=== PATIENT | male | born 1935 | race Caucasian/White ===

== ENCOUNTER 2016-11-26 09:39 | Emergency (ER) | payer MEDICARE, OTHER ==
[~2016-11-26] VITALS: Ht 175.3 cm; Wt 96.4 kg
[~2016-11-26 09:39] MED LIST: ALBU8.5H2 INHALATION; ASPI-973 PO; ATOR80TA77 PO; CALC0.257 PO; CHOL200025 PO; CLOP75TA3 PO; DILT30TA PO; FLUT16SP NASAL; ISOS60TA2 PO; METO75TA PO; NITR0.4T SL; OXYC5TAB72 PO; SENN-133 PO; SODI325T PO; TAMS0.4C29 PO; TORS20TA3 PO
--- NOTE | 2016-11-26 09:40 | ED.REPORT ---
HPI-Syncope Date of Service Nov 26, 2016 ED Provider: Noel Clemons MD 81 year old male with a history of CAD s/p SD with multiple stents, Afib S/p ablation and ESRD on dialysis 3 times weekly who presents to the ER via EMS following a near syncopal episode at the dialysis center ([facility]) today. The patient completed his dialysis and then went to the bathroom while still at the center. While in the bathroom, he felt near syncopal and pulled on the alert string. He was found to be pale and diaphoretic with a BP of 100S. EMS laid the patient on the ground. His color improved and he felt better. Pt denies pain, fever, cough and diarrhea. Pt is not on anticoagulants. He has not taken any of his medications this morning. 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: [facility] Nursing Notes Stated Complaint: SYNCOPE Nursing Notes Reviewed: Yes Allergies: Coded Allergies: Quinolones (Verified Allergy, Severe, destroyed achilles tendons and calf muscle, 04/26/16) ciprofloxacin (Verified Allergy, Intermediate, 04/26/16) Scheduled Aspirin (Aspirin) 81 Mg Tablet 81 MG PO DAILY Atorvastatin Calcium (Atorvastatin Calcium) 80 Mg Tablet 40 MG PO DAILY Calcitriol (Rocaltrol) 0.25 Mcg Capsule 2 CAPSULE PO DAILY Cholecalciferol (Vitamin D3) (Vitamin D3) 2,000 Unit Tablet 1,000 UNIT PO DAILY Clopidogrel Bisulfate (Plavix) 75 Mg Tablet 75 MG PO DAILY Isosorbide MN ER (Isosorbide MN ER) 60 Mg Tab.er.24h 60 MG PO DAILY Metoprolol Tartrate (Metoprolol Tartrate) 75 Mg Tablet 75 MG PO BID Sennosides (Senna) 8.6 Mg Tablet 8.6 MG PO DAILY Sodium Bicarbonate (Sodium Bicarbonate) 325 Mg Tablet 2 TAB PO TID Tamsulosin ER (Tamsulosin ER) 0.4 Mg Cap.er.24h 0.4 MG PO HS Torsemide (Torsemide) 20 Mg Tablet 40 MG PO DAILY Scheduled PRN Albuterol HFA (Proair HFA) 8.5 Gm Hfa.aer.ad 2 PUFFS INHALATION Q4H PRN PRN For Shortness of Breath Diltiazem (Diltiazem) 30 Mg Tablet 30 MG PO QID PRN PRN palpitations Fluticasone Propionate (Fluticasone Propionate Nasal) 16 Gm [place].susp 1 SPRAY NASAL DAILY PRN PRN For Congestion Nitroglycerin SL (Nitrostat) 0.4 Mg Tablet 0.4 MG SL Q5MIN PRN PRN For Chest Pain oxyCODONE (oxyCODONE) 5 Mg Tablet 1 TAB PO Q4H PRN PRN For Pain General Time Seen by Provider: 09:39 Chief Complaint [place] faint Hx Obtained From: Patient, EMS Arrived By: Ambulance Onset Occurred: Just prior to arrival Symptom Duration: Since onset Severity: Current: No pain currently Associated with: Reports: Diaphoresis, Denies: Fever, Shortness of breath Past Medical History Past Medical History Notes: admitted with non STEMI on April 02 2016 with chest pain medically managed and discharged home diagnosis was renal pelvis solid mass without admission went home on and came back on in ER in SVT converted with 2 doses Adenosine and sent home back on with afib with RVR and chest pain On April 06 2016 Metoprol increased to 75 mg twice daily and on Plavix and ASA no other blood thinners. 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 Physical Exam Initial Vital Signs Vital Signs (First) Date Time Temp Pulse Resp B/P Pulse Ox O2 Delivery O2 Flow Rate FiO2 11/26/16 09:49 35.5 130 16 100/59 97 Room Air Initial VS: Reviewed Head / Eyes: Atraumatic, Normocephalic, PERRL ENT: Mucous membranes moist, Conjunctiva normal, No scleral icterus Neck: Supple, Non-tender, Full range of motion Abdomen / GI: Soft, Non-tender, No guarding, No rebound, No distention Upper Extremities: Vascular intact, Neuro intact, No swelling, No tenderness Skin: Warm, Dry, No cyanosis Psychiatric: Mood/affect normal, Behavior normal, Normal thought content General/Constitutional: Awake, Alert Respiratory / Chest: Breath sounds NL, Breath sounds = bilat, No respiratory distress, No rales, No rhonchi, No wheezing Cardiovascular: Heart sounds NL, No murmurs, Cap refill not delayed, Peripheral circulation NL Heart Rate / Rhythm: Positive: Irreg irregular rhythm, Tachycardia Lower Extremity / Pelvis / MS: Full range of motion, Neurologic intact, Vascular intact, No edema Neurologic: Oriented X3, Speech NL, No motor deficits Interpretation & Diagnostics Lab Results Interpretation Result Diagram: 11/26/16 1010 11/26/16 1010 Test 11/26/16 10:10 White Blood Count 5.0th/mm3 (3.8-10.1) Red Blood Count 3.10mil/mm3 (4.40-5.80) Hemoglobin 10.5g/dL (13.8-17.2) Hematocrit 31.2% (41.0-50.0) Mean Corpuscular Volume 100.6fL (81-100) Mean Corpuscular Hemoglobin 33.9pg (27.0-35.0) Mean Corpuscular Hemoglobin Concent 33.7% (32.0-37.0) Red Cell Distribution Width 12.3% (12.3-15.4) Platelet Count 180bil/L (150-400) Neutrophils (%) (Auto) 49.9% (40-74) Lymphocytes (%) (Auto) 22.3% (14-46) Monocytes (%) (Auto) 11.1% (4-12) Eosinophils (%) (Auto) 15.7% (0-5) Basophils (%) (Auto) 0.8% (0-3) Sodium Level 139mEq/L (134-144) Potassium Level 3.1mEq/L (3.5-5.2) Chloride Level 95mEq/L (97-108) Carbon Dioxide Level 26mmol/L (18-29) Blood Urea Nitrogen 13mg/dL (8-27) Creatinine 2.65mg/dL (0.76-1.27) Estimat Glomerular Filtration Rate 25mL/min (>59) Glucose Level 102mg/dL (60-99) Calcium Level 8.6mg/dL (8.5-10.1) Total Bilirubin 0.4mg/dL (0.0-1.2) Aspartate Amino Transf (AST/SGOT) 14U/L (0-50) Alanine Aminotransferase (ALT/SGPT) 10U/L (0-44) Alkaline Phosphatase 70U/L (25-160) Total Creatine Kinase 57U/L (21-232) Creatine Kinase MB 1.9ng/mL (0.0-10.4) Creatine Kinase MB % % (0.0-5.0) Total Protein 6.2g/dL (6.4-8.4) Albumin 3.6g/dL (3.4-5.0) Hold Mendez Top Tube Received (Received) ECG Interpretation ECG Interpretation: PVC present Time: 10:28 Interpreted by: ED physician Normal ECG Interpretation: Normal rate (95) Rhythm / Conduction: Atrial fibrillation Re-Eval/Medical Decision Med Decision/Clinical Course Patient is ambulatory without difficulty and is not symptomatic from his relatively low blood pressure and mild tachycardia. Re-Evaluation/Progress #1: Time of Eval: 12:32 Re-Evaluation/Progress Note: Pt is awake and alert. Heart rate is 111 in Afib. BP 84/50. Re-Evaluation/Progress #2: Time of Eval: 12:57 Re-Evaluation/Progress Note: Pt passed road test. Discussed plan for discharge and follow up. All questions addressed. Counseled Regarding: Diagnosis, Lab results, Need for follow-up, When/why to return to ED Discharge & Departure Impression: Primary Impression: Transient hypotension Additional Impressions: Orthostatic hypotension Atrial fibrillation with rapid ventricular response Disposition: Home Discharge Condition All VS Reviewed: Yes Condition: Stable Patient Instructions: Atrial Fibrillation (ED) Additional Instructions: Your heart rhythm is currently atrial fibrillation. This may require further treatment. I recommend that you follow-up with cardiology to discuss ongoing treatment for this. In the meantime, take your metoprolol one half tablet twice daily. Do not take your blood pressure medication (metoprolol) if your blood pressure is less than 120 and your heart rate is less than 110. Referrals: Valdo Horvath MD (PCP) Janeth Chacon MD, Parampreet S MD [place] Attestation Portions of this note were transcribed by Lindsey Moreland. I, (Dr. Clemons) personally performed the history, physical exam and medical decision-making; I reviewed and confirmed the accuracy of the information in the transcribed note. Signed by: Lindsey Moreland. Ramiroibjory, 11/26/2016, 9554 copies to: Janeth Chacon MD; Alka Khoury MD; Valdo Horvath MD, Kirk H MD Nov 26, 2016 09:40 Lindsey Moreland Nov 26, 2016 09:43
[2016-11-26 09:49] VITALS: BP 100/59; PULSE 130; RESP 16; O2SAT 97
[2016-11-26 10:10] VITALS: BP 94/64; PULSE 115; RESP 18; O2SAT 97
[2016-11-26 10:24] LABS: BASOPHILS % (AUTO) 0.8 % (0-3); EOSINOPHILS % (AUTO) 15.7 % (0-5); MONOCYTES % (AUTO) 11.1 % (4-12); Mean Corpuscular Hemoglobin 33.9 pg (27.0-35.0); Mean Corpuscular Volume 100.6 fL (81-100); NEUTROPHILS % (AUTO) 49.9 % (40-74); Platelet Count 180 bil/L (150-400)
[2016-11-26 10:40] VITALS: BP 100/62; PULSE 115; RESP 18; O2SAT 97
[2016-11-26 11:07] LABS: Creatine Kinase 57 U/L (21-232)
[2016-11-26 11:50] VITALS: BP 98/60; PULSE 108; RESP 18; O2SAT 98
[2016-11-26 12:40] VITALS: BP 84/50; PULSE 102; RESP 18; O2SAT 97
[2016-11-26 12:45] VITALS: BP 106/57; PULSE 110; RESP 18; O2SAT 97
== END 2016-11-26 13:33 | disposition home or self-care (01) ==
LOC: SED 09:39
DX: I95.1 Orthostatic hypotension (principal); I48.91 Unspecified atrial fibrillation; I13.11 Hypertensive heart and chronic kidney disease without heart failure, with stage 5 chronic kidney disease, or end stage renal disease; N18.6 End stage renal disease; I25.10 Atherosclerotic heart disease of native coronary artery without angina pectoris; I25.2 Old myocardial infarction; K21.9 Gastro-esophageal reflux disease without esophagitis; E78.5 Hyperlipidemia, unspecified; Z99.2 Dependence on renal dialysis; Z95.5 Presence of coronary angioplasty implant and graft; Z79.82 Long term (current) use of aspirin; Z87.891 Personal history of nicotine dependence; Z88.1 Allergy status to other antibiotic agents; Z88.8 Allergy status to other drugs, medicaments and biological substances

== ENCOUNTER 2017-01-03 08:40 | Emergency (ER) | payer MEDICARE, OTHER ==
[~2017-01-03] VITALS: Ht 175.3 cm; Wt 97.3 kg
[2017-01-03 08:49] VITALS: BP 145/70; PULSE 87; RESP 18; O2SAT 100
--- NOTE | 2017-01-03 09:00 | ED.REPORT ---
HPI-General Illness Date of Service Jan 03, 2017 ED Provider: Noel Clemons MD An 81 year old male dialysis patient in ESRD with a history of ND, HTN, and nephrolithiasis presents to the ED via EMS c/o urine retention and abdominal pain described as cramps, his last urination occurring 6-8 hours before arrival at ED. At 0200 today, the patient woke up and could not urinate, sitting on the toilet for the rest of the night trying to urinate with no success. He feels like his bladder is full and there is still something left. He denies that symptoms feel like past nephrolithiasis. He normally urinates every 3 hours night and day, but reports never experiencing urinary retention like this in the past, and has never seen blood in his urine before. Associated symptoms include hematuria, spasms, and increased painful BM. Per EMS, two IV access attempts were made en route with no success. He has a fistula on his right arm. He took hydrocodone today at 0830 which made his pain tolerable, and normally takes tamsulosin. He did not go to scheduled 0530 dialysis that was scheduled for this morning. He denies any fever, chills, or nausea. He has not seen a urologist lately. Nursing Notes Stated Complaint: URINARY RETENTION Chief Complaint: General Complaint Nursing Notes Reviewed: Yes Allergies: Coded Allergies: Quinolones (Verified Allergy, Severe, destroyed achilles tendons and calf muscle, 04/26/16) ciprofloxacin (Verified Allergy, Intermediate, 04/26/16) Scheduled Aspirin (Aspirin) 81 Mg Tablet 81 MG PO DAILY Atorvastatin Calcium (Atorvastatin Calcium) 80 Mg Tablet 40 MG PO DAILY Calcitriol (Rocaltrol) 0.25 Mcg Capsule 2 CAPSULE PO DAILY Cholecalciferol (Vitamin D3) (Vitamin D3) 2,000 Unit Tablet 1,000 UNIT PO DAILY Clopidogrel Bisulfate (Plavix) 75 Mg Tablet 75 MG PO DAILY Isosorbide MN ER (Isosorbide MN ER) 60 Mg Tab.er.24h 60 MG PO DAILY Metoprolol Tartrate (Metoprolol Tartrate) 75 Mg Tablet 75 MG PO BID Sennosides (Senna) 8.6 Mg Tablet 8.6 MG PO DAILY Sodium Bicarbonate (Sodium Bicarbonate) 325 Mg Tablet 2 TAB PO TID Tamsulosin ER (Tamsulosin ER) 0.4 Mg Cap.er.24h 0.4 MG PO HS Torsemide (Torsemide) 20 Mg Tablet 40 MG PO DAILY Scheduled PRN Albuterol HFA (Proair HFA) 8.5 Gm Hfa.aer.ad 2 PUFFS INHALATION Q4H PRN PRN For Shortness of Breath Diltiazem (Diltiazem) 30 Mg Tablet 30 MG PO QID PRN PRN palpitations Fluticasone Propionate (Fluticasone Propionate Nasal) 16 Gm [place].susp 1 SPRAY NASAL DAILY PRN PRN For Congestion Nitroglycerin SL (Nitrostat) 0.4 Mg Tablet 0.4 MG SL Q5MIN PRN PRN For Chest Pain oxyCODONE (oxyCODONE) 5 Mg Tablet 1 TAB PO Q4H PRN PRN For Pain General Time Seen by MD: 08:59 Chief Complaint Other (urine retention.) Hx Obtained From: Patient, EMS Arrived By: Ambulance Sudden in Onset?: No Onset Occurred: 5 - 8 hours ago Symptom Duration: Since onset Severity: Current: Moderate Severity: Maximum: Moderate Recent Healthcare: Recent doctor visit Similar Sx Previous: No Past Medical History Past Medical History Notes: admitted with non STEMI on April 02 2016 with chest pain medically managed and discharged home diagnosis was renal pelvis solid mass without admission went home on and came back on in ER in SVT converted with 2 doses Adenosine and sent home back on with afib with RVR and chest pain On April 06 2016 Metoprol increased to 75 mg twice daily and on Plavix and ASA no other blood thinners. 11/26/2016 ED visit for near syncopal episode after dialysis appointment. 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 Hyperlipidemia Secondary hyperparathyroidism Moderate mitral regurgitation Reports: Asthma, Cancer (skin cancer removed at approx age 50), Congestive heart failure, Hypertension Past Surgical History Reports: CABG Smoking History Former Smoker (quit approx 30 years ago) Social History Alcohol Use: 1-3 per day Drug Use: Denies drug use Other Social History: Ambulatory Status Independent Review of Systems Spasms Increased, painful BM Full Review of Systems Constitutional: Denies: Chills, Fever GI: Reports: Abdominal pain, Denies: Nausea Male: Reports Hematuria, Reports Urination decreased (urine retention) Complete sys rev & neg: except as marked. Physical Exam Vital Signs Vital Signs Date Time Temp Pulse Resp B/P Pulse Ox O2 Delivery O2 Flow Rate FiO2 01/03/17 13:06 36.8 88 18 140/72 99 Room Air 01/03/17 08:49 36.8 87 18 145/70 100 Room Air Initial VS: Reviewed General/Constitutional: Awake, Alert Head / Eyes: Atraumatic, Normocephalic, PERRL, EOMI ENT: Atraumatic, Mucous membranes moist Respiratory / Chest: Atraumatic, Breath sounds NL, Breath sounds = bilat, No respiratory distress, No rales, No rhonchi, No wheezing Cardiovascular: Heart rate NL, Regular rhythm, Heart sounds NL, No gallop, No murmurs, No rubs No peripheral edema. Tenderness/Guarding/Rebound: Positive: Tender diffuse (Tender abdomen), Tender suprapubic (mild) Skin: Warm, Dry Neurologic: Oriented X3, Speech NL Interpretation & Diagnostics Lab Results Interpretation Test 01/03/17 09:16 Urine Color Red (YELLOW) Urine Appearance Turbid (CLEAR,HAZY) Urine pH 7.5 (5.0-8.0) Urine Specific [place] 1.025 (1.003-1.035) Urine Protein >300mg/dL (NEG,TRACE) Urine Glucose (UA) 250mg/dL (NEGATIVE) Urine Ketones Negativemg/dL (NEGATIVE) Urine Occult Blood Large (NEGATIVE) Urine Nitrite Negative (NEGATIVE) Urine Bilirubin Negative (NEGATIVE) Urine Urobilinogen Normalmg/dL (NORMAL) Urine Leukocyte Esterase Negative (NEGATIVE) Urine RBC Packed/hpf (0-2) Urine WBC 0-5/hpf (0-5) Urine Epithelial Cells Occasional/hpf (NONE-MOD) Urine Crystals None seen (NONE SEEN) Urine Bacteria None/hpf (NONE-FEW) Urine Hyaline Casts None/lpf (NONE) Urine Granular Casts None seen (NONE SEEN) Urine Waxy Casts None seen (NONE SEEN) Urine Red Blood Cell Casts None seen (NONE SEEN) Urine White Blood Cell Casts None seen (NONE SEEN) Urine Mucus None seen (None Seen) Urine Trichomonas None seen (NONE SEEN) Urine Yeast None (NONE SEEN) Urinalysis Comment None Urine Culture Reflexed Not indicated Hold Urine Received (Received) Re-Eval/Medical Decision Source of Hx: Old records, EMS Time of Eval: 09:16 Re-Evaluation/Progress Note: 400 cc of blood came out of catheter. Patient reports that they do not normally urinate very much. He feels signifigantly better with catheter. He does report occasional spasms. Time of Eval: 09:55 Patient Status: Condition improved Re-Evaluation/Progress Note: Rechecked patient who reports that he is feeling much better since catheter placement. He normally takes hydrocodone and oxycodoe, he would like oxycodone. Time of Eval: 12:11 Re-Evaluation/Progress Note: Rechecked patient and placed catheter. Explained test results, diagnosis, and plan for discharge. Patient understands and agrees with the plan. All questions addressed. Counseled Regarding: Diagnosis, Lab results, Need for follow-up Discharge & Departure Primary Impression: Acute urinary retention Additional Impression: Gross hematuria Disposition: Home Discharge Condition All VS Reviewed: Yes Condition: Stable Patient Instructions: Acute Hematuria (ED), How to Care for Your [place] Catheter (ED) Additional Instructions: No evidence of infection at this time. We were able to relieve the blockage of flow by inserting a urinary catheter. Please leave this in place until you are seen at the urology clinic. Follow up right away for fever or excessive pain or vomiting. Referrals: Valdo Horvath MD (PCP) Sotero Vera MD Other Scribe Attestation Portions of this note were transcribed by Francesco Collazo. I, Dr. Clemons personally performed the history, physical exam and medical decision-making; I reviewed and confirmed the accuracy of the information in the transcribed note. Signed by: Yennifer You, 01/03/2017, 1241. copies to: Sotero Vera MD; Valdo Horvath MD, Kirk H MD Jan 03, 2017 09:00 Francesco Collazo Jan 03, 2017 09:06
[2017-01-03] MEDS ORDERED: oxyCODONE-Acetamin 5-325 mg Tablet PO ONE (10:00)
[2017-01-03 10:40] LABS: APPEARANCE,URINE TURBID (CLEAR,HAZY); COLOR,URINE RED (YELLOW); OCCULT BLOOD,URINE LARGE (NEGATIVE); PH,URINE 7.5 (5.0-8.0); UROBILINOGEN,URINE NORMAL (NORMAL)
[2017-01-03 13:06] VITALS: BP 140/72; PULSE 88; RESP 18; O2SAT 99
== END 2017-01-03 12:25 | disposition home or self-care (01) ==
LOC: EDUNIT# 08:40 → EDBD 08:40 → SED 08:40
DX: R33.8 Other retention of urine (principal); R31.0 Gross hematuria; I13.2 Hypertensive heart and chronic kidney disease with heart failure and with stage 5 chronic kidney disease, or end stage renal disease; I50.9 Heart failure, unspecified; N18.6 End stage renal disease; I25.2 Old myocardial infarction; I25.10 Atherosclerotic heart disease of native coronary artery without angina pectoris; E78.5 Hyperlipidemia, unspecified; K21.9 Gastro-esophageal reflux disease without esophagitis; Z87.891 Personal history of nicotine dependence; Z95.1 Presence of aortocoronary bypass graft; Z87.442 Personal history of urinary calculi; Z99.2 Dependence on renal dialysis; Z79.02 Long term (current) use of antithrombotics/antiplatelets; Z79.82 Long term (current) use of aspirin; Z79.899 Other long term (current) drug therapy; Z88.1 Allergy status to other antibiotic agents; Z88.8 Allergy status to other drugs, medicaments and biological substances

== ENCOUNTER 2017-01-05 17:10 | Inpatient (IN) | payer MEDICARE, OTHER ==
[~2017-01-05] VITALS: Ht 177.8 cm; Wt 93.4 kg
[2017-01-05 17:22] VITALS: BP 92/56; PULSE 98; RESP 18; O2SAT 94
--- NOTE | 2017-01-05 18:45 | ED.REPORT ---
HPI-Abd Pain M 40 and Over Date of Service Jan 05, 2017 ED Provider: Dr. Riley Marte MD A 50 year old male with a history of ESRD, hyperlipidemia, hypertension, CAD s/ p [place], nephrolithiasis, GERD, hepatitis C, and EtOH abuse presents to the ED with urinary retention that began earlier this evening. Associated symptoms include suprapubic abdominal cramping and mild abdominal distension. Patient took Oxycodone prior to arrival with little relief and his discomfort has become increasingly worse than onset. Patient was seen in the ED on 01/03 for similar symptoms including right flank pain, hematuria and urinary retention. His symptoms improved after relieving the blockage with a catheter and was discharged in good condition. Patient is a poor historian. Nursing Notes Stated Complaint: ABDOMINAL PAIN Chief Complaint: Male Abdominal Pain Nursing Notes Reviewed: Yes Allergies: Coded Allergies: Quinolones (Verified Allergy, Severe, destroyed achilles tendons and calf muscle, 01/05/17) ciprofloxacin (Verified Allergy, Intermediate, 01/05/17) Scheduled Aspirin (Aspirin) 81 Mg Tablet 81 MG PO QAM Atorvastatin Calcium (Atorvastatin Calcium) 80 Mg Tablet 80 MG PO HS Calcitriol (Rocaltrol) 0.25 Mcg Capsule 0.5 MCG PO QAM Cholecalciferol (Vitamin D3) (Vitamin D3) 2,000 Unit Tablet 2,000 UNIT PO QAM Clopidogrel Bisulfate (Plavix) 75 Mg Tablet 75 MG PO QAM Finasteride (Finasteride) 5 Mg Tablet 5 MG PO QAM Lysine (Lysine) 1,000 Mg Tablet 1,000 MG PO QAM Metoprolol Tartrate (Metoprolol Tartrate) 25 Mg Tablet 25 MG PO QAM Omeprazole (Omeprazole) 20 Mg Capsule.dr 20 MG PO QAM Sennosides (Senna) 8.6 Mg Tablet 8.6 MG PO QAM Sevelamer Carbonate (Renvela) 800 Mg Tablet 800 MG PO TIDWM Sodium Bicarbonate (Sodium Bicarbonate) 325 Mg Tablet 650 MG PO TID Tamsulosin ER (Tamsulosin ER) 0.4 Mg Cap.er.24h 0.4 MG PO HS Torsemide (Torsemide) 20 Mg Tablet 40 MG PO QAM Scheduled PRN Albuterol HFA (Proair HFA) 8.5 Gm Hfa.aer.ad 2 PUFFS INHALATION Q4H PRN PRN For Shortness of Breath Diltiazem (Diltiazem) 30 Mg Tablet 30 MG PO QID PRN PRN palpitations Fluticasone Propionate (Fluticasone Propionate Nasal) 16 Gm [place].susp 1 SPRAY NASAL DAILY PRN PRN For Congestion Hyoscyamine (Hyoscyamine) 0.125 Mg Tablet 0.125 MG PO Q4H PRN PRN BLADDER SPASMS Nitroglycerin SL (Nitrostat) 0.4 Mg Tablet 0.4 MG SL Q5MIN PRN PRN For Chest Pain Oxycodone HCl/Acetaminophen (Endocet 10-325 mg Tablet) 1 Each Tablet 1-2 EACH PO Q4H PRN PRN For Pain Triamcinolone Acet (Triamcinolone Acetonide Ointment) 1 Applic/0.25 Gm Oint 1 APPLIC TOP BID PRN PRN RASH General Time Seen by MD: 18:45 Chief Complaint Abdominal pain Hx Obtained From: Patient Arrived By: Walk-in Sudden in Onset?: No Onset Occurred: 9 - 12 hours ago Symptom Duration: Since onset Progression since Onset: Gradually worsening Location: : Suprapubic Quality: Painful Severity: Current: Moderate Severity: Maximum: Moderate Associated with: Reports: Hematuria, Urinary retention Pertinent Negative: Pt denies other symptoms Recent Healthcare: No recent doctor visit, No recent hospitalization Risk Factors )( AAA Risk Stratification Hypertension Risk factors reviewed Past Medical History Past Medical History Notes: Admitted with non STEMI on April 02 2016 with chest pain medically managed and discharged home diagnosis was renal pelvis solid mass without admission went home on and came back on in ER in SVT converted with 2 doses Adenosine and sent home back on with afib with RVR and chest pain On April 06 2016 Metoprol increased to 75 mg twice daily and on Plavix and ASA no other blood thinners. 11/26/2016 ED visit for near syncopal episode after dialysis appointment. 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 Physical Exam Initial Vital Signs Vital Signs (First) Date Time Temp Pulse Resp B/P Pulse Ox O2 Delivery O2 Flow Rate FiO2 01/05/17 17:22 35.9 98 18 92/56 94 Room Air Initial VS: Reviewed Head / Eyes: Atraumatic, Normocephalic, PERRL Neck: Supple, Non-tender, Full range of motion Extremities: Vascular intact, Neuro intact, No swelling, No tenderness Skin: Warm, Dry, No cyanosis Neurologic: Alert, Oriented, Nonfocal Psychiatric: Mood/affect normal, Behavior normal, Normal thought content General/Constitutional: Awake, Alert Distress / Hydration: Positive: Distress moderate Respiratory / Chest: Atraumatic, No respiratory distress Cardiovascular: Heart rate NL, Regular rhythm, Heart sounds NL Abdomen: Atraumatic, Soft Tenderness/Guarding/Rebound: Positive: Tender suprapubic Back: Atraumatic Flank / Spine / Paraspinal: Positive: Flank tender R Interpretation & Diagnostics Lab Results Interpretation Result Diagram: 01/06/17 1710 01/06/17 0545 Test 01/05/17 19:10 Prothrombin Time 9.8sec (8.1-12.5) Prothromb Time International Ratio 0.92ratio Total Bilirubin 0.3mg/dL (0.0-1.2) Aspartate Amino Transf (AST/SGOT) 14U/L (0-50) Alanine Aminotransferase (ALT/SGPT) 15U/L (0-44) Alkaline Phosphatase 70U/L (25-160) Total Protein 7.4g/dL (6.4-8.4) Albumin 4.3g/dL (3.4-5.0) Hold Mendez Top Tube Received (Received) CT Chest Interpretation IMPRESSION: 1. Large heterogeneous enhancing right renal mass which could represent renal cell carcinoma with hemorrhage versus large hemorrhagic cyst. 2. Bilateral renal cysts. 3. Small, bilateral nonobstructing renal stones. 4. No hydronephrosis. 5. Atherosclerosis including the visualized coronary vasculature. 6. Dictated by: Laila Zaragoza MD, PhD on 01/05/2017 at 20:30 Study type: Chest CT no contrast Interpretation / Wet Read by: Interpret - Radiologist Re-Eval/Medical Decision Time of Eval: 20:46 Patient Status: Condition improved Re-Evaluation/Progress Note: Patient is informed of his CT results and diagnosis. All of the patient's questions are addressed. He understands and agrees with treatment plan. Consultation #1: Referral / Consult Name: Jessica Eubanks MD Call Returned at: 20:47 Sleeve Fixer: Will see patient, Agrees with eval, Agrees with plan Consultation #2: Referral / Consult Name: Roxie Briceno DO Call Returned at: 21:01 Sleeve Fixer: Will see patient, Agrees with eval, Agrees with plan, Accepts admit Counseled Regarding: Diagnosis, Lab results, Need for admission Discharge & Departure Primary Impression: Intractable abdominal pain Additional Impression: Renal mass Disposition: ADMITTED TO HOSPITAL Vital Signs - All Vital Signs Date Time Temp Pulse Resp B/P Pulse Ox O2 Delivery O2 Flow Rate FiO2 01/05/17 17:22 35.9 98 18 92/56 94 Room Air )( All Prior VS Reviewed: Yes Condition: Stable Referrals: Valdo Horvath MD (PCP) Scribe Attestation Portions of this note were transcribed by Richi Marx. I, Dr. Marte personally performed the history, physical exam and medical decision-making; I reviewed and confirmed the accuracy of the information in the transcribed note. Signed by: Yennifer Sigala, 01/05/17 2110. copies to: Valdo Horvath MD, Todd P DO Jan 05, 2017 18:45 RICHI MARX Jan 05, 2017 18:53 Total Bilirubin 0.3mg/dL (0.0-1.2) Aspartate Amino Transf (AST/SGOT) 14U/L (0-50) Alanine Aminotransferase (ALT/SGPT) 15U/L (0-44) Alkaline Phosphatase 70U/L (25-160) Total Protein 7.4g/dL (6.4-8.4) Albumin 4.3g/dL (3.4-5.0) Hold [place]endez Top Tube Received (Received) Hold Purple Top Tube Received (Received) Hold [place] Top Tube Received (Received) CT Chest Interpretation
[2017-01-05] MEDS ORDERED: Ondansetron 2 mg/mL 2 mL Inj IVPUSH PRN (18:50)
[2017-01-05] MEDS: HYDROmorphone 0.5 mg/0.5 mL iSecure Syringe IVPUSH PRN ×2 (19:09→19:29)
[2017-01-05 19:49] LABS: BASOPHILS % (AUTO) 0.7 % (0-3); EOSINOPHILS % (AUTO) 9.1 % (0-5); MONOCYTES % (AUTO) 8.1 % (4-12); Mean Corpuscular Hemoglobin 33.8 pg (27.0-35.0); Mean Corpuscular Volume 106.9 fL (81-100); NEUTROPHILS % (AUTO) 56.8 % (40-74); Platelet Count 235 bil/L (150-400)
[2017-01-05 20:04] LABS: INR 0.92 ratio
--- NOTE | 2017-01-05 20:41 | DRSVH ---
PROCEDURE: CT KUB ([id number]) INDICATIONS: flank pain, hematuria TECHNIQUE: Noncontrast 5 mm thick sections acquired from the diaphragms to the symphysis. 5 mm thick coronal an d sagittal reformats were then performed. For radiation dose reduction, the following was used: aut omated exposure control, adjustment of mA and/or kV according to patient size. COMPARISON: [facility], CT, KUB - CT ([facility]), 04/08/2008, 9:58. [facility] , CT, KUB - CT ([facility]), 09/20/2005, 19:31. FINDINGS: Image quality: Excellent. Lung bases: Lung bases are clear. Heart size is normal. Atherosclerotic calcifications noted in the visualized coronary vasculature. Urinary system: Multiple bilateral renal cysts are noted. There is a 7.6 x 10.3 x 7.6 cm heterogene ously enhancing mass involving the right kidney. 2 mm nonobstructing stone is noted in the superior pole of the left kidney. A 3 mm nonobstructing stone is noted in the midpole of the left kidney. 4 mm nonobstructing stone is noted in the interpolar the right kidney. No hydronephrosis or perinephri c fat stranding. Both ureters appear non-dilated throughout their expected courses. Urinary bladder is completely decompressed by Lake catheter. Bladder wall thickness is normal; no calcified bladder stones. Other solid organs: Liver and spleen are normal in size. Multiple hepatic cysts are stable compared to prior examination. Gallbladder is within normal limits. Pancreas is normal in contours. No adren al nodules. Peritoneum and bowel: Unenhanced bowel loops demonstrate normal wall thickness and caliber. Scattere d diverticuli noted in the colon without evidence of diverticulitis. No free fluid or air. The append ix is normal. Nodes and vessels: No retroperitoneal or mesenteric adenopathy by size criteria. Aorta and inferior vena cava are normal in caliber. Atherosclerotic calcifications noted in the abdominal and pelvic va sculature. Abdominal wall: No ventral hernias. Pelvis: No free pelvic fluid. No inguinal hernias or adenopathy. Bones: No suspicious bony lesions. No vertebral body compression fractures. IMPRESSION: 1. Large heterogeneous enhancing right renal mass which could represent renal cell carcinoma with he morrhage versus large hemorrhagic cyst. 2. Bilateral renal cysts. 3. Small, bilateral nonobstructing renal stones. 4. No hydronephrosis. 5. Atherosclerosis including the visualized coronary vasculature. 6. Dictated by: Laila Zaragoza MD, PhD on 01/05/2017 at 20:30 Approved by: Laila Zaragoza MD, PhD on 01/05/2017 at 20:40
[2017-01-05] MEDS ORDERED: LYSI1000 PO (21:37)
[2017-01-05] MEDS ORDERED: FINA5TAB9 PO (21:37)
[2017-01-05] MEDS ORDERED: METO25TA6 PO (21:37)
[2017-01-05] MEDS ORDERED: HYOS0.1216 PO (21:37)
[2017-01-05] MEDS ORDERED: OXYC1TAB91 PO (21:37)
[2017-01-05] MEDS ORDERED: OMEP20CA11 PO (21:37)
[2017-01-05] MEDS ORDERED: KEN1O TOP (21:37)
[2017-01-05] MEDS ORDERED: Alum-Mag Hydrox-Simeth 30 mL Suspension PO PRN (21:40)
[2017-01-05] MEDS ORDERED: Polyethylene Glycol (PEG) 17 Gm Powder PO PRN (21:40)
--- NOTE | 2017-01-05 22:10 | PCM.HPMED ---
Subjective Date of Service Jan 05, 2017 Primary Provider: Admitting Physician: Roxie Briceno DO Primary Care Physician: Valdo Horvath MD Attending Physician: Roxie Briceno DO Admit Status: From the Emergency Department, Remote Telemetry Chief Complaint: Urinary retention with associated suprapubic cramping, distention, right-sided flank pain, and hematuria History of Present Illness: Mr. Castro is an 81-year-old gentleman with a history of ESRD on HD with production of urine, coronary artery disease status post CABG + PCI 2 stents, nephrolithiasis, hyperlipidemia, and history of alcohol abuse, that presented to the emergency department with acute on chronic urinary retention with associated suprapubic abdominal cramping, abdominal distention, and right-sided flank pain; he was seen 2 days prior to this admission for similar symptoms and was discharged with a catheter. He returns today for ongoing symptom management secondary to worsening of presenting symptoms. CT KUB on admission revealed a large heterogeneous enhancing of his right renal mass, suggestive of renal cell carcinoma with hemorrhage versus large hemorrhagic cyst. He was admitted for evaluation and treatment of his symptoms and the CT findings. Hospital day 1 Mr. Castro is a poor historian, which is complicated by the recent administration of Valium while in the emergency department. This made it extremely difficult to extract any details about his past medical history. He was able to endorse his abdominal pain, with his associated right flank pain. He denied any fever, chills, nausea, vomiting, shortness of breath, chest pain. He first stated his location as [place], [place], and when asked the date, he replied that he "knows where he is." He was later able to accurately state that he was in [place], but his response was unrelated to the current question at hand. He states his urinary symptoms have been ongoing over the recent months. He states he has missed his most recent 2 dialysis sessions, but the details are unclear, he is followed by Dr. Khoury. When asked if he knew why he was here, he did accurately state that he is aware that he has a right-sided renal finding which might be "bleeding, or causing clots." His lucidity waxed and waned throughout the interview. In the ED, initial vitals included T 35.9, pulse 98, respiratory rate 18, blood pressure 92/56, 94% on room air; after the administration of Valium, his respiratory rates were noted to drop into the 80s despite supplemental oxygen therapy. He was arousable. Initial lab findings revealed WBC 8.3, hemoglobin 11.3, platelets 235, BUS 48, creatinine 7.56, LFTs within range; UA was ordered and collected, results pending at time of admission. Initial therapies included Dilaudid 0.5 mg, Valium [address] KUB revealed large heterogeneous enhancement of the right renal mass which is suggestive of renal cell carcinoma with hemorrhage or large hemorrhagic cyst , in addition to that finding bilateral renal cysts, small bilateral nonobstructing renal stones were also seen without any evidence of hydronephrosis, coronary vasculature was noted to be atherosclerotic. The large heterogeneous enhancing mass measured 7.6 x 10.3 x 7.6 cm within the right kidney. Multiple stones were noted, nonobstructing, measured at 2, 3, and 4 mm. The bladder wall thickness was noted to be normal, and there were no calcified bladder stones observed. The ED contacted the on-call urologist, who has kindly agreed to consult on the patient. The patient was in stable condition awaiting transfer to [facility]. Review of Systems: Complete review of systems attempted to be obtained, complicated by recent administration of Valium. Pertinent positives and negatives were noted as above Allergies Coded Allergies: Quinolones (Verified Allergy, Severe, destroyed achilles tendons and calf muscle, 01/05/17) ciprofloxacin (Verified Allergy, Intermediate, 01/05/17) Home Medications Obtained from ED documentation, patient is currently unable to verify med list secondary to effects of recent medications administered: Aspirin (Aspirin) 81 Mg Tablet 81 MG PO DAILY Atorvastatin Calcium (Atorvastatin Calcium) 80 Mg Tablet 40 MG PO DAILY Calcitriol (Rocaltrol) 0.25 Mcg Capsule 2 CAPSULE PO DAILY Cholecalciferol (Vitamin D3) (Vitamin D3) 2,000 Unit Tablet 1,000 UNIT PO DAILY Clopidogrel Bisulfate (Plavix) 75 Mg Tablet 75 MG PO DAILY Isosorbide MN ER (Isosorbide MN ER) 60 Mg Tab.er.24h 60 MG PO DAILY Metoprolol Tartrate (Metoprolol Tartrate) 75 Mg Tablet 75 MG PO BID Sennosides (Senna) 8.6 Mg Tablet 8.6 MG PO DAILY Sodium Bicarbonate (Sodium Bicarbonate) 325 Mg Tablet 2 TAB PO TID Tamsulosin ER (Tamsulosin ER) 0.4 Mg Cap.er.24h 0.4 MG PO HS Torsemide (Torsemide) 20 Mg Tablet 40 MG PO DAILY Scheduled PRN Albuterol HFA (Proair HFA) 8.5 Gm Hfa.aer.ad 2 PUFFS INHALATION Q4H PRN PRN For Shortness of Breath Diltiazem (Diltiazem) 30 Mg Tablet 30 MG PO QID PRN PRN palpitations Fluticasone Propionate (Fluticasone Propionate Nasal) 16 Gm Alvord.susp 1 SPRAY NASAL DAILY PRN PRN For Congestion Nitroglycerin SL (Nitrostat) 0.4 Mg Tablet 0.4 MG SL Q5MIN PRN PRN For Chest Pain oxyCODONE (oxyCODONE) 5 Mg Tablet 1 TAB PO Q4H PRN PRN For Pain PMH CAD s/p IA with CABG approximately 19 years ago, 2 stent placements in 2014 Dyslipidemia GERD Nephrolithiasis ESRD on HD Vitamin D deficiency BPH 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 Hyperlipidemia Secondary hyperparathyroidism Moderate mitral regurgitation, aortic stenosis Atrial fibrillation, on aspirin therapy Paroxysmal tachycardia Reports: Asthma, Cancer, Congestive heart failure, Hypertension Surgical History CABG approximately 20 years ago completed in [place] PCI 2 stents 2014; RCA stenting completed in [place], [place] Right AV fistula placement by Dr. Irizarry 2013 Lithotripsy 2004 Family History Per chart documentation: Family history of heart failure, unspecified type or etiology; no known early coronary disease Social History Hx Alcohol Use: Yes Alcoholic Drinks Per Day: 1 shot whiskey daily Hx Substance Use: No Hx Tobacco Use: Yes (quit) Smoking Status: Former Smoker (quit more than 40 years ago, 1 pack per day 15 years) Exam Vital Signs Vital Sign - Last Date Time Temp Pulse Resp B/P Pulse Ox O2 Delivery O2 Flow Rate FiO2 01/05/17 17:22 35.9 98 18 92/56 94 Room Air Exam General: Patient resting supine in bed in no acute distress, cooperative but intermittently somnolent HEENT: Atraumatic, nasal cannula in place, sclera anicteric, mucous membranes moist Cardiac: Regular rhythm at time of examination with 3/6 systolic murmur Respiratory: Poor expiratory effort, decreased airflow, but without any rhonchi or wheeze Abdomen: Soft, nondistended; mild tenderness reported suprapubic and bilateral lower quadrant : 3-way Lake in place, urine blood-tinged and red; no active bleeding noted from the meatus Extremities: No edema of bilateral upper or lower extremities; RUE notable for fistula with thrill Pulses: Radial equal and bilateral Skin: Warm and dry Neuro: Difficult to assess secondary to effects of medications administered; patient was able to follow some commands but had limited attention span; facial expressions were symmetric, and speech was without slur until he became fatigued and his speech trailed off; there were no acute focal neurological findings Psych: Again, difficult to assess secondary to medications administered; he did answer questions appropriately, although some answers were incorrect; cannot assess insight and judgment this time Lab and Diagnostics Result Diagram: 01/05/[id number]/05/[id number] Assessment & Plan Mr. 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 He returns today for ongoing symptom management secondary to worsening of presenting symptoms. CT KUB on admission revealed a large heterogeneous enhancing of his right renal mass, suggestive of renal cell carcinoma with hemorrhage versus large hemorrhagic cyst. He was admitted for evaluation and treatment of his symptoms and the CT findings. Hospital day 1 Hematuria, urinary retention, and suprapubic tenderness, acute, present on admission. Under evaluation - ED contacted urology; consult order has been placed - Patient has Lake in place - Holding anticoagulation at this time Right renal mass, chronic. Presumed unstable - Seen on CT on admission, with findings suggestive of active bleeding - Urology consult as noted above - Consider surgical consultation Bladder spasms, acute, present on admission. Ongoing - Likely secondary to above - Valium proved to be too effective, and compromised his mentation and respiratory status; avoid - Patient appeared to tolerate IV Dilaudid while in the emergency department, this was continued prn pain and spasm - Preliminary home med list indicates oxycodone - Home urinary medications indicate hyoscyamine for bladder spasm, continued ESRD on HD, chronic. Presumed stable - Right fistula utilized; HD on , - Auto Roller: Dr. Khoury - Nephrology consult order placed; please contact team in morning with verbal report - Continued renal medications that were on reconciliation at time of admission: Renvela Coronary artery disease status post CABG, stent placement, chronic. Presumed stable - Continue statin, beta patricia History of AV re-entrant tachycardia s/p ablation, chronic. Presumed stable - Monitor with telemetry - We will need to verify medications, as Imdur was prescribed at recent admission 04/2016, but does not appear on current medication list BPH, chronic. Presumed stable - Resume medications when reconciliation completed Asthma, chronic. Presumed stable - Accu nebs as needed History of alcohol use, chronic. Presumed stable - Reports of whiskey daily; unable to accurately assess secondary to Valium effects - Monitor for signs and symptoms of withdrawal - Stable at this time - Banana bag given as precaution GERD, chronic. Presumed stable - Resume home PPI Goals of care - Patient stated that he wanted to "try" if anything were to happen to him but he does not wish for prolonged care - Encourage completion of POLST when patient is of clear mind Please double check medication list in the morning, as there is some discrepancy from previous discharge 04/2016 with medication list currently on file; patient was not of sound mind to recall medications at time of admission PRN: Fever/bowel/pain/nausea DVT: SCDs only at this time secondary to possibility of active bleeding renal mass GI: PPI Diet: Heart healthy CODE STATUS: Full code Patient status: Due to severity of presenting symptoms, risk of adverse events, and likely course of care, anticipated length of stay exceeds 2 midnight; patient admitted as inpatient status Pain Evaluation: Adequate Pain Control GI Prophylaxis: Proton Pump Inhibitor VTE Prophylaxis: SCDs Resuscitation Status: CPR: Attempt Resuscitation Attending Statement The patient was seen and examined together with house staff on 01/05/2017 and I agree with the history, exam and plan as outlined in the note above. Priya Santiago DO Jan 05, 2017 22:10 Roxie Briceno DO Jan 06, 2017 03:56
[2017-01-05] MEDS ORDERED: SEVE800T7 PO (22:19)
[2017-01-05] MEDS ORDERED: SODI325T PO (22:20)
[2017-01-05 22:39] LABS: APPEARANCE,URINE CLOUDY (CLEAR,HAZY); COLOR,URINE RED (YELLOW); OCCULT BLOOD,URINE LARGE (NEGATIVE); UROBILINOGEN,URINE NORMAL (NORMAL)
[2017-01-05 22:43] LABS: ICTOTEST,URINE POSITIVE (Negative)
[2017-01-05 22:58] VITALS: BP 120/72; PULSE 116; RESP 16; O2SAT 94
[2017-01-05 23:34] VITALS: BP 138/76; PULSE 97; RESP 20; O2SAT 100
[2017-01-06] VITALS (8 sets, daily range): BP systolic 111–129; BP diastolic 70–77; PULSE 88–114; RESP 18–20; O2SAT 98–100
[2017-01-06] MEDS: 0.9% Sodium Chloride 1,000 ML IV SCH ×2 (00:48→12:31)
[2017-01-06] MEDS ORDERED: Albuterol 2.5 mg/3 mL Inhalation Solution NEB PRN (01:00)
--- NOTE | 2017-01-06 02:09 | NUR ---
Arrival to unit Arrived to floor at 2315 via ED [place]. Patient is A&OX3, and pleasant. Was able to ambulate to hospital bed via SBA. Complains of pain only when he experiences bladder spasms. Continuous irrigation has been started per order and chester is draining light pink urine to gravity; only two small clots have been observed at this time. Patient denies any increased pressure or new onset of pain since irrigation has started. IV in left AC is running NS @ 100cchr. Per report med rec and admit have been completed in ER. 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 Will continue to monitor,and continue Q1 hour checks.
[2017-01-06] MEDS: HYDROmorphone 0.5 mg/0.5 mL iSecure Syringe IVPUSH PRN ×2 (02:38→05:45)
[2017-01-06] MEDS ORDERED: Thiamine Inj 100 MG, Folic Acid Inj 1 MG, Magnesium Sulfate 50% Inj 2 GM, Multivitamins... IV ONE ×5 (06:00)
[2017-01-06 07:24] LABS: BASOPHILS % (AUTO) 0.9 % (0-3); EOSINOPHILS % (AUTO) 13.2 % (0-5); MONOCYTES % (AUTO) 9.4 % (4-12); Mean Corpuscular Hemoglobin 34.7 pg (27.0-35.0); Mean Corpuscular Volume 108.2 fL (81-100); NEUTROPHILS % (AUTO) 44.1 % (40-74); Platelet Count 216 bil/L (150-400)
[2017-01-06] MEDS ORDERED: Belladonna Alk-Opium 60 mg Rectal Suppository RECTAL ONE (09:15)
--- NOTE | 2017-01-06 09:50 | CONS ---
[address] [address] CONSULTATION REPORT PATIENT: ОЛЬГА CLARK : 1935 MR#: [id number] ADMIT: 01/05/2017 JOB ID: [id number] CORRECTED REPORT: DATE OF SERVICE: 01/06/2017 RENAL CONSULTATION: HISTORY OF PRESENT ILLNESS: The patient is an 81-year-old, white male who has a history of end-stage renal disease. He was admitted to [facility] for right flank pain and gross hematuria. Renal consultation is being sought for further management of his end-stage renal disease. The patient is a quite poor historian and is only able to answer very simple questions. He apparently has a history of end-stage renal disease for about a year. The etiology of his renal failure, according to the patient, is due to hypertension. He denies a history of any prior diabetes, prostate problems, hematuria, or recurrent urinary tract infections. He normally dialyzes on Monday, and Monday at [facility]. He is followed by Dr. Khoury for his end-stage renal disease. He apparently, according to the records, has had a history of some recurrent urinary retention and suprapubic pain, cramping, and right-sided flank pain. A catheter was placed, and he was subsequently discharged several days ago. He comes back in yesterday evening for continuing problems, now with gross hematuria. A CT was obtained, and he was found to have a large, 7.6 x 10.3 x 7.6 mass within the right kidney, along with multiple renal lithiasis. Certainly, a renal cell carcinoma is extremely high on the differential. As noted above, the patient is not able to give any additional information because of his obtundation. PAST MEDICAL HISTORY: Significant for: 1. End-stage renal disease. 2. Coronary artery disease, status post PR with coronary artery bypass graft about 20 years ago, and has had several stents placed since then. 3. Hyperlipidemia. 4. Renal lithiasis. 5. Hyperlipidemia. 6. Mitral regurgitation and aortic stenosis. 7. Atrial fibrillation. 8. Congestive heart failure. 9. Hypertension with hypertensive heart disease and hypertensive nephrosclerosis. 10. Asthma. PAST SURGICAL HISTORY: Significant for coronary artery bypass graft as detailed above. He has also had several stents placed, and an AV fistula placed. He has also undergone lithotripsy in the past. There is a mention of some type of malignancy. However, I do not see anything more specific about that. SOCIAL HISTORY: According to the chart he drinks at least one shot of whiskey a day, and has a remote history of tobacco use. ALLERGIES: The patient is allergic to QUINOLONES with an unknown reaction. FAMILY HISTORY: Significant for heart failure. REVIEW OF SYSTEMS: Unobtainable. MEDICATIONS: At time of admission include aspirin, atorvastatin, calcitriol, clopidogrel, isosorbide, metoprolol, sodium bicarbonate, tamsulosin and torsemide. PHYSICAL EXAMINATION: Revealed an obese, somewhat somnolent 81-year-old, white male who was awake but markedly confused. He was oriented to self. His blood pressure is 129/77 with a pulse rate of 108. HEENT examination is remarkable for pale sclerae. Mucous membranes were dry. Neck is supple without adenopathy, thyromegaly, or jugular venous distention. Lungs showed a few scattered rhonchi but otherwise were clear. Heart was irregularly irregular. Abdomen is distended with some tympany to percussion. There was no free fluid wave appreciated. There was no tenderness, rebound, guarding, or masses. Extremities did not show any evidence of any clubbing, cyanosis, or edema. Skin turgor is good. There is no evidence of any rashes. LABORATORY EXAMINATION: This morning his white count is 5.8, hemoglobin of 10.2, hematocrit 31.8. MCV is elevated at 108. Otherwise, the remaining indices, platelet count and differential were normal. This morning his sodium is 144, potassium 5.8, chloride 105, bicarb 20, BUN and creatinine were 50 and 2.68, calcium is 9.6. Urinalysis showed a specific gravity of 1.020, pH was 7. Tests for protein, glucose, ketones, blood, nitrates and bilirubin were positive. He had too numerous to count red cells per high power field. However, no bacteria was noted. IMPRESSION: 1. Right renal mass. 2. Hematuria secondary to right renal mass. 3. End-stage renal disease. 4. Hypertension with hypertensive heart disease and hypertensive nephrosclerosis. RECOMMENDATION: I would like to get Urology's input as to the possible etiology of this mass and should you require a CT with contrast, this should not be a problem, as he already has end-stage renal disease. Once again, I would like to thank you for allowing me to participate in the care of this most pleasant but unfortunate patient. I will be following him closely with you. Corrected by ASUNCION 02/02/17 at 2:07pm DOS
[2017-01-06] MEDS: Pantoprazole 40 mg ER24 Tablet PO SCH ×3 (09:51→21:14)
--- NOTE | 2017-01-06 10:30 | PCM.PNMED ---
Subjective Date of Service Jan 06, 2017 Subjective Lot's of bladder spasms causing quite a bit of pain Exam Vital Signs Vital Sign - Last Date Time Temp Pulse Resp B/P Pulse Ox O2 Delivery O2 Flow Rate FiO2 01/06/17 09:15 37.1 111 18 126/77 99 Nasal Cannula 2.00 Intake and Output 01/05/17 01/05/17 01/06/17 Cumulative From/Thru 15:00 23:00 07:00 01/05/17 17:22 - 01/06/17 06:46 Intake Total 378 ml 378 ml Output Total 1500 ml 1500 ml Balance -1122 ml -1122 ml Intake Oral 0 ml 0 ml IV Total 378 ml 378 ml Output Urine Total 1500 ml 1500 ml # Bowel Movements 0 0 Exam General: Alert and oriented, appears in at least moderate discomfort from bladder spasm/pain Heart: Regular with 2/6 sys murmur Lungs: Clear anteriorly and laterally Abdomen: Soft but slightly distended, non-tender to light palpation, bowel tones present Extremities: No pedal edema IVs and Medications Medications Reviewed: Medications were reviewed in detail Lab and Diagnostics Result Diagram: 01/06/17 0545 01/06/17 0545 Assessment & Plan Mr. 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 He returns today for ongoing symptom management secondary to worsening of presenting symptoms. CT KUB on admission revealed a large heterogeneous enhancing of his right renal mass, suggestive of renal cell carcinoma with hemorrhage versus large hemorrhagic cyst. He was admitted for evaluation and treatment of his symptoms and the CT findings. Hematuria, urinary retention, and suprapubic tenderness, acute, present on admission. Under evaluation - urology has seen patient according to the nurse, awaiting note, but apparently no procedure planned - Patient has Lake in place - Holding anticoagulation at this time Right renal mass, chronic - Seen on CT on admission, with findings suggestive of active bleeding - Urology consult as noted above Bladder spasms, acute, present on admission. Ongoing - Likely secondary to above - Valium proved to be too effective, and compromised his mentation and respiratory status; avoid - Patient appeared to tolerate IV Dilaudid while in the emergency department, this was continued prn pain and spasm, will increase dose and freq - Preliminary home med list indicates oxycodone - Home urinary medications indicate hyoscyamine for bladder spasm, continued ESRD on HD, chronic. Presumed stable - Right fistula utilized; HD on , , - Garment Manufacturer: Dr. Khoury - Nephrology consult kamaljit Dr Strange done - Continued renal medications that were on reconciliation at time of admission: Renvela Coronary artery disease status post CABG, stent placement, chronic. Presumed stable - Continue statin, beta patricia History of AV re-entrant tachycardia s/p ablation, chronic. Presumed stable - Monitor with telemetry - We will need to verify medications, as Imdur was prescribed at recent admission 04/2016, but does not appear on current medication list BPH, chronic. Presumed stable - Resume medications when reconciliation completed Asthma, chronic. Presumed stable - Accu nebs as needed History of alcohol use, chronic. Presumed stable - Reports of whiskey daily; unable to accurately assess secondary to Valium effects - Monitor for signs and symptoms of withdrawal - Stable at this time - Banana bag given as precaution GERD, chronic. Presumed stable - Resume home PPI Goals of care - Patient stated that he wanted to "try" if anything were to happen to him but he does not wish for prolonged care - Encourage completion of POLST when patient is of clear mind Plan to double check medication list in the morning: as per admit physician there is some discrepancy from previous discharge 04/2016 with medication list currently on file; patient was not of sound mind to recall medications at time of admission PRN: Fever/bowel/pain/nausea DVT: SCDs only at this time secondary to possibility of active bleeding renal mass GI: PPI Diet: Heart healthy CODE STATUS: Full code Patient status: Due to severity of presenting symptoms, risk of adverse events, and likely course of care, anticipated length of stay exceeds 2 midnight; patient admitted as inpatient status GI Prophylaxis: Proton Pump Inhibitor VTE Prophylaxis: SCDs VTE Mechanical Devices: Intermittant Pneumatic CD Resuscitation Status: CPR: Attempt Resuscitation Olga Lyn MD Jan 06, 2017 10:30
--- NOTE | 2017-01-06 11:46 | PCM.CONSUR ---
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 Catheter placed in ER and pt felt relief according to the ER notes. Urine was bloody. He got pain medications and felt better and was told to see Urology in am. Was seen by nursing (surgeons in the OR) on 01/04/17 and catheter irrigated out, returned to clinic 01/05/17 with c/o pain, chester was irrigated, felt to be draining fine. Pt had pain complaints and noted Hematemesis and was sent on the ER where he was admitted. CT as below noted few small non-obstructing stones and Rt renal mass 7 x 7 x 10cm in size, heterogeneous. On exam 01/06/17 in the hospital his chester catheter was draining Clear, Light Yellow urine. His abdominal exam was benign- protuberant, without pain with deep palpation R or L. No Back pain R/L with firm palpation. When asked to localize his discomfort he pointed to SP region only. He was holding an emesis bag, but denied nausea, anorexia or emesis. Nurse stated he had not vomited. He is a poor historian Review of older imaging shows known Rt renal mass (documented as ca 5x5cm) solid mass as of US done during March 2016 hospitalization for multiple medical issues. Pt was to f/u with d/c instructions to f/u with urology. He did not follow up with urology, only with nephrology and returned to Urology only in December 2016 with c/o gross hematuria. There are several documented phone calls in [facility] urology chart documenting attempts to set up f/u visit for this patient after his March 2016 hospitalization and he refused, saying he did not feel like he needed to see urology because he was seeing Nephrology. Mass (smaller at the time) had been suspected with outside CT from 2013 at time of problems with renal/ureteral stones. His f/u US and other imaging did not confirm presence of solid renal mass in setting of mult cysts. He has/had long h/o stones and interventions for stones with multiple urologists here and elsewhere through the years. Abdominal Imaging visible from [place] [facility] since 2013: 01/05/17 NON-CON CT ABD/PELVIS (this ER visit) 7 x 10 x 7cm heterogeneous mass Rt kidney. No perinephric fluid collection, no evidence of acute inflammation/ bleeding, no hydroneposis. +smll nonobstructing stones 2-4mm in size Rt and L. Bladder decompressed nicely with chester cateter. No soft tissue density in bladder to suggest mass or blood clot. 04/04/16: RENAL US during unrelated hospitalization at [facility]: Solid appearing renal mass Rt side 5cm x 5cm x 5cm 07/02/14 RENAL U/S : no evidence of R renal mass, no renal calculi, no hydronephrosis, B/L renal cysts (several on R (largest 5.9cm in R mid pole and 4.1cm in R upper pole), simple L renal cysts (3.0cm and 1.5cm L mid pole)), L ureteral stent in place, 06/26/14 NON-CON CT ABD/PELVIS: L ureteral stent in good position, improved L hydronephrosis (mild), B/L renal cysts (largest on L: 3.2cm L mid pole, largest on R: 7cm L lower pole), unchanged 5.5cm area of mildly increased density in R renal pelvis --- 05/26/14 NON-CON CT ABD/PELVIS : moderate L hydroureteronephrosis, 2mm L mid ureteral calculus, 5.5cm R renal pelvis high density (possible hemorrhage vs. debris vs. mass), B/L renal cysts (largest on R 6.5cm R lower pole, largest on L 3.1cm L mid pole) Reason for Consultation Asked to evaluate chronically ill 81 y/o with (previously known but untreated) Rt renal mass, non-obstructing nephrolithiasis, history of hematuria, and SP discomfort. Allergy Allergies: Coded Allergies: Quinolones (Verified Allergy, Severe, destroyed achilles tendons and calf muscle, 01/05/17) ciprofloxacin (Verified Allergy, Intermediate, 01/05/17) Medications Albuterol HFA (Proair HFA) 8.5 Gm Hfa.aer.ad 2 PUFFS INHALATION Q4H PRN PRN For Shortness of Breath (Reported) Last Taken: 2 PUFFS on Unknown Date & Time Aspirin (Aspirin) 81 Mg Tablet 81 MG PO QAM (Reported) Last Taken: 81 MG on 01/03/17 0900 Atorvastatin Calcium (Atorvastatin Calcium ) 80 Mg Tablet 80 MG PO HS (Reported) Last Taken: 80 MG on 01/03/17 2100 Calcitriol (Rocaltrol) 0.25 Mcg Capsule 0.5 MCG PO QAM (Reported) Last Taken: 0.5 MCG on 01/03/17 0900 Cholecalciferol (Vitamin D3) (Vitamin D3 ) 2,000 Unit Tablet 2,000 UNIT PO QAM (Reported) Last Taken: 2,000 UNITS on 01/03/17 0900 Clopidogrel Bisulfate (Plavix) 75 Mg Tablet 75 MG PO QAM (Reported) Last Taken: 75 MG on 01/03/17 0900 Diltiazem (Diltiazem) 30 Mg Tablet 30 MG PO QID PRN PRN palpitations Prescribed by: GIUSEPPE HERNANDEZ MD Last Taken: 30 MG on Unknown Date & Time Finasteride (Finasteride) 5 Mg Tablet 5 MG PO QAM (Reported) Last Taken: 5 MG on 01/03/17 0900 Fluticasone Propionate (Fluticasone Propionate Nasal) 16 Gm [place].susp 1 SPRAY NASAL DAILY PRN PRN For Congestion ( Reported) Last Taken: 1 SPRAY on Unknown Date & Time Hyoscyamine (Hyoscyamine) 0.125 Mg Tablet 0.125 MG PO Q4H PRN PRN BLADDER SPASMS (Reported) Last Taken: 0.125 MCG on Unknown Date & Time Lysine (Lysine) 1,000 Mg Tablet 1,000 MG PO QAM (Reported) Last Taken: 1,000 MG on 01/03/17 0900 Metoprolol Tartrate (Metoprolol Tartrate) 25 Mg Tablet 25 MG PO QAM (Reported) Last Taken: 25 MG on 01/03/17 0900 Nitroglycerin SL (Nitrostat) 0.4 Mg Tablet 0.4 MG SL Q5MIN PRN PRN For Chest Pain Prescribed by: EDISON CALDERON MD Last Taken: 0.4 MG on Unknown Date & Time Omeprazole (Omeprazole) 20 Mg Capsule.dr 20 MG PO QAM (Reported) Last Taken: 20 MG on 01/03/17 0900 Oxycodone HCl/Acetaminophen (Endocet 10- 325 mg Tablet) 1 Each Tablet 1-2 EACH PO Q4H PRN PRN For Pain (Reported) Last Taken: 1 TABLET on 01/05/17 Sennosides (Senna) 8.6 Mg Tablet 8.6 MG PO QAM (Reported) Last Taken: 8.6 MG on 01/03/17 0900 Sevelamer Carbonate (Renvela) 800 Mg Tablet 800 MG PO TIDWM (Reported) Last Taken: 800 mg on 01/03/17 Sodium Bicarbonate (Sodium Bicarbonate) 325 Mg Tablet 650 MG PO TID (Reported) Last Taken: Unknown Dose on Unknown Date & Time Tamsulosin ER (Tamsulosin ER ) 0.4 Mg Cap.er.24h 0.4 MG PO HS (Reported) Last Taken: 0.4 MG on 01/03/17 2100 Torsemide (Torsemide) 20 Mg Tablet 40 MG PO QAM (Reported) Last Taken: 40 MG on 01/03/17 0900 Triamcinolone Acet (Triamcinolone Acetonide Ointment) 1 Applic/0.25 Gm Oint 1 APPLIC TOP BID PRN PRN RASH ( Reported) Last Taken: 1 APPLICATION on Unknown Date & Time Discontinued Medications Isosorbide MN ER (Isosorbide MN ER) 60 Mg Tab.er.24h 60 MG PO DAILY (Reported) Metoprolol Tartrate (Metoprolol Tartrate) 75 Mg Tablet 75 MG PO BID Prescribed by: NATALEE HERNANDEZ DO Sodium Bicarbonate (Sodium Bicarbonate) 325 Mg Tablet 2 TAB PO TID (Reported) oxyCODONE (oxyCODONE) 5 Mg Tablet 1 TAB PO Q4H PRN PRN For Pain (Reported) Past Surgical History Surgeries: Yes (heart bypass 96,other stone removals, AVF placement in R arm) Patient/Family Past Surgical: Positive for:: Accept Blood Products?, Denies:: Anesthesia Reactions, Blood Transfuse Reaction, Blood Transfusions, Malignant Hyperthermia Social History Hx Alcohol Use: Yes Alcoholic Drinks Per Day: 1 shot whiskey daily Hx Substance Use: No Hx Tobacco Use: Yes (quit) PMH HEENT History History of ENT Problems?: Yes HEENT History: Positive for:: Abnormal Airway Cataracts (had cataracts removed in both eyes) Difficult Intubation Denies:: Dysphagia Sinus Problem Cardiovascular History History of Heart Problems?: Yes Cardiovascular History: Positive for:: Chest Pain (95) Congestive Heart Failure Hypertension (the patient has hypertension that responsible for his end-stage renal disea) Irregular Heartbeat (" heart racing 4 times this month",SVT) Denies:: AICD Abdominal Aortic Aneurism Atrial Fibrillation Edema Heart Murmur Pacemaker Rheumatic Fever Thrombophlebitis Respiratory History of Respiratory Problem: Yes Respiratory History: Positive for:: Asthma Chest Surgery (bypass 96) Denies:: COPD Cough Dyspnea Emphysema Hemoptysis Oxygen Administration Pneumonia Pulmonary Embolism Tuberculosis Use of C-PAP Machine Neurological History Hx Neurologic Problems?: Yes Neurological History: Positive for:: Dizziness (VERTIGO) Denies:: Alzheimer's Disease CVA Dementia Headaches Multiple Sclerosis Parkinson's Disease Seizures Gastrointestinal History HX of GI Problems?: No Gastrointestinal History: Positive for:: Heartburn (R/T EATING AFTER 6PM) Denies:: Cirrhosis Diverticulitis Gastroesphageal Reflux Gastrointestinal Bleeding Hepatitis Hiatal Hernia Rectal Bleeding Genitourinary History Hx of Gu Problems?: Yes Genitourinary History: Positive for: HX of Hemodialysis (, , mon) Kidney Stones (2014, has had several times) Denies: Urinary Tract Infection Other Pertinent History?: R fistula Female/Male History Reproductive History Male: Positive for: Prostate Problems (BPH) Denies: Scrotal Mass Musculoskeletal History Hx Musculoskeletal Problems?: No Musculoskeletal History: Denies:: Back Injury Joint Replacement Musculoskeletal Trauma Psycho Social History Hx of Psycho/Social Problems?: Yes Psycho Social History: Positive for:: Hx Depression (since my passed 2013 ) Denies:: Anxiety Bipolar Disorder Suicide Attempt Other History Hx Any Other Health Problems?: Yes Other History: Positive for:: Cancer (Skin cancer-removed when I was around 50 ) Hospitalization (KIDNEY STONE PAIN, CABG) Denies:: Endocrine Disease Thyroid Disease Diabetes: No Social History Hx Alcohol Use: YesAlcoholic Drinks Per Day: 1 shot whiskey daily Hx Substance Use: NoHx Tobacco Use: Yes (quit) Smoking Status: Former Smoker (quit more than 40 years ago, 1 pack per day 15 years) Objective Exam Objective As above, supine NAD holding emesis basin but denying nausea, emesis, or anorexia. Abdominal exam benign- not TTP slow deep palpation Rt/Left or flank Rt or left, c/o only SP discomfort confused historian Vital Signs & I/O Vital Sign- Last 8 Hours Date Time Temp Pulse Resp B/P Pulse Ox O2 Delivery O2 Flow Rate FiO2 01/06/17 09:15 37.1 111 18 126/77 99 Nasal Cannula 2.00 01/06/17 08:50 Supplement Oxygen 01/06/17 08:50 Supplement Oxygen 01/06/17 08:00 111 01/06/17 04:41 94 01/06/17 04:21 36.3 108 20 129/77 99 Nasal Cannula 3.00 Intake and Output- Last 8 Hour 01/06/17 Cumulative From/Thru 07:00 01/05/17 17:22 - 01/06/17 06:46 Intake Total 378 ml 378 ml Output Total 1500 ml 1500 ml Balance -1122 ml -1122 ml Intake Oral 0 ml 0 ml IV Total 378 ml 378 ml Output Urine Total 1500 ml 1500 ml # Bowel Movements 0 0 Lab & Micro Results Laboratory Tests Test 01/05/17 19:10 01/05/17 21:00 01/05/17 22:15 01/06/17 05:45 White Blood Count 8.3th/mm3 (3.8-10.1) 5.8th/mm3 (3.8-10.1) Red Blood Count 3.34mil/mm3 (4.40-5.80) 2.94mil/mm3 (4.40-5.80) Hemoglobin 11.3g/dL (13.8-17.2) 10.2g/dL (13.8-17.2) Hematocrit 35.7% (41.0-50.0) 31.8% (41.0-50.0) Mean Corpuscular Volume 106.9fL (81-100) 108.2fL (81-100) Mean Corpuscular Hemoglobin 33.8pg (27.0-35.0) 34.7pg (27.0-35.0) Mean Corpuscular Hemoglobin Concent 31.7% (32.0-37.0) 32.1% (32.0-37.0) Red Cell Distribution Width 13.8% (12.3-15.4) 13.8% (12.3-15.4) Platelet Count 235bil/L (150-400) 216bil/L (150-400) Neutrophils (%) (Auto) 56.8% (40-74) 44.1% (40-74) Lymphocytes (%) (Auto) 25.2% (14-46) 32.2% (14-46) Monocytes (%) (Auto) 8.1% (4-12) 9.4% (4-12) Eosinophils (%) (Auto) 9.1% (0-5) 13.2% (0-5) Basophils (%) (Auto) 0.7% (0-3) 0.9% (0-3) Prothrombin Time 9.8sec (8.1-12.5) Prothromb Time International Ratio 0.92ratio Sodium Level 140mEq/L (134-144) 144mEq/L (134-144) Potassium Level 4.5mEq/L (3.5-5.2) 5.0mEq/L (3.5-5.2) Chloride Level 98mEq/L (97-108) 105mEq/L (97-108) Carbon Dioxide Level 21mmol/L (18-29) 20mmol/L (18-29) Blood Urea Nitrogen 48mg/dL (8-27) 50mg/dL (8-27) Creatinine 7.56mg/dL (0.76-1.27) 7.68mg/dL (0.76-1.27) Estimat Glomerular Filtration Rate 7mL/min (>59) 7mL/min (>59) Glucose Level 107mg/dL (60-99) 81mg/dL (60-99) Calcium Level 10.4mg/dL (8.5-10.1) 9.6mg/dL (8.5-10.1) Total Bilirubin 0.3mg/dL (0.0-1.2) Aspartate Amino Transf (AST/SGOT) 14U/L (0-50) Alanine Aminotransferase (ALT/SGPT) 15U/L (0-44) Alkaline Phosphatase 70U/L (25-160) Total Protein 7.4g/dL (6.4-8.4) Albumin 4.3g/dL (3.4-5.0) Hold [place] Top Tube Received (Received) Hold Purple Top Tube Received (Received) Received (Received) Hold [place] Top Tube Received (Received) Received (Received) Urine Color Red (YELLOW) Urine Appearance Cloudy (CLEAR,HAZY) Urine pH 7.0 (5.0-8.0) Urine Specific [place] 1.020 (1.003-1.035) Urine Protein >300mg/dL (NEG,TRACE) Urine Glucose (UA) 100mg/dL (NEGATIVE) Urine Ketones Tracemg/dL (NEGATIVE) Urine Occult Blood Large (NEGATIVE) Urine Nitrite Positive (NEGATIVE) Urine Bilirubin Small (NEGATIVE) Urine Ictotest Positive (Negative) Urine Urobilinogen Normalmg/dL (NORMAL) Urine Leukocyte Esterase Small (NEGATIVE) Urine RBC Packed/hpf (0-2) Urine WBC 0-5/hpf (0-5) Urine Epithelial Cells Occasional/hpf (NONE-MOD) Urine Crystals None seen (NONE SEEN) Urine Bacteria None/hpf (NONE-FEW) Urine Hyaline Casts None/lpf (NONE) Urine Granular Casts None seen (NONE SEEN) Urine Waxy Casts None seen (NONE SEEN) Urine Red Blood Cell Casts None seen (NONE SEEN) Urine White Blood Cell Casts None seen (NONE SEEN) Urine Mucus None seen (None Seen) Urine Trichomonas None seen (NONE SEEN) Urine Yeast None (NONE SEEN) Urinalysis Comment Urine Culture Reflexed Indicated Microbiology 01/05/17 Urine Culture - Preliminary, Resulted No growth to date Result Diagram: 01/06/17 0545 01/06/17 0545 Review of Systems: Constitutional: Negative, except as otherwise mentioned in the history above. Ophthalmologic: Negative, except as otherwise mentioned in the history above. Cardiovascular: Negative, except as otherwise mentioned in the history above. Respiratory: Negative, except as otherwise mentioned in the history above. Gastrointestinal: Negative, except as otherwise mentioned in the history above. Genitourinary: Negative, except as otherwise mentioned in the history above. Musculoskeletal: Negative, except as otherwise mentioned in the history above. Neurological: Negative, except as otherwise mentioned in the history above. Psychiatric: Negative, except as otherwise mentioned in the history above. Hematologic/Lymphatic: Negative, except as otherwise mentioned in the history above. Allergic/Immunologic: Negative, except as otherwise mentioned in the history above. H&P Surgical Exam Exam General: Alert, Cooperative, No Acute Distress, Other (poor historian, no distress, holding emesis bag but denying nausea/emesis or anorexia) HEENT: Other (ncat, poor dentition, dry mouth, ) Neck: Exceptions (midline trachea, no scars, moves reasonably wlell) Respiratory: Clear to Auscultation (no audible ronchi or wheezes, no inc wob, no cough, no ronchi ) Cardiac: Other (warm ext, some dep edema, RR, no JVD supine) Abdomen: Other (protuberant, non-acute, no tenderness with slow deep palpation R or L upper or lower, c/o SP discomfort no mass palpable anywhere. ) Breasts: Not Indicated Musculoskeletal: No gross limb defects, BETS Additional Information Clear speech, poor memory unfocused historian, symmetric face, grossly symmetric movements grossly nl ext genitalia, chester in place with clear lt yellow urine Assessment & Plan Assessment Pt is an 81 y/o gentleman admitted with SP pain, (previously known) Rt renal mass 7cm x 10x 7cm, and history of hematuria in setting of multiple medical issues including ESRD on HD , hyperlipidemia, hypertension, CAD s/p OR, nephrolithiasis, GERD, hepatitis C, and EtOH abuse Present illness, pt had most recently not been seen in urology clinic in 2 years since December 2014 when he went to the ER 01/03/2017 via EMS unable to urinate and had a catheter placed, also complaining of pain and with hematuria on plavix, known h/o stones. Catheter placed in ER and pt felt relief according to the ER notes. Urine was bloody. He got pain medications and felt better and was told to see Urology in am. Was seen by nursing (surgeons in the OR) on 01/04/17 and catheter irrigated out, returned to clinic 01/05/17 with c/o pain, chester was irrigated, felt to be draining fine. Pt had pain complaints and noted Hematemesis and was sent on the ER where he was admitted. CT as below noted few small non-obstructing stones and Rt renal mass 7 x 7 x 10cm in size, heterogeneous. On exam 01/06/17 in the hospital his chester catheter was draining Clear, Light Yellow urine. His abdominal exam was benign- protuberant, without pain with deep palpation R or L. No Back pain R/L with firm palpation. When asked to localize his discomfort he pointed to SP region only. He was holding an emesis bag, but denied nausea, anorexia or emesis. Nurse stated he had not vomited. He is a poor historian Review of older imaging shows known Rt renal mass (documented as ca 5x5cm) solid mass as of US done during March 2016 hospitalization for multiple medical issues. Pt was to f/u with d/c instructions to f/u with urology. He did not follow up with urology, only with nephrology and returned to Urology only in December 2016 with c/o gross hematuria. There are several documented phone calls in [facility] urology chart documenting attempts to set up f/u visit for this patient after his March 2016 hospitalization and he refused, saying he did not feel like he needed to see urology because he was seeing Nephrology. Mass (smaller at the time) had been suspected with outside CT from 2013 at time of problems with renal/ureteral stones. His f/u US and other imaging did not confirm presence of solid renal mass in setting of mult cysts. He has/had long h/o stones and interventions for stones with multiple urologists here and elsewhere through the years. Abdominal Imaging visible from [place] [facility] since 2013: 01/05/17 NON-CON CT ABD/PELVIS (this ER visit) 7 x 10 x 7cm heterogeneous mass Rt kidney. No perinephric fluid collection, no evidence of acute inflammation/ bleeding, no hydroneposis. +smll nonobstructing stones 2-4mm in size Rt and L. Bladder decompressed nicely with chester cateter. No soft tissue density in bladder to suggest mass or blood clot. 04/04/16: RENAL US during unrelated hospitalization at [facility]: Solid appearing renal mass Rt side 5cm x 5cm x 5cm 07/02/14 RENAL U/S : no evidence of R renal mass, no renal calculi, no hydronephrosis, B/L renal cysts (several on R (largest 5.9cm in R mid pole and 4.1cm in R upper pole), simple L renal cysts (3.0cm and 1.5cm L mid pole)), L ureteral stent in place, 06/26/14 NON-CON CT ABD/PELVIS: L ureteral stent in good position, improved L hydronephrosis (mild), B/L renal cysts (largest on L: 3.2cm L mid pole, largest on R: 7cm L lower pole), unchanged 5.5cm area of mildly increased density in R renal pelvis --- 05/26/14 NON-CON CT ABD/PELVIS : moderate L hydroureteronephrosis, 2mm L mid ureteral calculus, 5.5cm R renal pelvis high density (possible hemorrhage vs. debris vs. mass), B/L renal cysts (largest on R 6.5cm R lower pole, largest on L 3.1cm L mid pole) 1 Known Rt renal mass, slowly increasing in size, most likely RCC in an elderly man with multiple medical issues including ETOH abuse and possible recent hematemesis on HD. Poor surgical candidate. 2 Hematuria quite possibly related to Rt renal mass, though other causes are not out of the question from benign to malignant. No large bladder masses are seen, no moving stones seen, no obvious inflammatory/infectious cause. Gross hematuria resolved at present. 3 Very poor surgical candidate VTE Prophylaxis: SCDs VTE Mechanical Devices: Intermittant Pneumatic CD Plan: 1 Medical management of other issues including evaluation for possible h/o hematemesis recently. 2 As a quite poor surgical candidate, Embolization by IR may be his best option to treat his Rt renal mass, though if he were medically optimized nephrectomy could potentially be an option. 3 Chester catheter- may keep if needed for fluid management/resuscitation , or remove as his urine is running clear now. 4 Offered him B&O suppositories for his SP pain/bladder spasms in setting of freely draining urine. He may be more comfortable without catheter. Resuscitation Status: CPR: Attempt Resuscitation Jessica Eubanks MD Jan 06, 2017 11:46
[2017-01-06] MEDS: HYDROmorphone 1 mg/mL Inj IVPUSH PRN ×2 (14:23→15:24)
[2017-01-06] MEDS: Ondansetron 2 mg/mL 2 mL Inj IVPUSH PRN (15:40)
[2017-01-06] MEDS ORDERED: Belladonna Alk-Opium 60 mg Rectal Suppository RECTAL PRN (16:30)
[2017-01-06 17:17] LABS: Mean Corpuscular Hemoglobin 33.7 pg (27.0-35.0); Mean Corpuscular Volume 108.6 fL (81-100)
--- NOTE | 2017-01-06 19:13 | NUR ---
CBI/True Urine Pt with CBI running at minimal gtt rate. No signs of clots, urine clear. Pt c/o bladder spasms. At ~1500, RN assisting and stated hand flushed chester and did not have any blood clot return, urine remains clear. Pt chester draining to bag and continues to leak from around catheter. Unable to determine true urine output. Per documentation only 150cc output via chester, but this does not account for lost urine on clothing/paddings. Care continues.
[2017-01-07] VITALS (8 sets, daily range): BP systolic 113–130; BP diastolic 68–73; PULSE 93–135; RESP 16–20; O2SAT 91–99
[2017-01-07] MEDS: oxyCODONE-Acetamin 10-325 mg Tablet PO PRN ×4 (00:41→22:18)
[2017-01-07] MEDS: 0.9% Sodium Chloride 1,000 ML IV SCH ×4 (00:44→16:09)
--- NOTE | 2017-01-07 02:51 | NUR ---
PAIN/; Pt c/o frequent bladder spasms. B and O suppository given- didn't seem to help much. Restless, forgetful at times. Didn't want to lay down. Wanted to stand or sit on edge of bed. Reminded pt not to play with Gu roller clamp. Small loose bm per bathroom. Slightly unsteady on his feet.- Many tubes to deal with. Sitter requested. Nigel, "sitter" here at 2300. Percocet effective for spasms for about 2 hours. (Dozed) Symax given. Urine clear to water carli color. No clots seen.
--- NOTE | 2017-01-07 04:40 | NUR ---
/PAIN urine clear light luis. Irrigant running. Pt bearing down with each bladder spasm- encouraging pt to breathe thru his mouth. Percocet 10mg given. BOOM CRANE OPERATOR; called and reported heart rate increases up to 140's. (Has been during spasms.)
--- NOTE | 2017-01-07 05:21 | NUR ---
PAIN; sleeping, heart rate 101.
[2017-01-07 07:42] LABS: Mean Corpuscular Hemoglobin 34.4 pg (27.0-35.0)
--- NOTE | 2017-01-07 08:15 | PCM.PNMED ---
Subjective Date of Service Jan 07, 2017 Subjective Still painful bladder spasms Exam Vital Signs Vital Sign - Last Date Time Temp Pulse Resp B/P Pulse Ox O2 Delivery O2 Flow Rate FiO2 01/07/17 05:38 103 01/07/17 04:55 37.1 20 117/69 99 Nasal Cannula 3.00 Intake and Output 01/06/17 01/06/17 01/07/17 Cumulative From/Thru 15:00 23:00 07:00 01/05/17 17:22 - 01/07/17 06:10 Intake Total 1456 ml 1406 ml 3240 ml Output Total 250 ml 2200 ml 3950 ml Balance 1206 ml -794 ml -710 ml Intake Oral 600 ml 600 ml IV Total 1456 ml 806 ml 2640 ml Output Urine Total 150 ml 2200 ml 3850 ml Emesis 100 ml 100 ml # Bowel Movements 1 1 Exam General: Alert, oriented to place, month & year, no acute distress Heart: Regular with sys murmur, on telemetry sinus tach mostly 100-110, occasionally to the 140s Lungs: Clear Abdomen: Soft, bowel tones present, moderate suprapubic tenderness Extremities: No pedal edema IVs and Medications Medications Reviewed: Medications were reviewed in detail Lab and Diagnostics Result Diagram: 01/07/17 0725 01/06/17 0545 Assessment & Plan Mr. 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 He returns today for ongoing symptom management secondary to worsening of presenting symptoms. CT KUB on admission revealed a large heterogeneous enhancing of his right renal mass, suggestive of renal cell carcinoma with hemorrhage versus large hemorrhagic cyst. He was admitted for evaluation and treatment of his symptoms and the CT findings. Hematuria, urinary retention, and suprapubic tenderness, acute, present on admission. - urine light yellow this am - urology saw him yesterday and said chester could be removed unless needed for fluid monitoring so will DC - Hgb stable, 10.3 this am - ASA and plavix held but will resume today Right renal mass, chronic - Seen on CT on admission, with findings suggestive of active bleeding - Urology consult 01/06 impression and recommendations: Known Rt renal mass, slowly increasing in size, most likely RCC in an elderly man with multiple medical issues including ETOH abuse and possible recent hematemesis on HD. Poor surgical candidate. Hematuria quite possibly related to Rt renal mass, though other causes are not out of the question from benign to malignant. No large bladder masses are seen, no moving stones seen, no obvious inflammatory/infectious cause. Gross hematuria resolved at present. Very poor surgical candidate Plan: As a quite poor surgical candidate, Embolization by IR may be his best option to treat his Rt renal mass, though if he were medically optimized nephrectomy could potentially be an option. Bladder spasms, acute, present on admission. Ongoing - Likely secondary to above - urine culture is negative - Valium proved to be too effective, and compromised his mentation and respiratory status; avoid - Patient appeared to tolerate IV Dilaudid while in the emergency department, this was continued prn pain and spasm, dose and freq increased 01/06 due to continued pain from spasms - Home urinary medications indicate hyoscyamine for bladder spasm, continued Possible Hematemesis noted by nurse yesterday - Hgb stable - gastroccult ordered, no results presumably because no further emesis - already on PPI (here and as outpt) ESRD on HD, chronic. Presumed stable - Right fistula utilized; HD on , , - Orthotic Fitter: Dr. Khoury - Nephrology consult by Dr Strange done - Continued renal medications that were on reconciliation at time of admission: Renvela Coronary artery disease status post CABG, stent placement, chronic. Presumed stable - Continue statin, beta patricia - Imdur was prescribed at recent admission 04/2016, but does not appear on current medication list - as noted above will resume asa and plavix today History of AV re-entrant tachycardia s/p ablation, chronic. Presumed stable - Monitor with telemetry - ST 100-110's, occl 140's. currently Metop 25 qd, will increase to BID, appears in past (or prior to admission, can't tell which) was on 75 bid BPH, chronic. Presumed stable - Continue same medications Asthma, chronic. Presumed stable - Accu nebs as needed History of alcohol use, chronic. Presumed stable - Reports of whiskey daily; unable to accurately assess secondary to Valium effects - Monitor for signs and symptoms of withdrawal - Stable at this time - Banana bag given as precaution GERD, chronic. Presumed stable - Resume home PPI Goals of care - Patient stated that he wanted to "try" if anything were to happen to him but he does not wish for prolonged care - Encourage completion of POLST when patient is of clear mind PRN: Fever/bowel/pain/nausea DVT: SCDs only at this time secondary to possibility of active bleeding renal mass GI: PPI Diet: Heart healthy CODE STATUS: Full code Patient status: Due to severity of presenting symptoms, risk of adverse events, and likely course of care, anticipated length of stay exceeds 2 midnight; patient admitted as inpatient status. Hematuria has cleared so appears goal is home when symptomatically improved. Urology mentioned IR embolization of renal mass but not sure if that would be during this admission or as outpatient. GI Prophylaxis: Proton Pump Inhibitor VTE Prophylaxis: SCDs VTE Mechanical Devices: Intermittant Pneumatic CD Resuscitation Status: CPR: Attempt Resuscitation Olga Lyn MD Jan 07, 2017 08:15
[2017-01-07] MEDS: Pantoprazole 40 mg ER24 Tablet PO SCH ×2 (08:57→22:18)
[2017-01-07] MEDS ORDERED: Lidocaine Topical 2% 30 mL Jelly ONE (09:18)
--- NOTE | 2017-01-07 09:30 | NUR ---
Chester Orders to dc chester, SN2 and instructor to dc 24fr 3way catheter. After deflating balloon, were met with resistance just before cath tip. Tight and painful to pt. This RN and permastone applicator also attempted to remove but uncomfortable with pulling any further. Cook page to Urology - MD present and removed catheter. Minimal bloody output noted post removal. Chucks placed and receiving RN on MOC made aware prior to pt transfer. Care continues.
--- NOTE | 2017-01-07 09:44 | PCM.PNSURG ---
Subjective Visit Information: Reason for Visit Severe Abd Pain, Hemorrhagic Mass Right Kidney Surgery/Surgery Date Post-Op Day # Date of Admission: Jan 05, 2017 at 21:27 Hospital Day # Objective Vital Sign- Last 8 Hours Date Time Temp Pulse Resp B/P Pulse Ox O2 Delivery O2 Flow Rate FiO2 01/07/17 07:38 110 01/07/17 05:38 103 01/07/17 04:55 37.1 101 20 117/69 99 Nasal Cannula 3.00 Intake and Output- Last 8 Hour 01/07/17 Cumulative From/Thru 07:00 01/05/17 17:22 - 01/07/17 06:10 Intake Total 1406 ml 3240 ml Output Total 2200 ml 3950 ml Balance -794 ml -710 ml Intake Oral 600 ml 600 ml IV Total 806 ml 2640 ml Output Urine Total 2200 ml 3850 ml Emesis 100 ml # Bowel Movements 1 1 Result Diagram: 01/07/17 0725 01/06/17 0545 Assessment & Plan Plan Contacted by nursing for chester problems - Chester was properly deflated prior to attempting removal, though it was caught at the distal penile urethra/fossa navicularis - I ensured the balloon was completely deflated, which it was. Chester was removed without further incident or apparent bleeding. VTE Prophylaxis: SCDs Resuscitation Status: CPR: Attempt Resuscitation Heather Pimentel MD Jan 07, 2017 09:44
--- NOTE | 2017-01-07 09:45 | NUR ---
Off Unit Pt off unit to [facility] room 244 for dialysis. Primitivo&ESTEPHANIA Chawla, on Tele - tech aware of transfer, Brought up via bed, Chart with pt, Stable Addendum: 01/07/17 at 1709 by KORIN GRAYSON RN Returned to [facility]26 at ~1530 from dialysis via bed; Report received from Gregoria ESPINOZA prior to pt return. Pt sleepy, but arousable with repeated stimuli. IV flushed and infusing. Chart returned. Telemetry in place.
--- NOTE | 2017-01-07 11:32 | PCM.PNNEPH ---
Subjective Date of Service Jan 07, 2017 Subjective The patient is about the same today. He denies any difficulty in breathing or chest pain. The patient was seen in dialysis. Exam Vital Signs Vital Sign - Last Date Time Temp Pulse Resp B/P Pulse Ox O2 Delivery O2 Flow Rate FiO2 01/07/17 09:00 Supplement Oxygen 01/07/17 07:38 110 01/07/17 04:55 37.1 20 117/69 99 3.00 Intake and Output 01/06/17 01/06/17 01/07/17 Cumulative From/Thru 15:00 23:00 07:00 01/05/17 17:22 - 01/07/17 06:10 Intake Total 1456 ml 1406 ml 3240 ml Output Total 250 ml 2200 ml 3950 ml Balance 1206 ml -794 ml -710 ml Intake Oral 600 ml 600 ml IV Total 1456 ml 806 ml 2640 ml Output Urine Total 150 ml 2200 ml 3850 ml Emesis 100 ml 100 ml # Bowel Movements 1 1 Exam Neck his neck is supple without adenopathy, thyromegaly, or jugular venous distention. Clear to auscultation though somewhat diminished due to poor inspiratory effort. Heart sounds were present and regular although distant. Abdomen is soft without any tenderness or rebound guarding masses or hepatosplenomegaly. Extremities show any evidence of any clubbing cyanosis or edema. Lab and Diagnostics Result Diagram: 01/07/17 0725 01/06/17 0545 Plan Impression Impression #1 end-stage renal disease dialysis dependent #2 right renal mass with hematuria Recommendations #1 the patient's P dialyze today for 4 hours on a 2 potassium bath, 450 blood flow, and no heparin. We will also try to take 2 L of fluid off. I will await further recommendations from neurology. Valdo Strange DO Jan 07, 2017 11:32
--- NOTE | 2017-01-07 12:40 | NUR ---
Afib autobody technician notified production welding supervisor of change in rhythm. Currently Afib 120-150s. SBP 100s to 110s. Denies chest discomfort, shortness of breath. Dr. Lyn notified of above event.
--- NOTE | 2017-01-07 14:35 | NUR ---
Dialysis note: 4 hrs tx 2000 ml net UF Right upper arm fistula Pls see DTR for VS details Qb 425-450 No heparin given O2 @ 2L via NC on during tx Tolerated tx, slept at intervals Fistula needle sites clotted w/in 10 min Stable condition at end of tx Report given to Gregoria ESPINOZA
--- NOTE | 2017-01-07 15:02 | NUR ---
Return to room 1026 Patient completed dialysis. Remains in Afib, without symptoms. Report given to Honey Nunez RN. Transported with belongings off unit.
--- NOTE | 2017-01-07 16:23 | NUR ---
Social Work- Initial Assessment Attempt Data: EMR reviewed. Pt is a 81 year old male 01/05/17 for severe abdominal pain, hemorrhagic mass per H&P. Pt's insurance is [employer]. NOK listed is Sue Wagner, sister, . Pts PCP is Valdo Horvath MD. SW attempted to meet with pt twice today at bedside regarding discharge plan. First time pt was at dialysis. SW followed up twice with pt after dialysis. Pt sleeping extremely deeply and was not able to be awoken both times. SW talked briefly with friend Tio [phone] at bedside. Tio reports pt resides in a home in [place] where he may use a walker at baseline. Per chart review, pt has a history of alcohol abuse, reportedly drinking 1 shot of whiskey per day. Pt has a history of missing dialysis, pt may benefit from a palliative care consultation while hospitalized. SW to follow up with pt regarding discharge plan and alcohol use when pt is awake and able to participate. Assessment: Pt who lives alone and uses a walker at baseline. Plan: After multiple assessment attempts, pt too somnolent to participate in assessment. SW to follow up with pt regarding discharge plan and alcohol use when pt is awake and able to participate. GAURAV Pearson
--- NOTE | 2017-01-07 17:30 | NUR ---
Telemetry Pt converted to Afib while undergoing dialysis; remained Afib upon return to [facility] unit. AM Metoprolol given late d/t dialysis treatment and at 1728, per telemetry, pt remains tachycardic, but now in sinus rhythm. Care continues.
[2017-01-08] VITALS (8 sets, daily range): BP systolic 99–131; BP diastolic 58–71; PULSE 87–129; RESP 18–21; O2SAT 95–99
[2017-01-08] MEDS: 0.9% Sodium Chloride 1,000 ML IV SCH ×3 (03:49→14:04)
--- NOTE | 2017-01-08 04:44 | NUR ---
Telemetry Patient had 8 beats of Afib and then converted to Aflutter at 0435. STAT EKG ordered.EKG showed sinus rhythm, HR 93. Normal P axis. Patient asymptomatic throughout.
--- NOTE | 2017-01-08 08:17 | NUR ---
Aflutter Patient had a second bout of Aflutter shortly after the first episode. Night hospitalist was paiged after first episode. Patient again converted back to sinus rhythm after a few minutes. Again, the patient was completely asymptomatic during Aflutter, sitting comfortably in bed. No chest pain Other vitals within normal range. Patient stated he was experiencing some nausea at the end of shift, but subsided a few minutes later.
[2017-01-08] MEDS: Pantoprazole 40 mg ER24 Tablet PO SCH ×2 (09:10→20:43)
--- NOTE | 2017-01-08 10:13 | NUR ---
RAHUL signed. Monalisa Zhang RECREATION ADVISER
--- NOTE | 2017-01-08 11:03 | PCM.PNNEPH ---
Subjective Date of Service Jan 08, 2017 Subjective The patient offers no new complaints today however he appears to have some considerable difficulties with short-term memory. He has not had any further hematuria Lake catheter some place. Exam Vital Signs Vital Sign - Last Date Time Temp Pulse Resp B/P Pulse Ox O2 Delivery O2 Flow Rate FiO2 01/08/17 08:51 100 01/08/17 06:52 36.9 20 131/61 95 Nasal Cannula 3.00 Intake and Output 01/07/17 01/07/17 01/08/17 Cumulative From/Thru 15:00 23:00 07:00 01/05/17 17:22 - 01/08/17 06:52 Intake Total 465 ml 1117 ml 4822 ml Output Total 2050 ml 550 ml 550 ml 7100 ml Balance -2050 ml -85 ml 567 ml -2278 ml Intake Oral 100 ml 250 ml 950 ml IV Total 365 ml 867 ml 3872 ml Output Urine Total 50 ml 550 ml 550 ml 5000 ml Emesis 100 ml Ultrafiltrate 2000 ml 2000 ml # Bowel Movements 0 1 Exam Neck is supple without adenopathy thyromegaly or jugular venous distention. Lungs are clear to auscultation. Heart was soft systolic murmur. Abdomen soft without tenderness rebound guarding masses or hepatosplenomegaly. Extremities show any evidence of any edema. Lab and Diagnostics Result Diagram: 01/07/17 0725 01/06/17 0545 Plan Impression Impression #1 end-stage renal disease dialysis dependent #2 renal mass with probable renal cell carcinoma #3 gross hematuria secondary to #2 Recommendations #1 I await further input from urology and the patient will be scheduled for dialysis on Monday. Valdo Strange DO Jan 08, 2017 11:03
[2017-01-08] MEDS: oxyCODONE-Acetamin 10-325 mg Tablet PO PRN (11:10)
--- NOTE | 2017-01-08 13:25 | PCM.PNMED ---
Subjective Date of Service Jan 08, 2017 Subjective Patient was seen and examined at bedside today. Patient denies any chest pain, shortness of breath, nausea, vomiting, diarrhea. Overnight events: None Exam Vital Signs Vital Sign - Last Date Time Temp Pulse Resp B/P Pulse Ox O2 Delivery O2 Flow Rate FiO2 01/08/17 11:33 36.9 89 18 128/69 98 Nasal Cannula 3.00 Intake and Output 01/07/17 01/07/17 01/08/17 Cumulative From/Thru 15:00 23:00 07:00 01/05/17 17:22 - 01/08/17 06:52 Intake Total 465 ml 1117 ml 4822 ml Output Total 2050 ml 550 ml 550 ml 7100 ml Balance -2050 ml -85 ml 567 ml -2278 ml Intake Oral 100 ml 250 ml 950 ml IV Total 365 ml 867 ml 3872 ml Output Urine Total 50 ml 550 ml 550 ml 5000 ml Emesis 100 ml Ultrafiltrate 2000 ml 2000 ml # Bowel Movements 0 1 Exam Physical Exam: GEN: Patient was awake, alert, responding appropriately to questions HEENT: Pupils equal round and reactive to light, extraocular eye muscles intact , Neck soft supple, trachea midline, nomocephalic/atraumatic CV: +S1/S2, regular rate and rhythm, grade 3/6 systolic murmur auscultated Respiratory: CTAB, no wheezes, rales, rhonchi GI: +bowel sounds x4, soft, compressible, nontender to palpation EXT: no clubbing, cyanosis, +1 pitting edema Neuro: Cranial nerves II-XII grossly intact Psych: mood and affect were appropriate IVs and Medications Medications Reviewed: Medications were reviewed in detail Lab and Diagnostics Result Diagram: 01/07/17 0725 01/06/17 0545 Assessment & Plan 81-year-old gentleman with a history of 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 -Currently no hematuria - Patient has restarted his aspirin and Plavix -Lake has been discontinued - We will continue to monitor hemoglobin Right renal mass, chronic - Seen on CT on admission, with findings suggestive of active bleeding - Urology consult 01/06 impression and recommend possible embolization by interventional radiology to treat the right mass -We will follow up with interventional radiology Bladder spasms, acute, present on admission. Ongoing - Likely secondary to renal mass - urine culture is negative - Valium proved to be too effective, and compromised his mentation and respiratory status; avoid - Continue pain control with IV medication and by mouth medications - Home urinary medications indicate hyoscyamine for bladder spasm, continued ESRD on HD, chronic. Presumed stable - Right fistula utilized; HD on , , - Steward/Stewardess Banquet: Dr. Khoury - Nephrology consult by Dr Strange done - Continued renal medications that were on reconciliation at time of admission: Renvela Coronary artery disease status post CABG, stent placement, chronic. Presumed stable - Continue statin, beta patricia - Imdur was prescribed at recent admission 04/2016, but does not appear on current medication list -Continue asa and plavix today History of AV re-entrant tachycardia s/p ablation, chronic. Presumed stable -Currently stable with heart rate 89 -Continue metoprolol 25 mg twice a day -Continue to monitor BPH, chronic. Presumed stable - Continue same medications Asthma, chronic. Presumed stable - Accu nebs as needed History of alcohol use, chronic. Presumed stable - Reports of whiskey daily - Monitor for signs and symptoms of withdrawal - Stable at this time - Banana bag given as precaution GERD, chronic. Presumed stable - Resume home PPI Goals of care - Patient stated that he wanted to "try" if anything were to happen to him but he does not wish for prolonged care - Encourage completion of POLST when patient is of clear mind PRN: Fever/bowel/pain/nausea DVT: SCDs only at this time secondary to possibility of active bleeding renal mass GI: PPI Diet: Heart healthy CODE STATUS: Full code Patient status: The patient currently has a renal mass and is not currently a surgical candidate. Urology has suggested interventional radiology in order to potentially embolize the mass, will follow-up with interventional radiology tomorrow to see if this is an option for the patient. This patient was discussed with nephrology (Dr. Strange) who agrees that at this time palliative care would be a good option for this patient to discuss goals of care as he is not always the most compliant as an outpatient. GI Prophylaxis: Proton Pump Inhibitor VTE Prophylaxis: SCDs VTE Mechanical Devices: Intermittant Pneumatic CD Resuscitation Status: CPR: Attempt Resuscitation Sania Blanco DO Jan 08, 2017 13:25
[2017-01-08] MEDS: Alum-Mag Hydrox-Simeth 30 mL Suspension PO PRN (14:28)
--- NOTE | 2017-01-08 15:23 | NUR ---
Social Work-initial assessment/Readiness for Discharge: Data:See initial assessment. Pt is a 81 y/o male who was admitted on 01/05/17 for severe abd pain. hemorrhagic mass right per H&P. Per morning rounds pt is possible to discharge tomorrow. Pt's insurance is Medicare and [employer] and PCP is Valdo Horvath MD. EMR Reviewed. Pt's readmission score is 3-high risk. SW met with pt at bedside to discuss discharge planning, SW role explained. Pt is alert and oriented x3. Pt resides at home alone in a single level home with two steps to enter where pt remains independent with basic ADLs. Pt uses a walker occasionally and drives POV. SW noted ETOH history per H&P and checked in with pt regarding alcohol use. Pt stated he drinks "about 3 quarts a month" but recently has not been drinking as he hasn't felt well. He does not think he has a problem with alcohol and declined CD resources. Pt has no HH or SNF history. Pt states his dtr Zack is DPOA but paperwork is not on file with the hospital. SW requested a copy. Pt stated he has not completed advanced directive paperwork and SW provided info to reviewe and complete. Pt has no terminal computer operator care or VA benefits. Pt's friend to provide transport home at discharge. No further needs assessed at this time. SW provided phone number and plan on white board in room. SW will continue to follow. Assessment:Pt who resides at home alone and is independent at baseline. Plan:Pt to likely discharge home via POV with no needs assessed. Pt declined CD resources. SW will continue to follow. Addendum: 01/08/17 at 1532 by ANGEL MULLEN Amended: Links added.
--- NOTE | 2017-01-08 18:02 | NUR ---
Indigestion/Nausea Pt c/o indigestion with emesis this AM post breakfast. Pt hungry for first time since arrival - good intake but emesis within the hour. Cook page to MD re: indigestion as pt again stating needing something. Received order for Maalox. Effective, care continues.
[2017-01-08] MEDS: Ondansetron 2 mg/mL 2 mL Inj IVPUSH PRN (20:48)
--- NOTE | 2017-01-08 23:12 | NUR ---
Nausea Pt vomited 300cc of undigested food. Given Zofran 8mg IV with relief. Continue to monitor.
[2017-01-09] VITALS (9 sets, daily range): BP systolic 106–135; BP diastolic 61–77; PULSE 52–88; RESP 18–20; O2SAT 96–100
[2017-01-09] MEDS: Alum-Mag Hydrox-Simeth 30 mL Suspension PO PRN ×3 (01:43→23:57)
[2017-01-09] MEDS: 0.9% Sodium Chloride 1,000 ML IV SCH (05:21)
[2017-01-09 08:15] LABS: Phosphorus 4.7 mg/dL (2.5-4.9)
[2017-01-09] MEDS: Ondansetron 2 mg/mL 2 mL Inj IVPUSH PRN (09:29)
[2017-01-09 10:06] LABS: Mean Corpuscular Hemoglobin 33.6 pg (27.0-35.0); Mean Corpuscular Volume 104.8 fL (81-100)
[2017-01-09] MEDS: Pantoprazole 40 mg ER24 Tablet PO SCH ×2 (10:56→20:12)
--- NOTE | 2017-01-09 10:57 | NUR ---
Nausea/scheduled med delay Patient with nausea this am. Refused/held am med dosing until nausea subsides. Unable to take scheduled meds until this time.
--- NOTE | 2017-01-09 12:45 | PCM.PNSURG ---
Subjective Date of Service: January 09, 2017 Date of Service: January 09, 2017 Visit Information: Reason for Visit Severe Abd Pain, Hemorrhagic Mass Right Kidney Surgery/Surgery Date Post-Op Day # NA Date of Admission: Jan 05, 2017 at 21:27 Hospital Day # 3 Subjective: Pt with some intermittent Nausea, continues on HD Ty HCT, w/o chester, urine clear Postop General: No Shortness of Breath, No Chest Pain Gastrointestinal: Tolerating Oral Feedings, Complains of Nausea Pain Management: PO Neurological: Other (fair insight in to overall health) Objective Vital Sign- Last 8 Hours Date Time Temp Pulse Resp B/P Pulse Ox O2 Delivery O2 Flow Rate FiO2 01/09/17 12:16 36.8 82 18 121/70 100 Nasal Cannula 3.00 01/09/17 09:39 Supplement Oxygen 01/09/17 09:26 86 01/09/17 08:00 85 18 99 Nasal Cannula 3.00 01/09/17 07:53 36.3 82 18 135/64 99 Nasal Cannula 3.00 01/09/17 06:31 36.6 52 20 126/66 96 Nasal Cannula 3.00 Intake and Output- Last 8 Hour 01/09/17 Cumulative From/Thru 07:00 01/05/17 17:22 - 01/09/17 06:31 Intake Total 1342 ml 7310 ml Output Total 1200 ml 9500 ml Balance 142 ml -2190 ml Intake Oral 450 ml 1874 ml IV Total 892 ml 5436 ml Output Urine Total 900 ml 6100 ml Emesis 300 ml 1400 ml Ultrafiltrate 2000 ml # Voids 7 7 # Bowel Movements 2 General: Cooperative, No Acute Distress Lungs: Normal Air Movement Heart: Exam Unremarkable (some dep edema) Extremities: Warm, Edema Localized Neuro: Normal Speech (clear speech, symmetric face, fair insight) Catheters: None Result Diagram: 01/09/1717 01/09/17616 Assessment & Plan Impression Pt is an 81 y/o gentleman admitted with SP pain, (previously known) Rt renal mass 7cm x 10x 7cm, and history of hematuria in setting of multiple medical issues including ESRD on HD , hyperlipidemia, hypertension, CAD s/p AK, nephrolithiasis, GERD, hepatitis C, and EtOH abuse Present illness, pt had most recently not been seen in urology clinic in 2 years since December 2014 when he went to the ER 01/03/2017 via EMS unable to urinate and had a catheter placed, also complaining of pain and with hematuria on plavix, known h/o stones. Catheter placed in ER and pt felt relief according to the ER notes. Urine was bloody. He got pain medications and felt better and was told to see Urology in am. Was seen by nursing (surgeons in the OR) on 01/04/17 and catheter irrigated out, returned to clinic 01/05/17 with c/o pain, chester was irrigated, felt to be draining fine. Pt had pain complaints and noted Hematemesis and was sent on the ER where he was admitted. CT as below noted few small non-obstructing stones and Rt renal mass 7 x 7 x 10cm in size, heterogeneous. On exam 01/06/17 in the hospital his chester catheter was draining Clear, Light Yellow urine. His abdominal exam was benign- protuberant, without pain with deep palpation R or L. No Back pain R/L with firm palpation. When asked to localize his discomfort he pointed to SP region only. He was holding an emesis bag, but denied nausea, anorexia or emesis. Nurse stated he had not vomited. He is a poor historian Review of older imaging shows known Rt renal mass (documented as ca 5x5cm) solid mass as of US done during March 2016 hospitalization for multiple medical issues. Pt was to f/u with d/c instructions to f/u with urology. He did not follow up with urology, only with nephrology and returned to Urology only in December 2016 with c/o gross hematuria. There are several documented phone calls in [facility] urology chart documenting attempts to set up f/u visit for this patient after his March 2016 hospitalization and he refused, saying he did not feel like he needed to see urology because he was seeing Nephrology. Mass (smaller at the time) had been suspected with outside CT from 2013 at time of problems with renal/ureteral stones. His f/u US and other imaging did not confirm presence of solid renal mass in setting of mult cysts. He has/had long h/o stones and interventions for stones with multiple urologists here and elsewhere through the years. Abdominal Imaging visible from [facility] since 2013: 01/05/17 NON-CON CT ABD/PELVIS (this ER visit) 7 x 10 x 7cm heterogeneous mass Rt kidney. No perinephric fluid collection, no evidence of acute inflammation/ bleeding, no hydroneposis. +smll nonobstructing stones 2-4mm in size Rt and L. Bladder decompressed nicely with chester cateter. No soft tissue density in bladder to suggest mass or blood clot. 04/04/16: RENAL US during unrelated hospitalization at [facility]: Solid appearing renal mass Rt side 5cm x 5cm x 5cm 07/02/14 RENAL U/S : no evidence of R renal mass, no renal calculi, no hydronephrosis, B/L renal cysts (several on R (largest 5.9cm in R mid pole and 4.1cm in R upper pole), simple L renal cysts (3.0cm and 1.5cm L mid pole)), L ureteral stent in place, 06/26/14 NON-CON CT ABD/PELVIS: L ureteral stent in good position, improved L hydronephrosis (mild), B/L renal cysts (largest on L: 3.2cm L mid pole, largest on R: 7cm L lower pole), unchanged 5.5cm area of mildly increased density in R renal pelvis --- 05/26/14 NON-CON CT ABD/PELVIS : moderate L hydroureteronephrosis, 2mm L mid ureteral calculus, 5.5cm R renal pelvis high density (possible hemorrhage vs. debris vs. mass), B/L renal cysts (largest on R 6.5cm R lower pole, largest on L 3.1cm L mid pole) Poor surgical candidate (for nephrectomy) given overall health h/o poor compliance likely related to other comorbidities- may benefit from treatment this hospitalization Embolization lower risk than nephrectomy in setting of multiple advanced comorbidities. Problems: Plan Discussed with his urologist (Dr Vera) and also with Dr Pimentel, films reviewed by all along with relevant medical history. Have discussed situation and plans with patient Have discussed with primary team/Dr Blanco today Discussed with Interventional Radiology Dr Holder today As he is a very poor surgical candidate (for nephrectomy) given overall health will set him up for embolization of his right kidney/mass Needs CT-Angiogram abdomen today or tomorrow Needs NPO after midnight Monday night currently on for Rt renal embolization 01/11/17 at 11:30am VTE Prophylaxis: SCDs Resuscitation Status: CPR: Attempt Resuscitation Arisco,Jessica M MD January 09, 2017 12:45
--- NOTE | 2017-01-09 12:48 | NUR ---
Palliative Care Palliative Care received order from Dr Blanco 01/08/17 to assist with goals of care. Patient is an 81 year old man with ESRD (on HD), CAD (s/p CABG + PCI 2 stents, nephrolithiasis s/p lithotripsy), hyperlipidemia and history of alcohol abuse. He was admitted 01/05/17 and is receiving care for acute on chronic urinary retention with associated suprapubic abdominal cramping, abdominal distention and right-sided flank pain. Patient lives at home alone. Sue Wagner (sister) [phone] Presley Church (friend) [phone] Tio Rooney (friend) [phone] Palliative Care to follow. Diane Conde
--- NOTE | 2017-01-09 13:13 | NUR ---
POC Urology ordered CT Angio for patient this afternoon. Confirmed r/o conflict with Barium Swallow at XR at 1430. CT will take pt for study prior to barium swallow since CT contrast must be given first. Currently scheduled for 1400.
--- NOTE | 2017-01-09 13:44 | PCM.PNNEPH ---
Subjective Date of Service January 09, 2017 Subjective Clear urine, no gross hematuria noted. stable, last HD on Monday. Exam Vital Signs Vital Sign - Last Date Time Temp Pulse Resp B/P Pulse Ox O2 Delivery O2 Flow Rate FiO2 01/09/17 12:16 36.8 82 18 121/70 100 Nasal Cannula 3.00 Intake and Output 01/08/17 01/08/17 01/09/17 Cumulative From/Thru 15:00 23:00 07:00 01/05/17 17:22 - 01/09/17 06:31 Intake Total 1146 ml 1342 ml 7310 ml Output Total 1200 ml 1200 ml 9500 ml Balance -54 ml 142 ml -2190 ml Intake Oral 474 ml 450 ml 1874 ml IV Total 672 ml 892 ml 5436 ml Output Urine Total 200 ml 900 ml 6100 ml Emesis 1000 ml 300 ml 1400 ml Ultrafiltrate 2000 ml # Voids 7 7 # Bowel Movements 1 2 Exam GENERAL: The patient in no apparent distress, and alert and oriented x3. HEENT: Head is normocephalic and atraumatic. Extraocular muscles are intact. NECK: Supple, no elevation of JVD, No carotid bruits. No lymphadenopathy or thyromegaly. LUNGS: Clear to auscultation, equal breath sounds bilaterally, no wheezing, no rhonchi no rales. HEART: Normal S1/S2, Regular rate and rhythm, systolic murmur noted, rubs or gallops. ABDOMEN: Soft, nontender, and nondistended. Positive bowel sounds. No hepatosplenomegaly was noted. EXTREMITIES: +1 edema. Lab and Diagnostics Result Diagram: 01/09/1761601/09/17616 Plan Impression 1. End-stage renal disease on hemodialysis every Monday, and Monday. 2. Gross hematuria. 3. Right renal mass. Renal cell carcinoma with hemorrhage versus large hemorrhagic cyst. 4. History of nephrolithiasis 5. Hypertension with hypertensive nephrosclerosis 6. Chronic hepatitis C infection 7. History of alcohol abuse 8. History of BPH and urinary retention. Plan: Per renal standpoint to continue dialysis every Monday and and Monday. Follow urology recommendation. Continue to monitor hemoglobin. Yves Mata MD January 09, 2017 13:44 Monday. Follow urology recommendation. Continue to monitor hemoglobin. Yves Mata MD January 09, 2017 13:44
--- NOTE | 2017-01-09 14:51 | DRSVH ---
PROCEDURE: X-RAY BARIUM SWALLOW WITH FOOD & VIDEOGRAPHY ([id number]) INDICATIONS: dyspesia and dysphagia TECHNIQUE: Examination was conducted in conjunction with speech pathology per standard protocol. In the lateral projection, filming was performed of the patient swallowing. AP projection filming may also be performed with patient swallowing. COMPARISON: None. FINDINGS: Function: The oral preparatory phase appears normal, with proper containment. The subsequent oral pr opulsive phase, pharyngeal phase, and esophageal phase of swallowing also appear normal with all prof fered substances. No laryngotracheal penetration or aspiration. Minimal vallecular pooling noted wi thin liquids. The attending physician was personally present in the room during the examination. The attending physician was personally present in the room during the examination. Morphology: No cricopharyngeal bar is identified. No cervical esophageal webs. No Zenker's diverti culum. No strictures. IMPRESSION: Minimal vallecular pooling noted within liquids otherwise no laryngeal penetration or tra cheobronchial aspiration. Dictated by: Rick Velasquez [facility] Interpreted: Laila Zaragoza MD on 01/09/2017 at 14:50 Transcribed by: COLE on 01/09/2017 at 14:50 Approved by: Laila Zaragoza MD, PhD on 01/09/2017 at 15:02
--- NOTE | 2017-01-09 14:51 | NUR ---
NUTRITION ASSESSMENT Assess: 81 YO M admitted with abdominal pain, hematuria, and right renal mass. Plan for right renal embolization. Pt with poor PO intake. Pt receiving dialysis. PMHX: CAD, SD, HLD, GERD, nephrolithaisis, ESRD on HD, vitamin D deficiency, BPH, mitral regurgitation, secondary hyperparathyroid, Renal lithiasis. afib, CHF, HTN, hypertensive heart disease, hypertensive nephrosclerosis,asthma. DIET:Heart Healthy + Nepro. PO intake 10-25% LABS: Na 147, Cr 5.43, Glu 110, Alb 3.3 MEDICATIONS: Reviewed. Senna. GI: 1 BM 01/08. SKIN: No issues noted. ANTHROPOMETRICS: 98.1 kg, BMI 31.0 kg/m2, Admit wt: 94.4 kg, IBW: ESTIMATED NEEDS: BMI/DIALYSIS Calories: 6321-0380 kcal/day (22-25 kcal/kg BW) Protein: 113-151 g/day (1.5-2.0 g/kg IBW) NUTRITION DIAGNOSIS: 1) Inadequate oral intake related to decreased ability to consume sufficient energy as evidenced by poor PO intake. 2) Increased nutrient needs related to ESRD as evidenced by need for hemodialysis. INTERVENTION: 1) Continue current diet and supplements as ordered. MONITOR/EVALUATE: PO intake, diet tolerance, labs, POC, GI, nutrition status. Follow per moderate nutrition risk guidelines.
--- NOTE | 2017-01-09 15:03 | DRSVH ---
PROCEDURE: CT ANGIOGRAPHY OF THE ABDOMEN WITH AND WITHOUT CONTRAST ([id number]) INDICATIONS: Renal cell carcinoma, preprocedural evaluation prior to embolization. TECHNIQUE: After the administration of intravenous contrast, 2 and 5 mm sections acquired from the diaphragm to the iliac crests. 3-dimensional maximum intensity projection (MIP) coronal and sagittal reformats, a nd/or 3-dimensional volume rendering reformatting was then performed. For radiation dose reduction, the following was used: automated exposure control. COMPARISON: [facility], CT, CT KUB, 01/05/2017, 20:00. FINDINGS: Image quality: Excellent. Extravascular tissues: Lung bases are clear. Heart size is normal. Liver and spleen are normal in size. Multiple hepatic cysts are present. Spleen is within normal limits. Gallbladder is contracted. Biliary system is non dilated. Pancreas enhances normally. No adrenal nodules. Multiple bilateral renal cysts are present. There is an avidly enhancing mass within the superior pole and interpolar ri ght kidney, measuring roughly 90 mm transverse by 74 mm anteroposterior by 75 mm craniocaudal. Non-op acified bowel loops demonstrate normal wall thickness and caliber. No free fluid or air. No retrope ritoneal or mesenteric adenopathy. No ventral hernias. No suspicious bony abnormalities. No verteb ral body compression fractures. Abdominal aorta: Severe diffuse aortic plaque is present, causing mild diffuse stenosis. No evidence of aneurysm, or dissection. Mesenteric arteries: There is a moderate origin stenosis involving the celiac artery. Moderate steno sis involves the proximal superior mesenteric artery. Inferior mesenteric artery demonstrates a moder ate origin stenosis. Renal arteries: Single bilateral renal arteries are present. There is a mild origin stenosis involvin g the left renal artery. There is a high-grade origin stenosis involving the right renal artery. IMPRESSION: 1. Right renal cell carcinoma. 2. Single bilateral renal arteries, with right greater than left origin stenoses. Dictated by: Lea Holder M.D. on 01/09/2017 at 14:37 Approved by: Lea Holder M.D. on 01/09/2017 at 15:01
--- NOTE | 2017-01-09 15:10 | NUR ---
MBSS completed with radiologist. Discussed with RN. Rec: Thin/Soft diet with alternating liquids and solids. No aspiration/penetration noted in study. Pill became stuck in valleculae and cleared with multiple sips of thin water. Report dictated today. Please see full report for more details.
--- NOTE | 2017-01-09 15:10 | NUR ---
Evaluation completed. Please go to "Notes" then click on "Assessments and Notes" (bottom left corner of screen). Then select appropriate discipline tab on top of screen.
--- NOTE | 2017-01-09 15:31 | PCM.CONPAL ---
Date of Service January 09, 2017 Date of Hospital Admission: Jan 05, 2017 at 21:27 Date of Palliative Consult: January 09, 2017 Requesting Provider: Sania Blanco DO Reason Palliative Care Consult: Goals of Care Discussion Hospital Unit @time of consult: Orthopedic/Surgical Care Palliative Care Recommendation 81-year-old gentleman with complex medical history, admitted with abdominal pain and finding of large renal mass (probably renal CA)- now scheduled for embolization procedure on 01/11/17 as his health overall is felt to be too tenuous to allow major surgery. Palliative medicine consult to assist with determination of goals of care Summary of palliative recommendations: -Symptom management (Pain/other)- comfortable at this time. Adequate pain relief with oral oxycodone. No other significant symptoms. Continued management per hospitalist. Symax (hyoscyamine) and B+O suppos. ordered for bladder spasms but hasn't needed since 01/07. -DPOA/Advanced Directives/POLST- says that his daughter Zack and sister Sue are his POAs (he cannot remember if they do this jointly or one is prioritized) . He also says that he has completed an advanced directive; we do not have copies of any of this paperwork. Today, when I reviewed his advanced care issues, he said that he certainly would want to be resuscitated, but he would not want to be kept alive "if I am a drooling vegetable". He remains full code at this time. -Family/emotional support- sounds like he has excellent support network with friends and family. Palliative medicine will continue to follow. Patient Goals: 1. Patient wants to be told the truth about his illness, even if it is unpleasant. 2. Patient would like to be told prognosis when it can be predicted, to better guide treatment decisions. He says that he realizes he will some time, but he does not know what from, and for now he still has a lot of things that he enjoys doing. Additional Medical Diagnoses with primary management by Hospitalist team include : Hematuria, urinary retention, and suprapubic tenderness, acute, present on admission. Right renal mass, chronic Bladder spasms, acute, present on admission. Ongoing ESRD on HD, chronic. Presumed stable Coronary artery disease status post CABG, stent placement, chronic. Presumed stable History of AV re-entrant tachycardia s/p ablation, chronic. Presumed stable BPH, chronic. Presumed stable Asthma, chronic. Presumed stable History of alcohol use, chronic. Presumed stable GERD, chronic. Presumed stable Problems: End of Life Preferences As above Goals of Care Treatment and return to baseline level of function Disposition Probable return home Resuscitation Status Resuscitation Status: CPR: Attempt Resuscitation POLST Updates/Changes Previous POLST?: No POLST Review Outcome: No Change . Advanced Care Planning Address: Durable Power of Surface Plate Inspector Pain: Mild Symptom management: Pain Pt History History of Present Illness Per admission H&P: 81-year-old gentleman with a history of ESRD on HD with production of urine, coronary artery disease status post CABG + PCI 2 stents, nephrolithiasis, hyperlipidemia, and history of alcohol abuse, that presented to the emergency department with acute on chronic urinary retention with associated suprapubic abdominal cramping, abdominal distention, and right-sided flank pain; he was seen 2 days prior to this admission for similar symptoms and was discharged with a catheter. He returns today for ongoing symptom management secondary to worsening of presenting symptoms. CT KUB on admission revealed a large heterogeneous enhancing of his right renal mass, suggestive of renal cell carcinoma with hemorrhage versus large hemorrhagic cyst. He was admitted for evaluation and treatment of his symptoms and the CT findings. Hospital day 1 Mr. Castro is a poor historian, which is complicated by the recent administration of Valium while in the emergency department. This made it extremely difficult to extract any details about his past medical history. He was able to endorse his abdominal pain, with his associated right flank pain. He denied any fever, chills, nausea, vomiting, shortness of breath, chest pain. He first stated his location as [place], [place], and when asked the date, he replied that he "knows where he is." He was later able to accurately state that he was in [place], but his response was unrelated to the current question at hand. He states his urinary symptoms have been ongoing over the recent months. He states he has missed his most recent 2 dialysis sessions, but the details are unclear, he is followed by Dr. Khoury. When asked if he knew why he was here, he did accurately state that he is aware that he has a right-sided renal finding which might be "bleeding, or causing clots." His lucidity waxed and waned throughout the interview. In the ED, initial vitals included T 35.9, pulse 98, respiratory rate 18, blood pressure 92/56, 94% on room air; after the administration of Valium, his respiratory rates were noted to drop into the 80s despite supplemental oxygen therapy. He was arousable. Initial lab findings revealed WBC 8.3, hemoglobin 11.3, platelets 235, BUS 48, creatinine 7.56, LFTs within range; UA was ordered and collected, results pending at time of admission. Initial therapies included Dilaudid 0.5 mg, Valium [address] KUB revealed large heterogeneous enhancement of the right renal mass which is suggestive of renal cell carcinoma with hemorrhage or large hemorrhagic cyst , in addition to that finding bilateral renal cysts, small bilateral nonobstructing renal stones were also seen without any evidence of hydronephrosis, coronary vasculature was noted to be atherosclerotic. The large heterogeneous enhancing mass measured 7.6 x 10.3 x 7.6 cm within the right kidney. Multiple stones were noted, nonobstructing, measured at 2, 3, and 4 mm. The bladder wall thickness was noted to be normal, and there were no calcified bladder stones observed. The ED contacted the on-call urologist, who has kindly agreed to consult on the patient. The patient was in stable condition awaiting transfer to [facility]. Palliative medicine was consulted to assist with determination of goals of care. Prior to visiting, I reviewed his records in the EMR in detail, both for this admission and previous admissions. Also spoke with his bedside nurse. On my arrival, he had just returned from radiology, where he underwent CT angiography as well as barium swallow. Results of these studies are pending. He tells me that he feels well. No further suprapubic pain or spasms. He denies other symptoms or distress. We discussed the problems he had been having that led to this admission and reviewed his understanding of his present diagnoses and treatment plans. Also reviewed his social history, plans and goals for the future, current living situation etc. He notes that he is anxious to get out of the hospital before Monday because he has an appointment to see a fibreglass gun hand for treatment of skin cancer/actinic keratoses of his scalp. 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 Living Situation: Lives independently in his own home on [address]. Retired 26 years; enjoys woodworking and other hobbies; previously wintered in [place] but because of dialysis, does not plan on doing this any longer Lifelong avid motorcyclist and says that he has motorcycle toured all over the [facility] and still has a small motorcycle at home that he rides in the summer Palliative Performance Scale PPS Patient Status: Baseline PPS Ambulation: Reduced PPS Activity: Normal activity with effort PPS Self-Care: Full Self Care PPS Intake: Normal PPS Conscious Level: Full Performance Scale: 80% ADLs ADL Patient Status: Baseline ADL Ambulation: Reduced ADL Dressing: Full ADL Feeding: Full ADL Hygene/bathing: Full ADL Transfers: Full POLST at Time of Admission Previous POLST?: No Allergy Allergies Reviewed: Yes Medications Current Medications: Current Medications Al Hydrox/Mg Hydrox/Simethicone 30 ml Q4H PRN PO Last administered on 01/09/17t 09:29; Admin Dose 30 ML; Start 01/08/17 at 14:05 Scheduled Aspirin (Aspirin) 81 Mg Tablet 81 MG PO QAM Atorvastatin Calcium (Atorvastatin Calcium) 80 Mg Tablet 80 MG PO HS Calcitriol (Rocaltrol) 0.25 Mcg Capsule 0.5 MCG PO QAM Cholecalciferol (Vitamin D3) (Vitamin D3) 2,000 Unit Tablet 2,000 UNIT PO QAM Clopidogrel Bisulfate (Plavix) 75 Mg Tablet 75 MG PO QAM Finasteride (Finasteride) 5 Mg Tablet 5 MG PO QAM Lysine (Lysine) 1,000 Mg Tablet 1,000 MG PO QAM Metoprolol Tartrate (Metoprolol Tartrate) 25 Mg Tablet 25 MG PO QAM Omeprazole (Omeprazole) 20 Mg Capsule.dr 20 MG PO QAM Sennosides (Senna) 8.6 Mg Tablet 8.6 MG PO QAM Sevelamer Carbonate (Renvela) 800 Mg Tablet 800 MG PO TIDWM Sodium Bicarbonate (Sodium Bicarbonate) 325 Mg Tablet 650 MG PO TID Tamsulosin ER (Tamsulosin ER) 0.4 Mg Cap.er.24h 0.4 MG PO HS Torsemide (Torsemide) 20 Mg Tablet 40 MG PO QAM Scheduled PRN Albuterol HFA (Proair HFA) 8.5 Gm Hfa.aer.ad 2 PUFFS INHALATION Q4H PRN PRN For Shortness of Breath Diltiazem (Diltiazem) 30 Mg Tablet 30 MG PO QID PRN PRN palpitations Fluticasone Propionate (Fluticasone Propionate Nasal) 16 Gm Hammond.susp 1 SPRAY NASAL DAILY PRN PRN For Congestion Hyoscyamine (Hyoscyamine) 0.125 Mg Tablet 0.125 MG PO Q4H PRN PRN BLADDER SPASMS Nitroglycerin SL (Nitrostat) 0.4 Mg Tablet 0.4 MG SL Q5MIN PRN PRN For Chest Pain Oxycodone HCl/Acetaminophen (Endocet 10-325 mg Tablet) 1 Each Tablet 1-2 EACH PO Q4H PRN PRN For Pain Triamcinolone Acet (Triamcinolone Acetonide Ointment) 1 Applic/0.25 Gm Oint 1 APPLIC TOP BID PRN PRN RASH Objective Findings Exam Vital Sign - Last Date Time Temp Pulse Resp B/P Pulse Ox O2 Delivery O2 Flow Rate FiO2 01/09/17 12:16 36.8 82 18 121/70 100 Nasal Cannula 3.00 Intake and Output 01/08/17 01/08/17 01/09/17 Cumulative From/Thru 15:00 23:00 07:00 01/05/17 17:22 - 01/09/17 06:31 Intake Total 1146 ml 1342 ml 7310 ml Output Total 1200 ml 1200 ml 9500 ml Balance -54 ml 142 ml -2190 ml Intake Oral 474 ml 450 ml 1874 ml IV Total 672 ml 892 ml 5436 ml Output Urine Total 200 ml 900 ml 6100 ml Emesis 1000 ml 300 ml 1400 ml Ultrafiltrate 2000 ml # Voids 7 7 # Bowel Movements 1 2 Objective Limited today, per hospitalist: GEN: Patient was awake, alert, responding appropriately to questions HEENT: Pupils equal round and reactive to light, extraocular eye muscles intact , Neck soft supple, trachea midline, nomocephalic/atraumatic CV: +S1/S2, regular rate and rhythm, grade 3/6 systolic murmur auscultated Respiratory: CTAB, no wheezes, rales, rhonchi GI: +bowel sounds x4, soft, compressible, nontender to palpation EXT: no clubbing, cyanosis, +1 pitting edema Neuro: Cranial nerves II-XII grossly intact Psych: mood and affect were appropriate Lab/Diagnostics Lab and Imaging results reviewed in detail in EMR. Time spent Total time 60 minutes; >50% face to face with patient, providing counselling regarding plans and recommendations, and in care coordination with his medical teams. Of the above total time, 15 minutes counseling for advanced care planning with the patient copies to: Valdo Horvath MD, David F MD January 09, 2017 15:31
--- NOTE | 2017-01-09 16:07 | PCM.PNMED ---
Subjective Date of Service January 09, 2017 Subjective Patient was seen and examined at bedside today. Patient denies any chest pain, shortness of breath, vomiting, diarrhea. Patient currently complains of nausea and dyspepsia/dysphagia. Patient states that he is okay with drinking liquids however any solid foods seem to be very difficult for him to swallow and cause pain in the esophagus. Overnight events: None Exam Vital Signs Vital Sign - Last Date Time Temp Pulse Resp B/P Pulse Ox O2 Delivery O2 Flow Rate FiO2 01/09/17 12:16 36.8 82 18 121/70 100 Nasal Cannula 3.00 Intake and Output 01/08/17 01/08/17 01/09/17 Cumulative From/Thru 15:00 23:00 07:00 01/05/17 17:22 - 01/09/17 06:31 Intake Total 1146 ml 1342 ml 7310 ml Output Total 1200 ml 1200 ml 9500 ml Balance -54 ml 142 ml -2190 ml Intake Oral 474 ml 450 ml 1874 ml IV Total 672 ml 892 ml 5436 ml Output Urine Total 200 ml 900 ml 6100 ml Emesis 1000 ml 300 ml 1400 ml Ultrafiltrate 2000 ml # Voids 7 7 # Bowel Movements 1 2 Exam Physical Exam: GEN: Patient was awake, alert, responding appropriately to questions HEENT: Pupils equal round and reactive to light, extraocular eye muscles intact , Neck soft supple, trachea midline, nomocephalic/atraumatic CV: +S1/S2, regular rate and rhythm, systolic murmur auscultated Respiratory: CTAB, no wheezes, rales, rhonchi GI: +bowel sounds x4, soft, compressible, nontender to palpation, mildly distended EXT: no clubbing, cyanosis, edema, right upper extremity fistula with a palpable thrill Neuro: Cranial nerves II-XII grossly intact Psych: mood and affect were appropriate IVs and Medications Medications Reviewed: Medications were reviewed in detail Lab and Diagnostics Result Diagram: 01/09/1761601/09/17616 Assessment & Plan 81-year-old gentleman with a history of 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 -Currently no hematuria - Patient has restarted his aspirin and Plavix -Lake has been discontinued - We will continue to monitor hemoglobin Right renal mass, chronic - Seen on CT on admission, with findings suggestive of active bleeding -CT angiogram of abdomen and pelvis results pending - Embolization by interventional radiology to treat the right mass scheduled for Thursday 01/11 at 11:30 in the morning - Nothing by mouth at midnight tomorrow Bladder spasms, acute, present on admission. Ongoing - Likely secondary to renal mass - urine culture is negative - Valium proved to be too effective, and compromised his mentation and respiratory status; avoid - Continue pain control with IV medication and by mouth medications - Home urinary medications indicate hyoscyamine for bladder spasm, continued ESRD on HD, chronic. Presumed stable - Right fistula utilized; HD on , , - Regulatory Specialist: Dr. Khoury - Nephrology consult by Dr Strange done - Continued renal medications that were on reconciliation at time of admission: Renvela Dysphasia and dyspepsia -Speech consulted -Barium swallow study results pending -Downgrade patient's diet to clear liquids Coronary artery disease status post CABG, stent placement, chronic. Presumed stable - Continue statin, beta patricia - Imdur was prescribed at recent admission 04/2016, but does not appear on current medication list -Continue asa and plavix today History of AV re-entrant tachycardia s/p ablation, chronic. Presumed stable -Currently stable with heart rate 89 -Continue metoprolol 25 mg twice a day -Continue to monitor BPH, chronic. Presumed stable - Continue same medications Asthma, chronic. Presumed stable - Accu nebs as needed History of alcohol use, chronic. Presumed stable - Reports of whiskey daily - Monitor for signs and symptoms of withdrawal - Stable at this time - Banana bag given as precaution GERD, chronic. Presumed stable - Resume home PPI Goals of care - Patient stated that he wanted to "try" if anything were to happen to him but he does not wish for prolonged care - Encourage completion of POLST when patient is of clear mind - Palliative care consulted PRN: Fever/bowel/pain/nausea DVT: SCDs only at this time secondary to possibility of active bleeding renal mass GI: PPI Diet: Clear liquids CODE STATUS: Full code Patient status: Today the plan was discussed with urology (Dr. Jessica Eubanks) that the patient should have an embolization performed by interventional radiology in order to treat the right renal mass. At this time the patient is not a surgical candidate secondary to his multiple comorbidities and this seems to be the best course of action for the patient at this time. This will be done on January 11 at 11:30 in the morning. Patient will be made nothing by mouth at midnight tomorrow in preparation for procedure. We will continue to evaluate the patient's barium swallow test for any further reasons/causes to the patient's dyspepsia/dysphasia. GI Prophylaxis: Proton Pump Inhibitor VTE Prophylaxis: SCDs VTE Mechanical Devices: Intermittant Pneumatic CD Resuscitation Status: CPR: Attempt Resuscitation Sania Blanco DO January 09, 2017 16:07
--- NOTE | 2017-01-09 16:13 | NUR ---
Social Work-continued d/c planning: Data:EMR Reviewed. Pt is on day 4 of hospitalization for severe ab pain per H&P. Pt is not medically stable anticipate 1-2 more days. Pt resides at home alone and is currently declining CD resources. MD order palliative care to see pt and pt also to have barium swallow. Pt may benefit from PT evaluation prior to discharge. R/O HH services. SW will continue to follow. Assessment:Pt who is independent at baseline. Plan:Anticipate pt to discharge home when medically stable.Pt may benefit from PT evaluation prior to discharge. R/O HH services. SW will continue to follow. GAURAV Nichols
[2017-01-09] MEDS: oxyCODONE-Acetamin 10-325 mg Tablet PO PRN (16:30)
[2017-01-10] VITALS (11 sets, daily range): BP systolic 114–143; BP diastolic 66–76; PULSE 80–100; RESP 16–20; O2SAT 94–98
--- NOTE | 2017-01-10 01:14 | NUR ---
A-Fib/Difficulty swallowing Per cartography/mapping technician this evening, patient has intermittently gone into a-fib. This is more frequent than the previous night, however, the dysrhythmias are not lasting very long. Patient appears to be asymptomatic. Other VSS. Patient states that 'something" feels funny. He states that he has indigestion and difficulty swallowing when swallowing his medications. Maalox administered. Call light within reach. Patient instructed to use call light. Care continues.
--- NOTE | 2017-01-10 03:24 | ST BAR ---
[address] [address] SPEECH BARIUM SWALLOW STUDY PATIENT: ОЛЬГА CLARK : 1935 MR#: [id number] ADMIT: 01/05/2017 JOB ID: [id number] DATE OF SERVICE: 01/09/2017 THERAPIST: Carina Abreu MS, CCC-SHOE CUTTER REFERRING PHYSICIAN: Sania Blanco DO PRIMARY DIAGNOSIS: Dysphagia. TREATMENT DIAGNOSIS: Dysphagia. VISITS FROM START OF CARE: 1 CURRENT RELEVANT HISTORY: This is an 81-year-old gentleman with a history of ESRD on HD with production of urine, coronary artery disease status post CABG plus PIC x2 stents, hyperlipidemia, history of alcohol abuse who presented to the emergency department on Monday with acute on chronic urinary retention, abdominal cramping and distention and right-sided flank pain. This patient was previously discharged for similar symptoms approximately [address] KUB completed on January 05 revealed a large heterogeneous enhancement of the right renal mass suggestive of renal cell carcinoma with a hemorrhage or large hemorrhagic cyst in addition to finding bilateral renal cysts, small bilateral nonobstructing renal stones. Also seen was evidence of hydronephrosis, coronary vascula, and noted atherosclerotic. The patient has been having ongoing nausea, dyspepsia, and dysphagia. Patient stated this morning that he has been having difficulty swallowing food, which causes pain in his esophagus. Dr. Blanco requested this evaluation for difficulty with dysphagia as well as assessment of the upper airway to insure that no aspiration penetration seen with any food or liquid. MEDICAL NECESSITY: Aspiration risk. PRIOR LEVEL OF FUNCTION: Independent with all speech and swallowing, eating a thin regular diet. PREVIOUS THERAPY: None. RELEVANT HOSPITALIZATIONS: Patient is currently inpatient at [facility] and has been since January 05. BASELINE TESTS AND MEASURES: A modified barium swallow study was conducted today with a radiologist. The patient was seated in modified barium swallow chair and viewed laterally. The textures presented thin pudding, dysphagia mechanical, mechanical soft, regular, and barium pill with water. Oral phase: The patient's labial seal noted to be complete. Oral preparation, formation and anterior to posterior transit of all boluses noted to be within functional limits. Pharyngeal phase: Patient was noted to have premature spillage over the base of the tongue with all presentations today. Laryngeal excursion was noted to be decreased. Laryngeal elevation also noted to be decreased. Swallow reflex was delayed not beginning until the food was in the vallecular. Epiglottic transition noted to be reduced. Patient had vallecular residue which increased with pudding thick liquids and with barium pill. No piriform sinus residue was noted on this study. The patient was able to clear residue from the vallecula with activation of swallow for pudding and with multiple swallows of thin liquids with pills. No laryngeal penetration or aspiration was seen on this study today. Overall pharyngeal constriction noted to be decreased showing a [id number] risk for potential for aspiration. Esophageal phase: Please see radiologist report for further details. Barium pill was administered and noted to become lodged in the vallecula and later cleared with multiple sips of thin liquid, cricopharyngeal relaxation appeared to be normal. No cricopharyngeal bar noted. COMPENSATORY STRATEGIES ATTEMPTED: Cues for hard fast swallow were given throughout this session today. The patient able to complete each swallow as instructed. No need for other compensatory strategies as the patient demonstrated grossly normal swallowing function. ASPIRATION RISK: Mild to moderate. TEXTURE RECOMMENDATIONS: Recommend a thin soft diet as tolerated esophageally. It was recommended patient take small bites and sips of food alternating between liquids and solids in order to continue to clear vallecular residue and any difficulty esophageally. It is recommended that this patient follow up with a barium swallow study to assess the distal esophagus for any further difficulties. EVALUATION RESULTS: This is a very pleasant, 81-year-old male seen for an inpatient modified barium swallow study today presents with a mild pharyngeal dysphagia characterized by pre-spillage to the level of the vallecula with vallecular residue, difficulty clearing vallecular residue with pills needing multiple swallows of thin liquids, decreased laryngeal elevation and excursion, and decreased laryngeal construction adding a mild risk for aspiration. No aspiration or penetration was seen in this study. It is recommended this patient follow up with a barium swallow study to evaluate the distal esophagus for any other structures or other difficulties in this area. Patient is safe for a thin soft diet and pills one at a time with water or applesauce as needed. Thank you for this timely referral today. cc: DO NACHO Montelongo
--- NOTE | 2017-01-10 04:03 | NUR ---
Confusion/Mentation Patient had periods of confusion throughout shift. Patient found sitting at edge of bed with gown and ECG leads off. Patient had no idea he was in the hospital. Patient mentioned to me that " we were on a mission". Leads placed back on patient and patient put back to bed. Call light within reach. Care continues.
[2017-01-10 06:31] LABS: Mean Corpuscular Hemoglobin 33.1 pg (27.0-35.0); Mean Corpuscular Volume 107.2 fL (81-100)
--- NOTE | 2017-01-10 07:59 | NUR ---
Emesis / confusion Pt denies nausea this a.m. but requested a new emesis bag. He handed me his other emesis bag which showed 200 mL of greenish emesis. Pt having difficulty conversing this a.m. States he "can't find the words" to express how he is feeling. Also denies pain. Pt to have dialysis this a.m. Care continues.
[2017-01-10] MEDS: Pantoprazole 40 mg ER24 Tablet PO SCH ×2 (08:08→20:30)
--- NOTE | 2017-01-10 08:28 | NUR ---
Pt off unit Pt to dialysis at 0820 hrs.
--- NOTE | 2017-01-10 10:39 | PCM.PNNEPH ---
Subjective Date of Service January 10, 2017 Subjective Pt is seen during HD, stable BP. No episodes of hematuria overnight. Exam Vital Signs Vital Sign - Last Date Time Temp Pulse Resp B/P Pulse Ox O2 Delivery O2 Flow Rate FiO2 01/10/17 09:26 86 01/10/17 08:18 36.8 18 124/73 97 Room Air 01/10/17 04:47 3.00 Intake and Output 01/09/17 01/09/17 01/10/17 Cumulative From/Thru 15:00 23:00 07:00 01/05/17 17:22 - 01/10/17 04:47 Intake Total 2891 ml 400 ml 15155 ml Output Total 375 ml 500 ml 74657 ml Balance 2516 ml -100 ml 226 ml Intake Oral 940 ml 400 ml 3214 ml IV Total 1951 ml 7387 ml Output Urine Total 375 ml 500 ml 6975 ml Emesis 1400 ml Ultrafiltrate 2000 ml # Voids 7 # Bowel Movements 2 Exam GENERAL: The patient in no apparent distress, and alert and oriented x3. HEENT: Head is normocephalic and atraumatic. Extraocular muscles are intact. NECK: Supple, no elevation of JVD, No carotid bruits. No lymphadenopathy or thyromegaly. LUNGS: Clear to auscultation, equal breath sounds bilaterally, no wheezing, no rhonchi no rales. HEART: Normal S1/S2, Regular rate and rhythm, systolic murmur noted, rubs or gallops. ABDOMEN: Soft, nontender, and nondistended. Positive bowel sounds. No hepatosplenomegaly was noted. EXTREMITIES: No edema, right AVF with good thrill and bruit. Lab and Diagnostics Result Diagram: 01/10/1745 01/10/1745 Plan Impression 1. End-stage renal disease on hemodialysis every Monday, and Monday. 3.5 hr, 3K, 35HCO3, DFR 600, BFR 400 Revaclear, UF 2L, AVF. 2. Gross hematuria. resolved. 3. Right renal mass. Renal cell carcinoma with hemorrhage versus large hemorrhagic cyst. 4. History of nephrolithiasis 5. Hypertension with hypertensive nephrosclerosis 6. Chronic hepatitis C infection 7. History of alcohol abuse 8. History of BPH and urinary retention. Plan: Next HD on . Follow urology recommendation. Embolization by interventional radiology on 01/11/17. Continue to monitor hemoglobin. Yves Mata MD January 10, 2017 10:39
--- NOTE | 2017-01-10 13:05 | NUR ---
dialysis note 4 hr HD tx. Irasema 600ml net UF removed. Set initial goal for 1K (pt appears a little dry), pt off to the BR X1 for large liquid stool and extra rinse back given. Pt agitated, confused at times. Easy to redirect but seems uncomfortable and can not articulate what's bothering him. See DTR for complete vitals. 2 15 g needles to NIKO fistula. QB 400 per MD orders. Sureseals/clamps X10 mins post tx. Report given and pt returned to floor stable.
--- NOTE | 2017-01-10 13:43 | NUR ---
Post dialysis Pt returned to [facility] from dialysis at 1315 hrs. VSS. PIV intact and patent. Pt agitated and impulsive. Kept his eyes closed and had trouble following directions. Tried to get up out of bed and had his legs on top of the bed rail. Pt said he had to urinate. Made several attempts to have pt use the urinal, but he was unable to cooperate. With help from the FRETTED INSTRUMENT INSPECTOR we were able to get pt into the bathroom to use the toilet. Pt voided and also had a loose BM. Pt told me my face looked green. A few minutes later he told me my face was purple. Asked charge nurse to see if a sitter could be arranged for safety. Care continues.
[2017-01-10] MEDS: oxyCODONE-Acetamin 10-325 mg Tablet PO PRN (14:49)
--- NOTE | 2017-01-10 16:07 | NUR ---
SW attempted to follow-up with pt regarding HH. RN was working with pt. SW will continue to follow.
--- NOTE | 2017-01-10 17:07 | PCM.PALLBR ---
Palliative Care Recommendation 81-year-old gentleman with complex medical history, admitted with abdominal pain and finding of large renal mass (probably renal CA)- now scheduled for embolization procedure on 01/11/17 as his health overall is felt to be too tenuous to allow major surgery. Palliative medicine consult to assist with determination of goals of care Summary of palliative recommendations: 01/10/17-Pain adequately controlled-no complaint of spasms. Renal mass- presumed cancer. Planned for embolization 01/11/17 Reviewed with both Sue Wagner sister ([phone]) and Zack Hammond- daughter ([phone] and cell [phone]) about clinical course and recommendations to date. Zack chavez has been estranged for yrs and only recently back into some communications. He has not had any discussions re GOC/ EOL philosophies. She has no idea if DPOAHC/AD is on paper somewhere. It sounds like he has been fairly astute, managing his own affairs up to this point. Mild delirium-suspect due to severity of ds, comorbidities- age, ESRD, ASVD and hx ETOH abuse. Right now I would question his decisional capacity but I think this needs to be judged day to day.His daughter works and will not come up unless necessary but can be reached at the above # When mental clarity better-I believe code status could use more discussion in that expected outcome would be likely very poor if he survived at all based on his comorbidities-ESRD, malignancy, ASVD etc. -Symptom management (Pain/other)- comfortable at this time. Adequate pain relief with oral oxycodone. No other significant symptoms. Continued management per hospitalist. Symax (hyoscyamine) and B+O suppos. ordered for bladder spasms but hasn't needed since 01/07. -DPOA/Advanced Directives/POLST- says that his daughter Zack and sister Sue are his POAs (he cannot remember if they do this jointly or one is prioritized) . He also says that he has completed an advanced directive; we do not have copies of any of this paperwork. Today, when I reviewed his advanced care issues, he said that he certainly would want to be resuscitated, but he would not want to be kept alive "if I am a drooling vegetable". He remains full code at this time. -Family/emotional support- sounds like he has excellent support network with friends and family. Palliative medicine will continue to follow. Patient Goals: 1. Patient wants to be told the truth about his illness, even if it is unpleasant. 2. Patient would like to be told prognosis when it can be predicted, to better guide treatment decisions. He says that he realizes he will some time, but he does not know what from, and for now he still has a lot of things that he enjoys doing. Additional Medical Diagnoses with primary management by Hospitalist team include : Hematuria, urinary retention, and suprapubic tenderness, acute, present on admission. Right renal mass, chronic Bladder spasms, acute, present on admission. Ongoing ESRD on HD, chronic. Presumed stable Coronary artery disease status post CABG, stent placement, chronic. Presumed stable History of AV re-entrant tachycardia s/p ablation, chronic. Presumed stable BPH, chronic. Presumed stable Asthma, chronic. Presumed stable History of alcohol use, chronic. Presumed stable GERD, chronic. Presumed stable Problems: End of Life Preferences As above Goals of Care Treatment and return to baseline level of function Disposition Probable return home Resuscitation Status Resuscitation Status: CPR: Attempt Resuscitation POLST Updates/Changes Previous POLST?: No POLST Review Outcome: No Change . Symptom management: Delirium Total time 80minutes; >50% face to face with patient and/or family, providing counselling regarding plans and recommendations, and in care coordination with his/her medical teams. This includes chart review, discussion with patient and with Willis and team. copies to: Alka Khoury MD; Sotero Vera MD; Valdo Horvath MD Palliative Brief Note Date of Service January 10, 2017 . 81 yo gentleman [address] by Dr[address] Khoury for his ESRD and HD and PCP Dr. Horvath in [place] who presented to the ER with abd pain. He had urinary retention and a CT of the abd noted a large R renal mass which is presumed malignant. It was noted 1-2 years ago but he apparently did not follow up He identifies that he has been on hemodialysis for 1-2 yrs and the cause of renal failure is kidney stones. Right now he does not recall much about what has been reviewed with him in the hospital. he does not know if he was seen by urology or renal. He knows he has a kidney mass but that we do not know if it is cancerous or not. He is not aware of the plan to do embolization tomorrow as noted in Dr. Eubanks' s note.he is thought to be too high a surgical risk for nephrectomy. Of note is CT angio notes significant renal artery stenosis on the R. O: comfortable in bed, urge to urinate but then forgets it tends to prefer to speak with his eyes closed. Can identify his sister Sue (whom he states accurately lives [address]) and his daughter Zack as his DPOAHC-"both of them" CN=, problem with short term memory as noted. States we are holding him against his will. OX2-aware of recent political events lungs clear COR RR, no edema Federica Landry MD January 10, 2017 17:06
--- NOTE | 2017-01-10 18:30 | PCM.PNMED ---
Subjective Date of Service January 10, 2017 Subjective Patient was seen and examined at bedside today. Patient denies any chest pain, shortness of breath, nausea, vomiting, diarrhea. The patient lives very ornery today and nursing stated that the patient seemed to have an increase in dementia today as the patient was not responding to questions appropriately. During my exam of the patient later today after dialysis the patient also was not answering questions appropriately and seemed to be very agitated more so than his usual. Overnight events: None Exam Vital Signs Vital Sign - Last Date Time Temp Pulse Resp B/P Pulse Ox O2 Delivery O2 Flow Rate FiO2 01/10/17 18:15 86 01/10/17 16:30 36.8 18 114/66 97 Room Air 01/10/17 04:47 3.00 Intake and Output 01/09/17 01/09/17 01/10/17 Cumulative From/Thru 15:00 23:00 07:00 01/05/17 17:22 - 01/10/17 04:47 Intake Total 2891 ml 400 ml 46809 ml Output Total 375 ml 500 ml 97778 ml Balance 2516 ml -100 ml 226 ml Intake Oral 940 ml 400 ml 3214 ml IV Total 1951 ml 7387 ml Output Urine Total 375 ml 500 ml 6975 ml Emesis 1400 ml Ultrafiltrate 2000 ml # Voids 7 # Bowel Movements 2 Exam Physical Exam: GEN: Patient was awake, alert, responding appropriately to questions HEENT: Pupils equal round and reactive to light, extraocular eye muscles intact , Neck soft supple, trachea midline, scalp lesions noted CV: +S1/S2, regular rate and rhythm, blowing systolic murmur auscultated Respiratory: CTAB, no wheezes, rales, rhonchi GI: +bowel sounds x4, soft, compressible, nontender to palpation EXT: no clubbing, cyanosis, edema Neuro: Cranial nerves II-XII grossly intact Psych: mood and affect were appropriate IVs and Medications Medications Reviewed: Medications were reviewed in detail Lab and Diagnostics Result Diagram: 01/10/1754401/10/17544 Assessment & Plan 81-year-old gentleman with a history of 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 -Currently no hematuria - Patient has restarted his aspirin and Plavix - Lake has been discontinued - We will continue to monitor hemoglobin Right renal mass, chronic - Seen on CT on admission, with findings suggestive of active bleeding - CT angiogram of abdomen and pelvis results pending - Embolization by interventional radiology to treat the right mass scheduled for tomorrow 01/11 at 11:30 in the morning - Nothing by mouth at midnight Pharyngitis -Cervical lozenges -Continue with soft foods and liquids -Continue to monitor -Possible barium esophagram if symptoms worsen Bladder spasms, acute, present on admission. Ongoing - Likely secondary to renal mass - Urine culture is negative - Valium proved to be too effective, and compromised his mentation and respiratory status; avoid - Continue pain control with IV medication and by mouth medications - Home urinary medications indicate hyoscyamine for bladder spasm, continued ESRD on HD, chronic. Presumed stable - Right fistula utilized; HD on , , - Dairy Nutrition Specialist: Dr. Khoury - Nephrology consult by Dr Strange done - Continued renal medications that were on reconciliation at time of admission: Renvela Dysphasia and dyspepsia -Speech consulted -Barium swallow study results pending -Downgrade patient's diet to clear liquids Coronary artery disease status post CABG, stent placement, chronic. Presumed stable - Continue statin, beta patricia - Imdur was prescribed at recent admission 04/2016, but does not appear on current medication list -Continue asa and plavix today History of AV re-entrant tachycardia s/p ablation, chronic. Presumed stable -Currently stable with heart rate 89 -Continue metoprolol 25 mg twice a day -Continue to monitor BPH, chronic. Presumed stable - Continue same medications Asthma, chronic. Presumed stable - Accu nebs as needed History of alcohol use, chronic. Presumed stable - Reports of whiskey daily - Monitor for signs and symptoms of withdrawal - Stable at this time - Banana bag given as precaution GERD, chronic. Presumed stable - Resume home PPI Goals of care - Patient stated that he wanted to "try" if anything were to happen to him but he does not wish for prolonged care - Encourage completion of POLST when patient is of clear mind - Palliative care consulted PRN: Fever/bowel/pain/nausea DVT: SCDs only at this time secondary to possibility of active bleeding renal mass GI: PPI Diet: Clear liquids CODE STATUS: Full code Patient status: The patient is scheduled tomorrow to have interventional radiology come in and do an embolization of the renal mass. We will discuss with patient to potentially be discharged to a detention facility as the patient does have some weakness and his mentation does not seem to be at baseline. After discussing with some of the patient's friends they also believe that the patient is unable to take care of himself at this time as well. We will continue to discuss with the patient after the procedure about possible discharge to a detention facility or home with home health. GI Prophylaxis: Proton Pump Inhibitor VTE Prophylaxis: SCDs VTE Mechanical Devices: Intermittant Pneumatic CD Resuscitation Status: CPR: Attempt Resuscitation Sania Blanco DO January 10, 2017 18:30
[2017-01-10] MEDS ORDERED: Benzocaine-Menthol Lozenge 2/Pkg PO PRN (18:35)
[2017-01-11 02:12] VITALS: BP 131/74; PULSE 131; RESP 18; O2SAT 96
[2017-01-11 03:07] LABS: APPEARANCE,URINE CLEAR (CLEAR,HAZY); COLOR,URINE STRAW (YELLOW); OCCULT BLOOD,URINE LARGE (NEGATIVE); PH,URINE 7.5 (5.0-8.0); UROBILINOGEN,URINE NORMAL (NORMAL)
--- NOTE | 2017-01-11 04:46 | NUR ---
Confusion/agitation/restraints On initial assessment, patient was agreeable and allowed for auscultation of heart and lungs. When I returned for the med pass, patient literally jumped out of bed and refused meds and went to the closet and got dressed. Patient repeatedly stated that he did not want me " killing him". Patient became combative and verbally aggressive. Patient threatened to hit me if I did not leave him alone. top former called to room. It was decided to let patient cool off for a time. Approximately one hour later, patient started to get up and wanted to leave AMA. Patient's sister and daughter were called and apprised of the situation. Dr. Manzano was paged and orders were given to use restraints if necessary. Patient pulled out IV and refuse to let me bandage arm. Again, patient threatened to strike at me. Security was called and patient was restrained. Patient has stated several times that we want to kill me. Patient stated that the surgery/procedure tomorrow will kill him. Sitter at window. java technical architect called to inform that patients HR has been between 150-180. Patient agreed to take metoprolol. Patient continues to be verbally abusive.
[2017-01-11 06:29] VITALS: BP 160/84; PULSE 107; RESP 18; O2SAT 92
[2017-01-11 08:10] LABS: Mean Corpuscular Hemoglobin 33.2 pg (27.0-35.0); Mean Corpuscular Volume 104.9 fL (81-100)
[2017-01-11] MEDS: Pantoprazole 40 mg ER24 Tablet PO SCH (08:30)
--- NOTE | 2017-01-11 09:15 | NUR ---
Restraints/sitter DC Restraints DC'd @ 5397 and Sitter Dc'd @ 6365
--- NOTE | 2017-01-11 10:30 | NUR ---
Agitation/aggression/violence Pt sleeping until 929, got up and dressed once sitter left. RN talked to pt. pt stated he wanted to leave. RN offered a walk in the [place], RN walking with pt he walked straight to the door, manager resource and PLANT MANAGER assisted in keeping the pt from going outside, Wanda Mendez called while waiting for more assistance pt swung at Spinner Operator and stomped on RNs foot, Security escorted Pt back to room, Hospitalist and Palliative care doctors attempted to talk to pt. Pt calmed down and lying in bed, daughter and son-in-law attempted to talk to pt. Pt stated "they have you brainwashed as well" Ativan ordered by MD pt adamantly refused any medication from RN stating "Put it up your own butt" and "I don't want you poisoning me" no medications given to pt this am. Pt made comments to Family and staff about how he has guns at home and we should just let him . Pt asked security to shoot him. Sitter watching pt. care continued.
[2017-01-11 10:31] VITALS: PULSE 91
--- NOTE | 2017-01-11 14:56 | NUR ---
Social Work: Mental Health Evaluation: Reason for Hospital visit: Pt is a 81 y/o male who was admitted on 01/05/17 for severe abd pain per H&P. Pt has been being treated at the hospital and per MD pt is now medically cleared. NOAH updated by palliative Care MD (see note) that during assessment today pt informed her that he has firearms at home and plans to shoot himself in the head when he leaves. Per family, pt is not at his baseline (see attached affidavit). NOAH met with pt at bedside to further discuss, SW role explained. Upon entering the room, pt is very aggressive stating that he does not want to speak with SW and said to get the hell out Pt is alert and oriented x2. SW explained that SW needed to discuss the statements that pt made to the MD and that we are concerned about his safety. SW explained to pt that he informed MD that he would shoot himself in the head. Pt states he cannot confirm or deny any of these statements. SW asked pt if he was currently feeling suicidal or if he left the hospital he would harm himself. Pt informed SW that he is not currently feeling this way, but he has the right to harm himself once he gets home. Pt continues to tell SW that he does not want to speak any further and does not want to answer any more questions. NOAH spoke with pts daughter Zack who states that per friend report pt has been making statements about shooting himself at home and wanting to end it all for some time now. Daughter states they have concerns for pts safety and feel like he will attempt someone if he does go home. Pt does have access to firearms at home. Per RN report, pt also stating that he wants security to shoot him in his room and that he just wants to . Pt refusing to take medications because staff mine warfare officer is trying to poison him Current Mental status/ADLs: Upon entering room, pt up getting dressed at beside. Pt is alert and oriented x2. Pt is very agitated and aggressive, not wanting to speak with SW. Pt making minimal eye contact and very vague in response. Psychiatric history/treatment: Pt has no history and is unwilling to discuss. Chemical dependency history: Pt unwilling to discuss. Legal history/assaultive behavior: Pt unwilling to discuss. Disposition/ plan: At this pt is not safe to return home. Pt poses an immediate risk to himself at this time. Patient currently denies suicidal ideation, but does confirm that he has the right to shoot himself when he leaves the hospital. Pt has made statements about wanting to shoot himself when he leaves. Pt unwilling to engage in less restrictive options with SW and is unwilling to engage in safety planning with SW and is not cooperative. Pt is not willing to seek voluntary treatment. Pts family has concerns about pts safety at home and states he has made statements about shooting himself before( see attached affidavit) NOAH staffed case with MAIN ENTREE COOK AND CASHIER preparation supervisor and MD and determination has been made to dispatch [facility]. confirms pt is medically stable for discharge. NOAH called [facility] to dispatch. NOAH will continue to follow. GAURAV Nichols
--- NOTE | 2017-01-11 16:15 | NUR ---
[facility] Kamran has arrived to see pt. Packet provided. SW updated EDMSW about pt. [facility] to call [facility]MSW when evaluation is completed. GAURAV Nichols
--- NOTE | 2017-01-11 16:42 | PCM.PNMED ---
Subjective Date of Service January 11, 2017 Subjective Patient was seen and examined at bedside today. Patient denies any chest pain, shortness of breath, nausea, vomiting, diarrhea. The patient was very calm and resting quietly in bed and had no further complaints. The patient stated that he knew that he was going in for procedure today and had no complaints at the time of the exam. However 10 minutes later the patient tried to escape from the floor. A code quiroga was called and security came to assist with bringing the patient back into his room. At this time the patient then started to excuse the hospital trying to kill him and wanting to slit his throat. When the patient was reminded that he had a procedure today he denied that that he had a procedure today and stated that his procedure was not until Monday. The patient was informed that today was Monday and then he decided that he did not want the procedure secondary to the fact that he thought the hospital and doctors were trying to kill him. The patient's daughter showed up and was present during this episode and she explained to her father that he was to have a procedure today, he then started to excuse her of being "programmed" by the Hospital and she was also trying to kill him as well. Palliative care was present during this episode and also try to reason with the patient however he then stated that we should "just kill him now" and when it was explained to him that that is now we do here at this hospital he stated that he will go home and shoot himself in the head. The patient has had a significant change in mentation starting yesterday. The patient did not recognize me and did not realize that I was his physician whereas days previous he knew that I was his physician. I have been treating the patient for the last 4 days. At this time due to the fact that the patient has had a significant change in mentation I do not feel that he is safe to return home and I do feel that he is a danger to both himself and the community. The patient still has a vehicle and drives and he does own guns and the family is not willing to remove them from the home. [facility] was called, as the patient is currently detained, for placement. At this time it would be recommended that the patient be placed on some psychotropic medications to help him go back to his normal baseline mentation as this may help him to make more sound judgments/decisions. The patient currently has what looks to be a renal cell carcinoma and is currently on dialysis. The patient is not a good surgical candidate and at this time it seems that the patient would be best to discontinue dialysis and go home on hospice. The patient is refusing to discontinue dialysis at this time and therefore he is no longer a hospice candidate. The patient is currently not in any remove line to make any good clinical decisions or good life decisions and once his mentation is clear then he should be able to make his own medical decisions once again. This plan was discussed at length with palliative care (Dr. Federica Landry) a long with his daughter and son-in-law. Exam Vital Signs Vital Sign - Last Date Time Temp Pulse Resp B/P Pulse Ox O2 Delivery O2 Flow Rate FiO2 01/11/17 10:31 91 01/11/17 06:29 37.0 18 160/84 92 Room Air 01/11/17 02:12 2.00 Intake and Output 01/10/17 01/10/17 01/11/17 Cumulative From/Thru 14:59 22:59 06:59 01/05/17 17:22 - 01/11/17 06:31 Intake Total 480 ml 0 ml 44542 ml Output Total 600 ml 426 ml 478 ml 08821 ml Balance -600 ml 54 ml -478 ml -798 ml Intake Oral 480 ml 0 ml 3694 ml IV Total 7387 ml Output Urine Total 425 ml 478 ml 7878 ml Urine/Stool Mix 1 ml 1 ml Emesis 1400 ml Ultrafiltrate 600 ml 2600 ml # Voids 1 8 # Bowel Movements 2 4 Exam Physical Exam: GEN: Patient was awake, alert HEENT: Pupils equal round and reactive to light, extraocular eye muscles intact , Neck soft supple, trachea midline, nomocephalic/atraumatic CV: +S1/S2, regular rate and rhythm, blowing systolic murmur auscultated Respiratory: Positive crackles in the basilar lungs, no wheezes, rales, rhonchi GI: +bowel sounds x4, soft, compressible, nontender to palpation EXT: no clubbing, cyanosis, edema Neuro: Cranial nerves II-XII grossly intact Psych: mood and affect were extremely agitated IVs and Medications Medications Reviewed: Medications were reviewed in detail Lab and Diagnostics Result Diagram: 01/11/17 0800 01/11/17 0800 Assessment & Plan 81-year-old gentleman with a history of ESRD on HD with production of urine, coronary artery disease status post CABG + PCI 2 stents, nephrolithiasis s/p lithotripsy, hyperlipidemia, and history of alcohol abuse, that presented to the emergency department with acute on chronic urinary retention with associated suprapubic abdominal cramping, abdominal distention, and right-sided flank pain Anemia secondary to Hematuria, urinary retention, and suprapubic tenderness, acute, present on admission. -Currently no hematuria - Patient has restarted his aspirin and Plavix - Lake has been discontinued - We will continue to monitor hemoglobin Right renal mass, chronic - Seen on CT on admission, with findings suggestive of active bleeding - CT angiogram of abdomen and pelvis results pending - Embolization has been discontinued secondary to patient request Pharyngitis -Cervical lozenges -Continue with soft foods and liquids -Continue to monitor -Possible barium esophagram if symptoms worsen Bladder spasms, acute, present on admission. Ongoing - Likely secondary to renal mass - Urine culture is negative - Valium proved to be too effective, and compromised his mentation and respiratory status; avoid - Continue pain control with IV medication and by mouth medications - Home urinary medications indicate hyoscyamine for bladder spasm, continued ESRD on HD, chronic. Presumed stable - Right fistula utilized; HD on - Landscaping Specialist: Dr. Khoury - Nephrology consult by Dr Strange done - Continued renal medications that were on reconciliation at time of admission: Renvela Dysphasia and dyspepsia -Speech consulted -Barium swallow study results pending -Downgrade patient's diet to clear liquids Coronary artery disease status post CABG, stent placement, chronic. Presumed stable - Continue statin, beta patricia - Imdur was prescribed at recent admission 04/2016, but does not appear on current medication list -Continue asa and plavix today History of AV re-entrant tachycardia s/p ablation, chronic. Presumed stable -Currently stable with heart rate 89 -Continue metoprolol 25 mg twice a day -Continue to monitor BPH, chronic. Presumed stable - Continue same medications Asthma, chronic. Presumed stable - Accu nebs as needed History of alcohol use, chronic. Presumed stable - Reports of whiskey daily - Monitor for signs and symptoms of withdrawal - Stable at this time - Banana bag given as precaution GERD, chronic. Presumed stable - Resume home PPI Goals of care - Patient stated that he wanted to "try" if anything were to happen to him but he does not wish for prolonged care - Encourage completion of POLST when patient is of clear mind - Palliative care consulted PRN: Fever/bowel/pain/nausea DVT: SCDs only at this time secondary to possibility of active bleeding renal mass GI: PPI Diet: Clear liquids CODE STATUS: Full code Disposition: The patient is currently being detained secondary to the fact that he is a danger to both himself and others. [facility] has been contacted and are following. GI Prophylaxis: Proton Pump Inhibitor VTE Prophylaxis: SCDs VTE Mechanical Devices: Intermittant Pneumatic CD Resuscitation Status: CPR: Attempt Resuscitation Time spent Greater than 1 hour Sania Blanco DO January 11, 2017 16:42
[2017-01-11 17:40] VITALS: BP 164/93; PULSE 129; RESP 17; O2SAT 95
--- NOTE | 2017-01-11 18:06 | PCM.DIMED ---
Discharge Instructions Date of Service January 11, 2017 Dates of Hospitalization Jan 05, 2017 at 21:27 Discharge Diagnosis Discharge Diagnosis Altered mental status Anemia secondary to hematuria Right renal mass Pharyngitis Bladder spasms End-stage renal disease on hemodialysis Dysphagia and dyspepsia CAD status post CABG History of AV reentrant tachycardia status post ablation Asthma History of chronic alcohol use GERD Diet Renal Diet Activity Other (DO NOT DRIVE) Call your provider Fever or Chills, Shortness of breath, Chest pain, Weakness (unilateral) Patient Instructions Patient is to be discharged home in the care/supervision of his family who will supervise and support the patient. They should follow up with outpatient mental health consult ([facility]) is recommended. If other medical needs, in addition to in-home supports/evaluations ([facility]) are needed or if the patient seems to be unable to follow directions, unwilling to take his medications as prescribed, or seems to be a danger to both himself or others please call 911 or the crisis hotline ( ) and return to the hospital immediately. Follow-up plan The family states that they will monitor the patient for any changes in behavior. They will periodically test the patient to see if he is able to follow commands to see us if he is able to safely operate any of his tools that he has at home. It has been recommended against the patient driving however the family states that they will make that decision based on the patient's day- to-day mental status. Please follow up with dialysis regularly scheduled appointment. Follow-up Provider: Valdo Horvath MD Follow-up with PCP in: 1 week (if an appointment has not been made please call to schedule an appointment) Follow-up in: 1 week (please call to schedule an appointment with psychiatry [facility] [address] [place] [address] ) Sania Blanco DO January 11, 2017 18:06
--- NOTE | 2017-01-11 18:15 | PCM.DC.MED ---
Discharge Summary Date of Service January 11, 2017 Dates of Hospitalization Date of Hospital Admission Jan 05, 2017 at 21:27 Date of Discharge: January 11, 2017 Providers: Admitting Physician: Roxie Briceno DO Primary Care Physician: Valdo Horvath MD Attending Physician: Roxie Briceno DO Diagnosis at Time of Discharge Diagnosis at Time of Discharge Altered mental status Anemia secondary to hematuria Right renal mass Pharyngitis Bladder spasms End-stage renal disease on hemodialysis Dysphagia and dyspepsia CAD status post CABG History of AV reentrant tachycardia status post ablation Asthma History of chronic alcohol use GERD Brief History Per admission H&P: 81-year-old gentleman with a history of ESRD on HD with production of urine, coronary artery disease status post CABG + PCI 2 stents, nephrolithiasis, hyperlipidemia, and history of alcohol abuse, that presented to the emergency department with acute on chronic urinary retention with associated suprapubic abdominal cramping, abdominal distention, and right-sided flank pain; he was seen 2 days prior to this admission for similar symptoms and was discharged with a catheter. He returns today for ongoing symptom management secondary to worsening of presenting symptoms. CT KUB on admission revealed a large heterogeneous enhancing of his right renal mass, suggestive of renal cell carcinoma with hemorrhage versus large hemorrhagic cyst. He was admitted for evaluation and treatment of his symptoms and the CT findings. Hospital day 1 Mr. Castro is a poor historian, which is complicated by the recent administration of Valium while in the emergency department. This made it extremely difficult to extract any details about his past medical history. He was able to endorse his abdominal pain, with his associated right flank pain. He denied any fever, chills, nausea, vomiting, shortness of breath, chest pain. He first stated his location as [place], [place], and when asked the date, he replied that he "knows where he is." He was later able to accurately state that he was in [place], but his response was unrelated to the current question at hand. He states his urinary symptoms have been ongoing over the recent months. He states he has missed his most recent 2 dialysis sessions, but the details are unclear, he is followed by Dr. Khoury. When asked if he knew why he was here, he did accurately state that he is aware that he has a right-sided renal finding which might be "bleeding, or causing clots." His lucidity waxed and waned throughout the interview. In the ED, initial vitals included T 35.9, pulse 98, respiratory rate 18, blood pressure 92/56, 94% on room air; after the administration of Valium, his respiratory rates were noted to drop into the 80s despite supplemental oxygen therapy. He was arousable. Initial lab findings revealed WBC 8.3, hemoglobin 11.3, platelets 235, BUS 48, creatinine 7.56, LFTs within range; UA was ordered and collected, results pending at time of admission. Initial therapies included Dilaudid 0.5 mg, Valium [address] KUB revealed large heterogeneous enhancement of the right renal mass which is suggestive of renal cell carcinoma with hemorrhage or large hemorrhagic cyst , in addition to that finding bilateral renal cysts, small bilateral nonobstructing renal stones were also seen without any evidence of hydronephrosis, coronary vasculature was noted to be atherosclerotic. The large heterogeneous enhancing mass measured 7.6 x 10.3 x 7.6 cm within the right kidney. Multiple stones were noted, nonobstructing, measured at 2, 3, and 4 mm. The bladder wall thickness was noted to be normal, and there were no calcified bladder stones observed. The ED contacted the on-call urologist, who has kindly agreed to consult on the patient. The patient was in stable condition awaiting transfer [place] [facility] Palliative medicine was consulted to assist with determination of goals of care. Prior to visiting, I reviewed his records in the EMR in detail, both for this admission and previous admissions. Also spoke with his bedside nurse. On my arrival, he had just returned from radiology, where he underwent CT angiography as well as barium swallow. Results of these studies are pending. He tells me that he feels well. No further suprapubic pain or spasms. He denies other symptoms or distress. We discussed the problems he had been having that led to this admission and reviewed his understanding of his present diagnoses and treatment plans. Also reviewed his social history, plans and goals for the future, current living situation etc. He notes that he is anxious to get out of the hospital before Monday because he has an appointment to see a rice field worker for treatment of skin cancer/actinic keratoses of his scalp. Hospital Course 81-year-old gentleman with a history of ESRD on HD with production of urine, coronary artery disease status post CABG + PCI 2 stents, nephrolithiasis s/p lithotripsy, hyperlipidemia, and history of alcohol abuse, that presented to the emergency department with acute on chronic urinary retention with associated suprapubic abdominal cramping, abdominal distention, and right-sided flank pain The family feels that the patient is now back to his normal baseline mentation status and would like to take patient home. The patient's daughter and son-in- law( Zack and Kolton Hammond) state that they will take the patient home and they will be responsible for him and his current actions. They state that all the guns have been removed from the home and they will test the patient cognitively to ensure that he remains safe in the home and is not a danger to others. The patient does drive 21 miles to dialysis and it has been recommended against the patient driving. The family states that they will reassess the patient to ensure that he is safe with operating his stools at home and is able to participate in his own activities of daily living. At this time the patient's family states that they will take full responsibility of the patient and they will ensure that he follows up at his regular doctor's appointment along with a psychiatric follow-up. [facility] was present during this interview and agree that since the family is willing to take the patient home and be responsible for him and his actions and they will continue to monitor him that he should be discharged home in their care. Patient is to be discharged home in the care/supervision of his family who will supervise and support the patient. They should follow up with outpatient mental health consult ([facility]) is recommended. If other medical needs, in addition to in-home supports/evaluations ([facility]IN) are needed or if the patient seems to be unable to follow directions, unwilling to take his medications as prescribed, or seems to be a danger to both himself or others please call 911 or the crisis hotline ( ) and return to the hospital immediately. Follow-up plan The family states that they will monitor the patient for any changes in behavior. They will periodically test the patient to see if he is able to follow commands to see us if he is able to safely operate any of his tools that he has at home. It has been recommended against the patient driving however the family states that they will make that decision based on the patient's day- to-day mental status. This mornings events leading to a DMHP consult: Patient was seen and examined at bedside today. Patient denies any chest pain, shortness of breath, nausea, vomiting, diarrhea. The patient was very calm and resting quietly in bed and had no further complaints. The patient stated that he knew that he was going in for procedure today and had no complaints at the time of the exam. However 10 minutes later the patient tried to escape from the floor. A code junaid was called and security came to assist with bringing the patient back into his room. At this time the patient then started to excuse the hospital trying to kill him and wanting to slit his throat. When the patient was reminded that he had a procedure today he denied that that he had a procedure today and stated that his procedure was not until Monday. The patient was informed that today was Monday and then he decided that he did not want the procedure secondary to the fact that he thought the hospital and doctors were trying to kill him. The patient's daughter showed up and was present during this episode and she explained to her father that he was to have a procedure today, he then started to excuse her of being "programmed" by the Hospital and she was also trying to kill him as well. Palliative care was present during this episode and also try to reason with the patient however he then stated that we should "just kill him now" and when it was explained to him that that is now we do here at this hospital he stated that he will go home and shoot himself in the head. The patient has had a significant change in mentation starting yesterday. The patient did not recognize me and did not realize that I was his physician whereas days previous he knew that I was his physician. I have been treating the patient for the last 4 days. At this time due to the fact that the patient has had a significant change in mentation I do not feel that he is safe to return home and I do feel that he is a danger to both himself and the community. The patient still has a vehicle and drives and he does own guns and the family is not willing to remove them from the home. called, as the patient is currently detained, for placement. At this time it would be recommended that the patient be placed on some psychotropic medications to help him go back to his normal baseline mentation as this may help him to make more sound judgments/decisions. The patient currently has what looks to be a renal cell carcinoma and is currently on dialysis. The patient is not a good surgical candidate and at this time it seems that the patient would be best to discontinue dialysis and go home on hospice. The patient is refusing to discontinue dialysis at this time and therefore he is no longer a hospice candidate. The patient is currently not in any remove line to make any good clinical decisions or good life decisions and once his mentation is clear then he should be able to make his own medical decisions once again. This plan was discussed at length with palliative care (Dr. Federica Landry) along with his daughter and son-in-law (Zack and Jj Hammond). Full hospital course while admitted: Anemia secondary to Hematuria, urinary retention, and suprapubic tenderness, acute, present on admission. -Currently no hematuria - Patient has restarted his aspirin and Plavix - Lake has been discontinued - We will continue to monitor hemoglobin Right renal mass, chronic - Seen on CT on admission, with findings suggestive of active bleeding - CT angiogram of abdomen and pelvis results pending - Embolization has been discontinued secondary to patient request Pharyngitis -Cervical lozenges -Continue with soft foods and liquids -Continue to monitor -Possible barium esophagram if symptoms worsen Bladder spasms, acute, present on admission. Ongoing - Likely secondary to renal mass - Urine culture is negative - Valium proved to be too effective, and compromised his mentation and respiratory status; avoid - Continue pain control with IV medication and by mouth medications - Home urinary medications indicate hyoscyamine for bladder spasm, continued ESRD on HD, chronic. Presumed stable - Right fistula utilized; HD on , , - Endband Cutter Hand: Dr. Khoury - Nephrology consult by Dr Strange done - Continued renal medications that were on reconciliation at time of admission: Renvela Dysphasia and dyspepsia -Speech consulted -Barium swallow study results pending -Downgrade patient's diet to clear liquids Coronary artery disease status post CABG, stent placement, chronic. Presumed stable - Continue statin, beta patricia - Imdur was prescribed at recent admission 04/2016, but does not appear on current medication list -Continue asa and plavix today History of AV re-entrant tachycardia s/p ablation, chronic. Presumed stable -Currently stable with heart rate 89 -Continue metoprolol 25 mg twice a day -Continue to monitor BPH, chronic. Presumed stable - Continue same medications Asthma, chronic. Presumed stable - Accu nebs as needed History of alcohol use, chronic. Presumed stable - Reports of whiskey daily - Monitor for signs and symptoms of withdrawal - Stable at this time - Banana bag given as precaution GERD, chronic. Presumed stable - Resume home PPI Goals of care - Patient stated that he wanted to "try" if anything were to happen to him but he does not wish for prolonged care - Encourage completion of POLST when patient is of clear mind - Palliative care consulted PRN: Fever/bowel/pain/nausea DVT: SCDs only at this time secondary to possibility of active bleeding renal mass GI: PPI Diet: Clear liquids CODE STATUS: Full code Disposition: The patient is currently being detained secondary to the fact that he is a danger to both himself and others. [facility] has been contacted and are following. Exam Vital Signs (Last) Date Time Temp Pulse Resp B/P Pulse Ox O2 Delivery O2 Flow Rate FiO2 01/11/17 17:40 36.9 129 17 164/93 95 Room Air 01/11/17 02:12 2.00 Exam Physical Exam: GEN: Patient was awake, alert HEENT: Pupils equal round and reactive to light, extraocular eye muscles intact , Neck soft supple, trachea midline, nomocephalic/atraumatic CV: +S1/S2, regular rate and rhythm, blowing systolic murmur auscultated Respiratory: Positive crackles in the basilar lungs, no wheezes, rales, rhonchi GI: +bowel sounds x4, soft, compressible, nontender to palpation EXT: no clubbing, cyanosis, edema Neuro: Cranial nerves II-XII grossly intact Psych: mood and affect were extremely agitated Test 01/05/17 19:10 01/05/17 22:15 01/06/17 05:45 01/09/17 06:17 Prothrombin Time 9.8sec (8.1-12.5) Prothromb Time International Ratio 0.92ratio Hold Mendez Top Tube Received (Received) Urine Ictotest Positive (Negative) Neutrophils (%) (Auto) 44.1% (40-74) Lymphocytes (%) (Auto) 32.2% (14-46) Monocytes (%) (Auto) 9.4% (4-12) Eosinophils (%) (Auto) 13.2% (0-5) Basophils (%) (Auto) 0.9% (0-3) Hold Purple Top Tube Received (Received) Hold Timewell Top Tube Received (Received) Phosphorus Level 4.7mg/dL (2.5-4.9) Test 01/11/17 02:30 01/11/17 08:00 Urine Color Straw (YELLOW) Urine Appearance Clear (CLEAR,HAZY) Urine pH 7.5 (5.0-8.0) Urine Specific [place] 1.009 (1.003-1.035) Urine Protein 30mg/dL (NEG,TRACE) Urine Glucose (UA) 100mg/dL (NEGATIVE) Urine Ketones Tracemg/dL (NEGATIVE) Urine Occult Blood Large (NEGATIVE) Urine Nitrite Negative (NEGATIVE) Urine Bilirubin Negative (NEGATIVE) Urine Urobilinogen Normalmg/dL (NORMAL) Urine Leukocyte Esterase Trace (NEGATIVE) Urine RBC 11-50/hpf (0-2) Urine WBC 6-10/hpf (0-5) Urine Epithelial Cells Occasional/hpf (NONE-MOD) Urine Crystals None seen (NONE SEEN) Urine Bacteria Moderate/hpf (NONE-FEW) Urine Hyaline Casts None/lpf (NONE) Urine Granular Casts None seen (NONE SEEN) Urine Waxy Casts None seen (NONE SEEN) Urine Red Blood Cell Casts None seen (NONE SEEN) Urine White Blood Cell Casts None seen (NONE SEEN) Urine Mucus None seen (None Seen) Urine Trichomonas None seen (NONE SEEN) Urine Yeast None (NONE SEEN) Urinalysis Comment None Urine Culture Reflexed Indicated Hold Urine Received (Received) Urine Opiates Screen Negative Urine Methadone Screen Negative Urine Barbiturates Screen Negative Urine Amphetamines Screen Negative Urine Benzodiazepines Screen Negative Urine Cocaine Metabolite Screen Negative Urine Cannabinoids Screen Negative White Blood Count 3.8th/mm3 (3.8-10.1) Red Blood Count 2.86mil/mm3 (4.40-5.80) Hemoglobin 9.5g/dL (13.8-17.2) Hematocrit 30.0% (41.0-50.0) Mean Corpuscular Volume 104.9fL (81-100) Mean Corpuscular Hemoglobin 33.2pg (27.0-35.0) Mean Corpuscular Hemoglobin Concent 31.7% (32.0-37.0) Red Cell Distribution Width 12.6% (12.3-15.4) Platelet Count 191bil/L (150-400) Sodium Level 140mEq/L (134-144) Potassium Level 4.0mEq/L (3.5-5.2) Chloride Level 103mEq/L (97-108) Carbon Dioxide Level 23mmol/L (18-29) Blood Urea Nitrogen 14mg/dL (8-27) Creatinine 3.78mg/dL (0.76-1.27) Estimat Glomerular Filtration Rate 16mL/min (>59) Glucose Level 97mg/dL (60-99) Calcium Level 9.3mg/dL (8.5-10.1) Total Bilirubin 0.3mg/dL (0.0-1.2) Aspartate Amino Transf (AST/SGOT) 21U/L (0-50) Alanine Aminotransferase (ALT/SGPT) 17U/L (0-44) Alkaline Phosphatase 52U/L (25-160) Total Protein 5.3g/dL (6.4-8.4) Albumin 3.3g/dL (3.4-5.0) Discharge Medications Discharge Medications Aspirin (Aspirin) 81 Mg Tablet 81 MG PO QAM (Reported) Atorvastatin Calcium (Atorvastatin Calcium) 80 Mg Tablet 80 MG PO HS (Reported) Calcitriol (Rocaltrol) 0.25 Mcg Capsule 0.5 MCG PO QAM (Reported) Cholecalciferol (Vitamin D3) (Vitamin D3) 2,000 Unit Tablet 2,000 UNIT PO QAM ( Reported) Clopidogrel Bisulfate (Plavix) 75 Mg Tablet 75 MG PO QAM (Reported) Finasteride (Finasteride) 5 Mg Tablet 5 MG PO QAM (Reported) Lysine (Lysine) 1,000 Mg Tablet 1,000 MG PO QAM (Reported) Metoprolol Tartrate (Metoprolol Tartrate) 25 Mg Tablet 25 MG PO QAM (Reported) Omeprazole (Omeprazole) 20 Mg Capsule.dr 20 MG PO QAM (Reported) Sennosides (Senna) 8.6 Mg Tablet 8.6 MG PO QAM (Reported) Sevelamer Carbonate (Renvela) 800 Mg Tablet 800 MG PO TIDWM (Reported) Sodium Bicarbonate (Sodium Bicarbonate) 325 Mg Tablet 650 MG PO TID (Reported) Tamsulosin ER (Tamsulosin ER) 0.4 Mg Cap.er.24h 0.4 MG PO HS (Reported) Torsemide (Torsemide) 20 Mg Tablet 40 MG PO QAM (Reported) As needed Albuterol HFA (Proair HFA) 8.5 Gm Hfa.aer.ad 2 PUFFS INHALATION Q4H PRN PRN For Shortness of Breath (Reported) Diltiazem (Diltiazem) 30 Mg Tablet 30 MG PO QID PRN PRN palpitations Prescribed by: GIUSEPPE HERNANDEZ MD Fluticasone Propionate (Fluticasone Propionate Nasal) 16 Gm Beecher.susp 1 SPRAY NASAL DAILY PRN PRN For Congestion (Reported) Hyoscyamine (Hyoscyamine) 0.125 Mg Tablet 0.125 MG PO Q4H PRN PRN BLADDER SPASMS (Reported) Nitroglycerin SL (Nitrostat) 0.4 Mg Tablet 0.4 MG SL Q5MIN PRN PRN For Chest Pain Prescribed by: EDISON CALDERON MD Oxycodone HCl/Acetaminophen (Endocet 10-325 mg Tablet) 1 Each Tablet 1-2 EACH PO Q4H PRN PRN For Pain (Reported) Triamcinolone Acet (Triamcinolone Acetonide Ointment) 1 Applic/0.25 Gm Oint 1 APPLIC TOP BID PRN PRN RASH (Reported) Followup Plan Follow-up plan The family states that they will monitor the patient for any changes in behavior. They will periodically test the patient to see if he is able to follow commands to see us if he is able to safely operate any of his tools that he has at home. It has been recommended against the patient driving however the family states that they will make that decision based on the patient's day- to-day mental status. Please follow up with dialysis regularly scheduled appointment. Discharge Diet: Renal Diet Discharge Activity: Other (DO NOT DRIVE) Patient Instructions Patient is to be discharged home in the care/supervision of his family who will supervise and support the patient. They should follow up with outpatient mental health consult ([facility]) is recommended. If other medical needs, in addition to in-home supports/evaluations ([facility]DIN) are needed or if the patient seems to be unable to follow directions, unwilling to take his medications as prescribed, or seems to be a danger to both himself or others please call 911 or the crisis hotline ( ) and return to the hospital immediately. Follow-up Provider: Valdo Horvath MD Follow-up with PCP in: 1 week (if an appointment has not been made please call to schedule an appointment) Follow-up in: 1 week (please call to schedule an appointment with psychiatry [address] [id number] ) Time spent Greater than 1 hour copies to: Valdo Horvath MD, Precious L DO January 11, 2017 18:15
--- NOTE | 2017-01-11 18:23 | PCM.PALLBR ---
Palliative Care Recommendation 81-year-old gentleman with complex medical history, admitted with abdominal pain and finding of large renal mass (probably renal CA)- now scheduled for embolization procedure on 01/11/17 as his health overall is felt to be too tenuous to allow major surgery. 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 Reviewed with Dr. Holder who identifies that embolization is possible but would be difficult in this patient due to significant renal artery stenosis. He also states that there may be potential discomfort related to the procedure. Reviewed with Dr. Dave-with the thought that this is not likely to be a curable process and embolization would he primarily to minimize bleeding. He presently is not having significant hematuria and the benefits of embolization at this time would be low. Most likely course of this mass is progression and may eventually cause his . He is not a surgical candidate and embolization would not be for cure. Decision today is to cancel embolization with a goal of stabilizing the patient's mental status. Delirium-getting worse possibly due to hospitalization unclear if any possibility of alcohol withdrawal. He certainly has metabolic potential causes. At this point would be difficult to even dialyze him. Based on some of his statements it is believed that he is not safe to be discharged to home. Management of his environment as far as access to guns as well as general safety with his delirium will need some time to coordinate.. CODE STATUS reviewed with his daughter who states that he was quite adamant at the beginning of dialysis to be a DO NOT RESUSCITATE. She is now active DURABLE POWER OF EDITOR MANAGING NEWSPAPER for health care due to his delirium and CODE STATUS is changed accordingly. Will need POLST completed 01/10/17-Pain adequately controlled-no complaint of spasms. Renal mass- presumed cancer. Planned for embolization 01/11/17 Reviewed with both Sue Wagner sister ([phone]) and Zack Hammond- daughter ([phone] and cell [phone]) about clinical course and recommendations to date. Zack chavez has been estranged for yrs and only recently back into some communications. He has not had any discussions re GOC/ EOL philosophies. She has no idea if DPOAHC/AD is on paper somewhere. It sounds like he has been fairly astute, managing his own affairs up to this point. Mild delirium-suspect due to severity of ds, comorbidities- age, ESRD, ASVD and hx ETOH abuse. Right now I would question his decisional capacity but I think this needs to be judged day to day.His daughter works and will not come up unless necessary but can be reached at the above # When mental clarity better-I believe code status could use more discussion in that expected outcome would be likely very poor if he survived at all based on his comorbidities-ESRD, malignancy, ASVD etc. -Symptom management (Pain/other)- comfortable at this time. Adequate pain relief with oral oxycodone. No other significant symptoms. Continued management per hospitalist. Symax (hyoscyamine) and B+O suppos. ordered for bladder spasms but hasn't needed since 01/07. -DPOA/Advanced Directives/POLST- says that his daughter Zack and sister Sue are his POAs (he cannot remember if they do this jointly or one is prioritized) . He also says that he has completed an advanced directive; we do not have copies of any of this paperwork. Today, when I reviewed his advanced care issues, he said that he certainly would want to be resuscitated, but he would not want to be kept alive "if I am a drooling vegetable". He remains full code at this time. -Family/emotional support- sounds like he has excellent support network with friends and family. Palliative medicine will continue to follow. Patient Goals: 1. Patient wants to be told the truth about his illness, even if it is unpleasant. 2. Patient would like to be told prognosis when it can be predicted, to better guide treatment decisions. He says that he realizes he will some time, but he does not know what from, and for now he still has a lot of things that he enjoys doing. Additional Medical Diagnoses with primary management by Hospitalist team include : Hematuria, urinary retention, and suprapubic tenderness, acute, present on admission. Right renal mass, chronic Bladder spasms, acute, present on admission. Ongoing ESRD on HD, chronic. Presumed stable Coronary artery disease status post CABG, stent placement, chronic. Presumed stable History of AV re-entrant tachycardia s/p ablation, chronic. Presumed stable BPH, chronic. Presumed stable Asthma, chronic. Presumed stable History of alcohol use, chronic. Presumed stable GERD, chronic. Presumed stable Problems: End of Life Preferences As above Goals of Care Treatment and return to baseline level of function Disposition Probable return home Resuscitation Status Resuscitation Status: DNR/DNI:Do Not Resuscitate/Intubate POLST Updates/Changes Previous POLST?: No Artificially Admin Nutrition: No Artifical Nutrition by Tube . Advanced Care Planning Address: Code status change Symptom management: Agitation, Delirium Total time 70 minutes; >50% face to face with patient and/or family, providing counselling regarding plans and recommendations, and in care coordination with his/her medical teams. I also spent an additional [ ] minutes counseling for advanced care planning with the patient/the patients family/the surrogate decision maker. Palliative Brief Note Date of Service January 11, 2017 . Case reviewed with Francis Owusu Anan 81-year-old gentleman who has lived independently and according to family without much cognitive impairment on chronic hemodialysis for the past year who presented to the ER due to significant abdominal pain and urgency to urinate. He is CT scan that noted a large right renal mass suspicious for renal cell CA. He was dialyzed yesterday and plan was to consider embolizing his mass today in that he was deemed too high risk for surgical intervention. He has had increasing agitation and suspicion which seemed to have started yesterday. He attempted to leave the hospital this morning on his own accord. He had threatened to use his gun to "end it all". See social services specialist's note regarding difficulty in assessment of true suicidality. Discussion with his sister yesterday and today with his daughter, patient appeared to have minimal cognitive impairment evident. His daughter was somewhat estranged from him until relatively recently. She acknowledges that he has a number of guns at his house and she is concerned that he would be very angry at removal of them. He is a and she is unclear as to his resources insurance etc. She does state that a year ago when he was placed on dialysis that he had said he had had a good life and was ready to and would not want further aggressive interventions passed the dialysis. He communicated to her that he would want DO NOT RESUSCITATE status although she is unclear if any of this was written down. O: He has some reasoning ability able to recognize that his sitter will call for support when he tries to exit the room at which point he is willing to sit down. He is able to have some discussion although he is suspicious/paranoid and definitely agitated. I do not believe he has the ability to deal with complex decisions/that at this time he does not have decisional capacity. He is fairly barrel chested lungs relatively clear. He apparently had tachycardia last evening He has a narrow-based gait moderately unstable. No tremor is evident Federica Landry MD January 11, 2017 18:23
--- NOTE | 2017-01-11 19:38 | NUR ---
Discharge Pt left with family in stable condition with all belongings at 1830, registration specialist went over discharge paperwork with pt and family. Pt had already pulled out IV earlier today.
--- NOTE | 2017-01-12 13:20 | NUR ---
Social Work Note- t/c from Palliative Care, concern pt coordination at [facility]. Pt followed there by Dr. Khoury. t/c to hospitalist, requested D/c have Dr. Khoury cc'd for continuity of care. ANIRUDH Dominique
--- NOTE | 2017-02-08 14:16 | NUR ---
Palliative care note D/A: Phone call to pt dtr Zack (h [phone] and cell [phone].) Zack lives in [place] which is also where pt sister Sue Wagner lives .) Per chart notes- both Zack and Sue are pt's DPOA's. Discussed pt function. Zack notes that pt cleared from his delirium fairly quickly once he left [facility]. She discussed concerns with dialysis providers and chain splitter kept a close eye on pt for Zack. Pt returned to his home once dc'ed from hospital as this is where he wished to go. Zack and Sue are not able to see pt often and are reliant on word of pt function from both pt as well as his local friends up here. Zack notes that pt had his recommended embolization in [place] (Prov?) as he has been very embarrassed about what he feels was his unsightly behaviors. Discussed delirium with Zack and how having one episode of this makes pt more likely to be at risk for delirium again with another hospitalization. Recommended that pt medical providers be aware that this has happened to him. Zack indicates that family/pt feel that it may have been a combination of pain meds, decreased sleep, lack of food and dehydration that caused him to act out of character. Zack had questions about hospice services, which were discussed. Informed her that this would mean a cessation of dialysis and a return to hospital but that it could provide pt with a high level of support to manage needs in the home. Zack understands that hospice is not 24/7 care and that pt might need to hire CG in the home, in addition to hospice. Phone call to pt home and speak to pt. Pt apologizes several times and wants this worker to tell staff that he is sorry for his behavior. Discuss delirium and how common it can be in an older population. Tell pt that medical staff are used to dealing with delirium and that we would like to see pt again, should he have the need to come into the hospital. He is pleased to hear this info. He reports he is doing well. Still tired, taking things day by day. Dialysis going well. P: No further need for PC follow up. Xochitl OLEARY, [facility]
== END 2017-01-11 18:30 | disposition home or self-care (01) | DRG 686 ==
LOC: SED 17:10 → OSC 21:27
PROVIDERS: ADMIT Internal Medicine; ATTEND Internal Medicine
PROC: 5A1D00Z (ICD-10-PCS; principal; 2017-01-07)
DX: C64.1 Malignant neoplasm of right kidney, except renal pelvis (principal); N18.6 End stage renal disease; I12.0 Hypertensive chronic kidney disease with stage 5 chronic kidney disease or end stage renal disease; Z99.2 Dependence on renal dialysis; R31.0 Gross hematuria; I25.10 Atherosclerotic heart disease of native coronary artery without angina pectoris; K21.9 Gastro-esophageal reflux disease without esophagitis; E78.5 Hyperlipidemia, unspecified; J45.909 Unspecified asthma, uncomplicated; N40.1 Benign prostatic hyperplasia with lower urinary tract symptoms; R33.8 Other retention of urine; F10.20 Alcohol dependence, uncomplicated; D64.9 Anemia, unspecified; R13.13 Dysphagia, pharyngeal phase

== ENCOUNTER 2017-05-11 13:35 | Inpatient (IN) | payer MEDICARE, OTHER ==
[2017-05-11] VITALS (10 sets, daily range): BP systolic 89–118; BP diastolic 49–87; PULSE 80–115; RESP 16–22; O2SAT 91–100
[~2017-05-11] VITALS: Ht 175.3 cm; Wt 86.6 kg
[~2017-05-11 13:35] MED LIST changes: +FINA5TAB9 PO; +HYOS-22 PO; -ISOS60TA2 PO; +KEN1O TOP; +LYSI1000 PO; +METO25TA6 PO; -METO75TA PO; +OMEP20CA11 PO; +OXYC-408 PO; -OXYC5TAB72 PO; +SEVE800T7 PO
--- NOTE | 2017-05-11 14:04 | ED.REPORT ---
HPI-General Illness Date of Service May 11, 2017 ED Provider: Blanquita Costello MD The pt is a 81 y/o male w/ a hx of dyslipidemia, orthopnea, GERD, ESRD, HTN, cancer, ESRD, CAD, CHF and multiple other chronic conditions presenting to the ED complaining of SOB. Denies peripheral edema. The pt is coming from his cardiology office and has a new diagnosis of A-fib. The pt also is new to dialysis and had a treatment this morning. He is getting more symptomatic causing his line person to send him here to the ED. He has also recently developed orthopnea. The pt had a SVT last year, had an ablation done, and her reports it coming back 2 weeks ago. The pt was last hospitalized 4 months ago due to intractable abdominal pain. Nursing Notes Stated Complaint: A-FIB Chief Complaint: SOB Nursing Notes Reviewed: Yes Allergies: Coded Allergies: Quinolones (Verified Allergy, Severe, destroyed achilles tendons and calf muscle, 01/05/17) ciprofloxacin (Verified Allergy, Intermediate, 01/05/17) Scheduled Aspirin (Aspirin) 81 Mg Tablet 81 MG PO QAM Atorvastatin Calcium (Atorvastatin Calcium) 80 Mg Tablet 80 MG PO HS Calcitriol (Rocaltrol) 0.25 Mcg Capsule 0.5 MCG PO QAM Cholecalciferol (Vitamin D3) (Vitamin D3) 2,000 Unit Tablet 2,000 UNIT PO QAM Clopidogrel Bisulfate (Plavix) 75 Mg Tablet 75 MG PO QAM Finasteride (Finasteride) 5 Mg Tablet 5 MG PO QAM Lysine (Lysine) 1,000 Mg Tablet 1,000 MG PO QAM Metoprolol Tartrate (Metoprolol Tartrate) 25 Mg Tablet 25 MG PO QAM Omeprazole (Omeprazole) 20 Mg Capsule.dr 20 MG PO QAM Sennosides (Senna) 8.6 Mg Tablet 8.6 MG PO QAM Sevelamer Carbonate (Renvela) 800 Mg Tablet 800 MG PO TIDWM Sodium Bicarbonate (Sodium Bicarbonate) 325 Mg Tablet 650 MG PO TID Tamsulosin ER (Tamsulosin ER) 0.4 Mg Cap.er.24h 0.4 MG PO HS Torsemide (Torsemide) 20 Mg Tablet 40 MG PO QAM Scheduled PRN Albuterol HFA (Proair HFA) 8.5 Gm Hfa.aer.ad 2 PUFFS INHALATION Q4H PRN PRN For Shortness of Breath Diltiazem (Diltiazem) 30 Mg Tablet 30 MG PO QID PRN PRN palpitations Fluticasone Propionate (Fluticasone Propionate Nasal) 16 Gm Bagley.susp 1 SPRAY NASAL DAILY PRN PRN For Congestion Hyoscyamine (Hyoscyamine) 0.125 Mg Tablet 0.125 MG PO Q4H PRN PRN BLADDER SPASMS Nitroglycerin SL (Nitrostat) 0.4 Mg Tablet 0.4 MG SL Q5MIN PRN PRN For Chest Pain Oxycodone HCl/Acetaminophen (Endocet 10-325 mg Tablet) 1 Each Tablet 1-2 EACH PO Q4H PRN PRN For Pain Triamcinolone Acet (Triamcinolone Acetonide Ointment) 1 Applic/0.25 Gm Oint 1 APPLIC TOP BID PRN PRN RASH General Time Seen by MD: 14:04 Chief Complaint Other (SOB) Hx Obtained From: Patient Arrived By: Walk-in Sudden in Onset?: Yes Onset Occurred: More than a week ago... (2 weeks) Symptom Duration: Since onset Recent Healthcare: Recent doctor visit, Recent hospitalization Similar Sx Previous: Yes Past Medical History Past Medical History Notes: Admitted with non STEMI on April 02 2016 with chest pain medically managed and discharged home diagnosis was renal pelvis solid mass without admission went home on and came back on in ER in SVT converted with 2 doses Adenosine and sent home back on with afib with RVR and chest pain On April 06 2016 Metoprol increased to 75 mg twice daily and on Plavix and ASA no other blood thinners. 11/26/2016 ED visit for near syncopal episode after dialysis appointment. 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 Physical Exam Vital Signs Vital Signs Date Time Temp Pulse Resp B/P Pulse Ox O2 Delivery O2 Flow Rate FiO2 05/11/17 15:56 103 19 98/49 99 Nasal Cannula 2 05/11/17 15:44 99 Nasal Cannula 2 05/11/17 15:37 103 19 98/49 91 Room Air 05/11/17 14:14 109 22 104/59 99 Room Air 05/11/17 13:40 36.2 85 18 89/54 98 Initial VS: Reviewed General/Constitutional: Well-developed, Well-nourished Head / Eyes: Atraumatic, Normocephalic, PERRL ENT: Mucous membranes moist, Conjunctiva normal, No scleral icterus Neck: Supple, Non-tender, Full range of motion Respiratory: Breath sounds normal, Clear to auscultation, No respiratory distress Neurologic: Alert, Oriented, Nonfocal Psychiatric: Mood/affect normal, Behavior normal, Normal thought content Neck: Supple, Full range of motion JVD present Cardiovascular: Heart rate NL, Regular rhythm IV/ blowing systolic murmur Skin: 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 as well as multiple areas on the scalp Interpretation & Diagnostics Lab Results Interpretation Result Diagram: 05/11/17 1410 05/11/17 1410 Test 05/11/17 14:10 White Blood Count 3.4th/mm3 (3.8-10.1) Red Blood Count 3.10mil/mm3 (4.40-5.80) Hemoglobin 10.1g/dL (13.8-17.2) Hematocrit 31.2% (41.0-50.0) Mean Corpuscular Volume 100.6fL (81-100) Mean Corpuscular Hemoglobin 32.6pg (27.0-35.0) Mean Corpuscular Hemoglobin Concent 32.4% (32.0-37.0) Red Cell Distribution Width 13.4% (12.3-15.4) Platelet Count 168bil/L (150-400) Neutrophils (%) (Auto) 53.2% (40-74) Lymphocytes (%) (Auto) 26.7% (14-46) Monocytes (%) (Auto) 8.7% (4-12) Eosinophils (%) (Auto) 10.5% (0-5) Basophils (%) (Auto) 0.9% (0-3) Sodium Level 138mEq/L (134-144) Potassium Level 3.5mEq/L (3.5-5.2) Chloride Level 96mEq/L (97-108) Carbon Dioxide Level 29mmol/L (18-29) Blood Urea Nitrogen 14mg/dL (8-27) Creatinine 3.04mg/dL (0.76-1.27) Estimat Glomerular Filtration Rate 21mL/min (>59) Glucose Level 115mg/dL (60-99) Calcium Level 8.7mg/dL (8.5-10.1) Magnesium Level 1.9mg/dL (1.6-2.6) Total Bilirubin 0.3mg/dL (0.0-1.2) Aspartate Amino Transf (AST/SGOT) 8U/L (0-50) Alanine Aminotransferase (ALT/SGPT) 9U/L (0-44) Alkaline Phosphatase 74U/L (25-160) Troponin T 0.028ug/L (0.0-0.011) Pro-B-Type Natriuretic Peptide 57945ay/mL (0-486) Total Protein 6.1g/dL (6.4-8.4) Albumin 3.5g/dL (3.4-5.0) Hold Mendez Top Tube Received (Received) ECG Interpretation ECG Interpretation: Rate 90 A-fib Nonspecific T abnormalities, lateral leads New A-fib PVC Time: 13:56 Interpreted by: ED physician Re-Eval/Medical Decision Med Decision/Clinical Course 81-year-old gentleman sent over from cardiology office. 2 weeks of new atrial fibrillation. Difficulty in getting him anticoagulated to try options for cardioversion. Now with elevated rate for the last 2 weeks is showing signs of heart failure with significant orthopnea. Nephrology is been reluctant to dialyze him any further to help with volume overload due to hypotension concerns Dr. Freeman has asked for help in managing his heart failure through more aggressive dialysis as well as inpatient workup now for his new atrial fibrillation and consideration of various options for anticoagulation, unable to get his INR elevated with Coumadin, or echo/ADELA to show he has no atrial clots in proceeding with electrial cardioversion Currently with moderate orthopnea. O2 sat sitting upright or at 92% and he is much more comfortable with 1 L of oxygen on. Hemodynamically stable in atrial fibrillation with rates in the 110 range. Source of Hx: Old records Consultation #1: Consulted With: Nephrology Call Returned at: 15:19 Histology Specialist: Will see patient Note: will consult and manage routine dialysis needs Consultation #2: Consulted With: Hospitalist Call Returned at: 16:17 Histology Specialist: Will see patient Counseled Regarding: Diagnosis, Lab results, Need for admission Discharge & Departure Primary Impression: New onset a-fib Additional Impressions: Chronic renal failure Chronic kidney disease stage: unspecified stage Qualified Code: N18.9 - Chronic kidney disease, unspecified Orthopnea CHF (congestive heart failure) Congestive heart failure type: unspecified congestive heart failure type Congestive heart failure chronicity: unspecified congestive heart failure chronicity Qualified Code: I50.9 - Heart failure, unspecified Disposition: ADMITTED TO HOSPITAL Discharge Condition All VS Reviewed: Yes Condition: Stable Referrals: Valdo Horvath MD (PCP) Scribe Attestation Portions of this note were transcribed by Rosalio Vivas. I, Dr. Costello personally performed the history, physical exam and medical decision-making; I reviewed and confirmed the accuracy of the information in the transcribed note. copies to: Valdo Horvath MD, Shawna L MD May 11, 2017 14:04 Rosalio Vivas May 11, 2017 14:15
[2017-05-11 14:17] LABS: BASOPHILS % (AUTO) 0.9 % (0-3); EOSINOPHILS % (AUTO) 10.5 % (0-5); MONOCYTES % (AUTO) 8.7 % (4-12); Mean Corpuscular Hemoglobin 32.6 pg (27.0-35.0); Mean Corpuscular Volume 100.6 fL (81-100); NEUTROPHILS % (AUTO) 53.2 % (40-74); Platelet Count 168 bil/L (150-400)
[2017-05-11 14:38] LABS: TROPONIN T 0.028 ug/L (0.0-0.011)
[2017-05-11 14:49] LABS: Magnesium 1.9 mg/dL (1.6-2.6)
--- NOTE | 2017-05-11 15:40 | DRSVH ---
PROCEDURE: X-RAY CHEST ONE VIEW, PORTABLE ([id number]) INDICATIONS: orthopnea TECHNIQUE: One view of the chest was acquired. COMPARISON: [facility], CR, XR CHEST 1VW (PORTABLE), 04/09/2016, 5:47. FINDINGS: Surgical changes and devices: Postoperative changes of the chest are again evident. Lungs and pleura: There are low lung volumes. Increased lung markings are evident within the bilater al lung bases. No large effusion or definite pneumothorax is appreciated. The pulmonary vasculature slightly prominent. Mediastinum: Mediastinal contours appear normal. Heart size is normal. There is aortic atheroscler osis. Bones and chest wall: No suspicious bony lesions. Overlying soft tissues appear unremarkable. IMPRESSION: 1. Mild bibasilar atelectasis. Superimposed pneumonia is felt to be less likely. 2. Mild vascular congestion without overt heart failure. Dictated by: Harish Waddell M.D. on 05/11/2017 at 14:37 Approved by: Harish Waddell M.D. on 05/11/2017 at 14:39
[2017-05-11] MEDS ORDERED: Alum-Mag Hydrox-Simeth 30 mL Suspension PO PRN (16:40)
[2017-05-11] MEDS ORDERED: Ondansetron 2 mg/mL 2 mL Inj IVPUSH PRN (16:40)
--- NOTE | 2017-05-11 16:48 | PCM.HPMED ---
Subjective Date of Service May 11, 2017 Primary Provider: Admitting Physician: Carlton Steel DO Primary Care Physician: Valdo Horvath MD Attending Physician: Carlton Steel DO Chief Complaint: "My senior telecommunications specialist told me to come in" History of Present Illness: Patient is an 81-year-old male past medical history significant for end-stage renal disease, cardiovascular disease status post CABG, presenting to the emergency department on referral from his senior telecommunications specialist, Dr Chacon, following visit earlier today when he was noted to have worsening orthopnea and uncontrolled atrial fibrillation. Recommendations condition is complicated by end-stage renal disease which is dialysis dependent, it has made the use of continued beta patricia therapy difficult as it is dialyzed off every other day with his treatments. Additionally patient has demonstrated borderline low blood pressures with intermittent hypotension, creating further difficulty in regulating patient rate. Following her visit today Dr. Chacon felt patient would be benefited from an attempt at cardioversion therapy which may reverse this recently developed condition of atrial fibrillation. She advised hospital admission for more prompt medical evaluation and likely in-house cardioversion to be conducted by herself for one of her colleagues. On presentation patient has no acute complaints, denies any chest pains or worsening of shortness of breath, though he does admit his breathing over the past couple weeks has not been at his baseline. He has no fevers or chills. And no other acute complaints at this time. Does have a history of SVT approximately 1 year prior , for which bleed of therapy was conducted being to remission of his condition. Review of Systems: A 10 point review of systems was conducted and entirely negative excepting pertinent positives and negatives included in above history of present illness Allergies Coded Allergies: Quinolones (Verified Allergy, Severe, destroyed achilles tendons and calf muscle, 01/05/17) ciprofloxacin (Verified Allergy, Intermediate, 01/05/17) Home Medications Aspirin (Aspirin) 81 Mg Tablet 81 MG PO QAM Atorvastatin Calcium (Atorvastatin Calcium) 80 Mg Tablet 80 MG PO HS Calcitriol (Rocaltrol) 0.25 Mcg Capsule 0.5 MCG PO QAM Cholecalciferol (Vitamin D3) (Vitamin D3) 2,000 Unit Tablet 2,000 UNIT PO QAM Clopidogrel Bisulfate (Plavix) 75 Mg Tablet 75 MG PO QAM Finasteride (Finasteride) 5 Mg Tablet 5 MG PO QAM Lysine (Lysine) 1,000 Mg Tablet 1,000 MG PO QAM Metoprolol Tartrate (Metoprolol Tartrate) 25 Mg Tablet 25 MG PO QAM Omeprazole (Omeprazole) 20 Mg Capsule.dr 20 MG PO QAM Sennosides (Senna) 8.6 Mg Tablet 8.6 MG PO QAM Sevelamer Carbonate (Renvela) 800 Mg Tablet 800 MG PO TIDWM Sodium Bicarbonate (Sodium Bicarbonate) 325 Mg Tablet 650 MG PO TID Tamsulosin ER (Tamsulosin ER) 0.4 Mg Cap.er.24h 0.4 MG PO HS Torsemide (Torsemide) 20 Mg Tablet 40 MG PO QAM Scheduled PRN Albuterol HFA (Proair HFA) 8.5 Gm Hfa.aer.ad 2 PUFFS INHALATION Q4H PRN PRN For Shortness of Breath Diltiazem (Diltiazem) 30 Mg Tablet 30 MG PO QID PRN PRN palpitations Fluticasone Propionate (Fluticasone Propionate Nasal) 16 Gm [place].susp 1 SPRAY NASAL DAILY PRN PRN For Congestion Hyoscyamine (Hyoscyamine) 0.125 Mg Tablet 0.125 MG PO Q4H PRN PRN BLADDER SPASMS Nitroglycerin SL (Nitrostat) 0.4 Mg Tablet 0.4 MG SL Q5MIN PRN PRN For Chest Pain Oxycodone HCl/Acetaminophen (Endocet 10-325 mg Tablet) 1 Each Tablet 1-2 EACH PO Q4H PRN PRN For Pain Triamcinolone Acet (Triamcinolone Acetonide Ointment) 1 Applic/0.25 Gm Oint 1 APPLIC TOP BID PRN PRN RASH PMH CAD s/p DC Dyslipidemia GERD Nephrolithiasis A-fib ESRD - on dialysis Vitamin D deficiency BPH 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 Hyperlipidemia Secondary hyperparathyroidism Orthopnea Moderate mitral regurgitation Asthma, Cancer, Congestive heart failure, Hypertension Surgical History CABG Cardiac stent placement Cardiac ablation for SVT Social History Hx Alcohol Use: Yes Hx Substance Use: No Hx Tobacco Use: Yes (quit) Smoking Status: Former Smoker Exam Vital Signs Vital Sign - Last Date Time Temp Pulse Resp B/P Pulse Ox O2 Delivery O2 Flow Rate FiO2 05/11/17 15:56 103 19 98/49 99 Nasal Cannula 2 05/11/17 13:40 36.2 General: Alert, Oriented X3, Cooperative, Mild Distress Mouth: Mucous Membr Moist/[place] Neck: Supple, Tenderness, Other (no JVD noted) Chest & Lungs: Clear to auscultation & percussion, Coarse breath sounds Cardiovascular: Other (regular rate with a regular rhythm) Abdomen: Non-tender, Non-distended Extremities: No cyanosis/clubbing/edma bilat Neurological: Grossly Neurologically Intact, Cranial Nerves 2-12 Intact Lab and Diagnostics Result Diagram: 05/11/17 1410 05/11/17 1410 Assessment & Plan 81-year-old male past medical history most significant for new onset atrial fibrillation in conjunction with end-stage renal disease dialysis dependent, admitted on recommendation of cardiology for expectant cardioversion following medical evaluation #Orthopnea/Shortness of Breath #Congestive heart failure, systolic type - Discussing this case with Dr Chacon, believes Orthopnea is the result of a progressive heart failure in the setting of volume overload - As blood pressures remain low, HD has been less aggressive due to concern for producing worsening hypotension, rate control further complicated by inconsistent metoprolol dosing. - Supplemental oxygen as needed, problem base treatment as detailed below - Pt taking Torsemide at home, this would suggest the ability to create some urine, will trial IV Lasix in place, starting at 40mg IV push once. #Atrial fibrillation - Patient has not responded well to rate control therapy both given after dialysis in addition to borderline low blood pressures - We will monitor on telemetry - Cardiology requesting admission, will consider cardioversion in house proceeded by [facility] - Given difficulties in achieving stable INR, will convert patient to Eloquis at this time, renally dosed at 2.5mg PO BID on recommendation from Dr Chacon. #End stage renal disease dialysis dependent - Continue patient on home medications - Nephrology has been consulted and will arrange for inpatient dialysis in accordance with his schedule - May be possible for achieve more aggressive volume removal in hospital setting given coomorbid hypotension. #Coronary artery disease, - Continue outpatient medications this time including statin, dual-antiplatelet therapy consisting of aspirin and Plavix therapy, and THI inhibitor. - Note: With the initiation of Eloquis, this may be reconsidered during hospital stay, however give kael of stenting will continue at this time to confirm with cardiology if all need to be continued Pain Evaluation: Adequate Pain Control VTE Prophylaxis: Other Resuscitation Status: CPR: Attempt Resuscitation Time spent 65 minutes Carlton Steel DO May 11, 2017 16:48
[2017-05-11] MEDS ORDERED: Fluticasone 0.05% 15 Spray/2 Gm 16 Gm Nasal Spray NASAL PRN (16:50)
[2017-05-11 17:40] LABS: APPEARANCE,URINE CLEAR (CLEAR,HAZY); COLOR,URINE YELLOW (YELLOW); OCCULT BLOOD,URINE TRACE (NEGATIVE); UROBILINOGEN,URINE NORMAL (NORMAL)
--- NOTE | 2017-05-11 18:09 | PCM.CHPMED ---
Subjective Date of Service: May 11, 2017 Primary Physician: Admitting Physician: Carlton Steel DO Primary Care Physician: Valdo Horvath MD Attending Physician: Carlton Steel DO Chief Complaint: Chief Complaint: Afib with RVR and shortness of breath History of Present Illness: This is an 81 yo M with PMH of ESRD, CAD s/p CABG, dyslipidemia, nephrolithiasis , Afib, CHF, renal mass s/p embolization who was sent to ER by his blending line attendant due to uncontrolled Afib. Renal was consulted to manage ESRD. He has had worsening shortness of breath over the past 4 days. He was evaluated by his blending line attendant and planned to have cardioversion due to unsuccessful rate control with beta-patricia and hypotension. He is a patient of Dr. Khoury. He is dialyzed at [facility] every Monday, and Monday. He had treatment this morning. During my visit, he reports no chest pain, SOB, fever, chills, nausea, vomiting or diarrhea. PAST MEDICAL HISTORY: 1. End-stage renal disease on HD. 2. Coronary artery disease, status post AL with coronary artery bypass and stent placement. 3. Hyperlipidemia. 4. Renal lithiasis. 5. Renal mass and hematuria s/p embolization 6. Mitral regurgitation and aortic stenosis. 7. Atrial fibrillation. 8. Congestive heart failure. 9. Hypertension with hypertensive heart disease and hypertensive nephrosclerosis. PAST SURGICAL HISTORY: 1. s/p CABG 2. AVF creation 3. Lithotripsy SOCIAL HISTORY: h/o alcohol abuse former smoker ALLERGIES: Quinolone, ciprofloxacin FAMILY HISTORY: Significant for heart failure. REVIEW OF SYSTEMS: 14 point ROS performed. PMH Allergies: Coded Allergies: Quinolones (Verified Allergy, Severe, destroyed achilles tendons and calf muscle, 01/05/17) ciprofloxacin (Verified Allergy, Intermediate, 01/05/17) Social History Hx Alcohol Use: YesHx Substance Use: NoHx Tobacco Use: Yes (quit) Smoking Status: Former Smoker Exam Vital Signs Vital Sign - Last Date Time Temp Pulse Resp B/P Pulse Ox O2 Delivery O2 Flow Rate FiO2 05/11/17 16:52 36.2 87 18 118/87 100 Nasal Cannula 1.00 General: Alert, Oriented X3, Cooperative Head: Normal, Facial Expression & Appearance Eyes: PERRLA, EOMI Mouth: Lips, Mouth Normal, Mucous Membr Moist/[place] Neck: Supple, No Thyromegaly Chest & Lungs: Clear to auscultation & percussion Cardiovascular: Other (irregular, tachycardic) Abdomen: Non-tender, Non-distended, No hepatosplenomegaly Extremities: No cyanosis/clubbing/edma bilat Lab and Diagnostics Result Diagram: 05/11/17 1410 05/11/17 1410 Assessment & Plan Assessment 1. End-stage renal disease on HD. 2. Afib with RVR. 3. Coronary artery disease, status post AL with coronary artery bypass and stent placement. 4. Dyslipidemia. 5. Nephrolithiasis. 6. Renal mass and hematuria s/p embolization 7. Mitral regurgitation and aortic stenosis. Plan: Pending cardioversion per cardiology. Next HD on Sat. Thank you for consultation, we will monitor along with you. Problems: Pain Evaluation: Adequate Pain Control VTE Prophylaxis: Other Resuscitation Status: CPR: Attempt Resuscitation Yves Mata MD May 11, 2017 18:09
[2017-05-11] MEDS ORDERED: Furosemide 10 mg/mL 4 mL Inj IVPUSH ONE (18:45)
[2017-05-11] MEDS ORDERED: FLUO30CR TP (19:01)
[2017-05-11] MEDS ORDERED: WARF2.5T82 PO (19:08)
--- NOTE | 2017-05-11 19:24 | NUR ---
Admission Admit to room 3012. O2, SL. Oriented to room and call light. Admission assessments completed. Med rec completed by pharmacy.
[2017-05-11] MEDS: Polyethylene Glycol (PEG) 17 Gm Powder PO PRN (22:20)
[2017-05-11] MEDS: Albuterol 2.5 mg/3 mL Inhalation Solution NEB PRN (22:25)
[2017-05-12] VITALS (12 sets, daily range): BP systolic 102–116; BP diastolic 63–76; PULSE 66–124; RESP 16–22; O2SAT 90–100
[2017-05-12] MEDS: Pantoprazole 40 mg ER24 Tablet PO SCH (05:32)
[2017-05-12] MEDS: Albuterol 2.5 mg/3 mL Inhalation Solution NEB PRN ×2 (05:52→20:23)
[2017-05-12 05:54] LABS: BASOPHILS % (AUTO) 0.4 % (0-3); EOSINOPHILS % (AUTO) 6.7 % (0-5); MONOCYTES % (AUTO) 8.4 % (4-12); Mean Corpuscular Hemoglobin 33.2 pg (27.0-35.0); Mean Corpuscular Volume 100.6 fL (81-100); NEUTROPHILS % (AUTO) 62.8 % (40-74); Platelet Count 164 bil/L (150-400)
--- NOTE | 2017-05-12 06:31 | NUR ---
SOB Reporting feeling SOB. SpO2 high 90's 1L NC. breathing non labored and does not appear to be in any distress despite c/o SOB. HOB elevated, repeat respirator assessment and RT notified for prn breathing tx. After breathing tx reports SOB improved. Currently resting without any complaints.
--- NOTE | 2017-05-12 11:51 | PCM.PNNEPH ---
Subjective Date of Service May 12, 2017 Subjective (+) orthopnea and dyspnea at rest, improved with breathing treatment. Last HD was performed yesterday. optics test technician at bedside. Exam Vital Signs Vital Sign - Last Date Time Temp Pulse Resp B/P Pulse Ox O2 Delivery O2 Flow Rate FiO2 05/12/17 09:53 36.8 93 22 114/72 95 Nasal Cannula 2.00 Intake and Output 05/11/17 05/11/17 05/12/17 Cumulative From/Thru 15:00 23:00 07:00 05/11/17 13:40 - 05/12/17 05:50 Intake Total 200 ml 200 ml Output Total 200 ml 200 ml Balance 0 ml 0 ml Intake Oral 200 ml 200 ml IV Total 0 ml 0 ml Output Urine Total 200 ml 200 ml # Bowel Movements 1 1 Exam General: Alert, Oriented X3, Cooperative Head: Normal, Facial Expression & Appearance Eyes: PERRLA, EOMI Mouth: Lips, Mouth Normal, Mucous Membr Moist/[place] Neck: Supple, No Thyromegaly (+) JVD Chest & Lungs: Fine crackles at bases. Cardiovascular: Other (irregular rhythm) Abdomen: Non-tender, Non-distended, No hepatosplenomegaly Extremities: No cyanosis/clubbing/edma bilat, (+) AVF. Lab and Diagnostics Result Diagram: 05/12/1751905/12/17 0520 Plan Impression 1. End-stage renal disease on HD. 2. Afib with RVR. 3. Coronary artery disease, status post RI with coronary artery bypass and stent placement. 4. Dyslipidemia. 5. Nephrolithiasis. 6. Renal mass and hematuria s/p embolization 7. Mitral regurgitation and aortic stenosis. Plan: Repeat CXR. Will discuss with cardiology. May require extraHD today, will reassess after echo finished. Yves Mata MD May 12, 2017 11:51
--- NOTE | 2017-05-12 14:28 | PCM.PNMED ---
Subjective Date of Service May 12, 2017 Subjective Patient notes he is having continuing shortness of breath. Denies any chest pain. Exam Vital Signs Vital Sign - Last Date Time Temp Pulse Resp B/P Pulse Ox O2 Delivery O2 Flow Rate FiO2 05/12/17 13:28 36.7 103 20 111/76 98 Nasal Cannula 2.00 Intake and Output 05/11/17 05/11/17 05/12/17 Cumulative From/Thru 15:00 23:00 07:00 05/11/17 13:40 - 05/12/17 05:50 Intake Total 200 ml 200 ml Output Total 200 ml 200 ml Balance 0 ml 0 ml Intake Oral 200 ml 200 ml IV Total 0 ml 0 ml Output Urine Total 200 ml 200 ml # Bowel Movements 1 1 Exam Constitutional.: Elderly male in no acute distress Head: Normocephalic atraumatic Chest: Has crackles at his bases bilaterally Cor: Irregular regular rate and rhythm S1-S2 ejection murmur Abdomen: Soft nontender bowel sounds present Extremities: Trace bilateral pedal edema Psych: Mood and affect are appropriate Neuro: Alert and oriented 3, motor strength is intact bilaterally IVs and Medications Medications Reviewed: Medications were reviewed in detail Lab and Diagnostics Laboratory Tests 72 Hours Test 05/11/17 14:10 05/11/17 17:09 05/12/17 05:20 05/12/17 12:26 White Blood Count 3.4th/mm3 (3.8-10.1) 4.8th/mm3 (3.8-10.1) Red Blood Count 3.10mil/mm3 (4.40-5.80) 3.13mil/mm3 (4.40-5.80) Hemoglobin 10.1g/dL (13.8-17.2) 10.4g/dL (13.8-17.2) Hematocrit 31.2% (41.0-50.0) 31.5% (41.0-50.0) Mean Corpuscular Volume 100.6fL (81-100) 100.6fL (81-100) Mean Corpuscular Hemoglobin 32.6pg (27.0-35.0) 33.2pg (27.0-35.0) Mean Corpuscular Hemoglobin Concent 32.4% (32.0-37.0) 33.0% (32.0-37.0) Red Cell Distribution Width 13.4% (12.3-15.4) 13.5% (12.3-15.4) Platelet Count 168bil/L (150-400) 164bil/L (150-400) Neutrophils (%) (Auto) 53.2% (40-74) 62.8% (40-74) Lymphocytes (%) (Auto) 26.7% (14-46) 21.5% (14-46) Monocytes (%) (Auto) 8.7% (4-12) 8.4% (4-12) Eosinophils (%) (Auto) 10.5% (0-5) 6.7% (0-5) Basophils (%) (Auto) 0.9% (0-3) 0.4% (0-3) Sodium Level 138mEq/L (134-144) 139mEq/L (134-144) Potassium Level 3.5mEq/L (3.5-5.2) 4.2mEq/L (3.5-5.2) Chloride Level 96mEq/L (97-108) 98mEq/L (97-108) Carbon Dioxide Level 29mmol/L (18-29) 25mmol/L (18-29) Blood Urea Nitrogen 14mg/dL (8-27) 24mg/dL (8-27) Creatinine 3.04mg/dL (0.76-1.27) 3.66mg/dL (0.76-1.27) Estimat Glomerular Filtration Rate 21mL/min (>59) 17mL/min (>59) Glucose Level 115mg/dL (60-99) 98mg/dL (60-99) Calcium Level 8.7mg/dL (8.5-10.1) 9.4mg/dL (8.5-10.1) Magnesium Level 1.9mg/dL (1.6-2.6) Total Bilirubin 0.3mg/dL (0.0-1.2) Aspartate Amino Transf (AST/SGOT) 8U/L (0-50) Alanine Aminotransferase (ALT/SGPT) 9U/L (0-44) Alkaline Phosphatase 74U/L (25-160) Troponin T 0.028ug/L (0.0-0.011) 0.021ug/L (0.0-0.011) Pro-B-Type Natriuretic Peptide 46239or/mL (0-486) Total Protein 6.1g/dL (6.4-8.4) Albumin 3.5g/dL (3.4-5.0) Hold Mendez Top Tube Received (Received) Urine Color Yellow (YELLOW) Urine Appearance Clear (CLEAR,HAZY) Urine pH 8.0 (5.0-8.0) Urine Specific [place] 1.015 (1.003-1.035) Urine Protein 100mg/dL (NEG,TRACE) Urine Glucose (UA) Negativemg/dL (NEGATIVE) Urine Ketones Negativemg/dL (NEGATIVE) Urine Occult Blood Trace (NEGATIVE) Urine Nitrite Negative (NEGATIVE) Urine Bilirubin Negative (NEGATIVE) Urine Urobilinogen Normalmg/dL (NORMAL) Urine Leukocyte Esterase Negative (NEGATIVE) Urine RBC 0-2/hpf (0-2) Urine WBC 0-5/hpf (0-5) Urine Epithelial Cells Few/hpf (NONE-MOD) Urine Crystals None seen (NONE SEEN) Urine Bacteria Few/hpf (NONE-FEW) Urine Hyaline Casts None/lpf (NONE) Urine Granular Casts None seen (NONE SEEN) Urine Waxy Casts None seen (NONE SEEN) Urine Red Blood Cell Casts None seen (NONE SEEN) Urine White Blood Cell Casts None seen (NONE SEEN) Urine Mucus None seen (None Seen) Urine Trichomonas None seen (NONE SEEN) Urine Yeast None (NONE SEEN) Urinalysis Comment None Urine Culture Reflexed Not indicated Test 05/12/17 12:40 Sodium Level 137mEq/L (134-144) Potassium Level 3.9mEq/L (3.5-5.2) Chloride Level 97mEq/L (97-108) Carbon Dioxide Level 25mmol/L (18-29) Blood Urea Nitrogen 26mg/dL (8-27) Creatinine 4.17mg/dL (0.76-1.27) Estimat Glomerular Filtration Rate 15mL/min (>59) Glucose Level 124mg/dL (60-99) Calcium Level 9.5mg/dL (8.5-10.1) Result Diagram: 05/12/17 0520 05/12/17 1240 X-Rays, CTs and MRIs PROCEDURE: X-RAY CHEST ONE VIEW, PORTABLE ([id number]) INDICATIONS: orthopnea TECHNIQUE: One view of the chest was acquired. COMPARISON: [facility], CR, XR CHEST 1VW (PORTABLE), 04/09/2016, 5: 47. FINDINGS: Surgical changes and devices: Postoperative changes of the chest are again evident. Lungs and pleura: There are low lung volumes. Increased lung markings are evident within the bilateral lung bases. No large effusion or definite pneumothorax is appreciated. The pulmonary vasculature slightly prominent. Mediastinum: Mediastinal contours appear normal. Heart size is normal. There is aortic atherosclerosis. Bones and chest wall: No suspicious bony lesions. Overlying soft tissues appear unremarkable. IMPRESSION: 1. Mild bibasilar atelectasis. Superimposed pneumonia is felt to be less likely. 2. Mild vascular congestion without overt heart failure. Dictated by: Harish Waddell M.D. on 05/11/2017 at 14:37 Approved by: Harish Waddell M.D. on 05/11/2017 at 14:39 12-lead ECG EKG on May 11: Atrial fibrillation at a rate of 90 with Q in 3 and aVF Assessment & Plan 81-year-old male past medical history most significant for new onset atrial fibrillation in conjunction with end-stage renal disease dialysis dependent, admitted on recommendation of cardiology for expectant cardioversion following medical evaluation #Orthopnea/Shortness of Breath, acute, present on admission -Most likely related to both combination of RVR atrial fibrillation with resultant acute systolic congestive heart failure -Peds renal dialysis yesterday and nephrology is considering dialysis again today to curative extra fluid #Congestive heart failure, systolic type, acute, present on admission - Discussing this case with Dr Chacon, believes Orthopnea is the result of a progressive heart failure in the setting of volume overload - As blood pressures remain low, HD has been less aggressive due to concern for producing worsening hypotension, rate control further complicated by inconsistent metoprolol dosing. - Supplemental oxygen as needed, problem base treatment as detailed below - Pt taking Torsemide at home, this would suggest the ability to create some urine -Repeat chest x-rays pending a day -Echocardiogram done but results pending. #Atrial fibrillation, RVR, acute, present on admission - Patient has not responded well to rate control therapy both given after dialysis in addition to borderline low blood pressures - We will monitor on telemetry - Cardiology requesting admission, will consider cardioversion in house proceeded by ADE[facility] - Given difficulties in achieving stable INR, will convert patient to Eliquis at admit, renally dosed at 2.5mg PO BID on recommendation from Dr Chacon. #End stage renal disease dialysis dependent - Continue patient on home medications - Appreciate nephrology consultation - May be possible for achieve more aggressive volume removal in hospital setting given coomorbid hypotension. #Coronary artery disease, history thereof - Continue outpatient medications this time including statin, dual-antiplatelet therapy consisting of aspirin and Plavix therapy, and THI inhibitor. - Note: With the initiation of Eliquis, this may be reconsidered during hospital stay, however give kael of stenting will continue at this time to confirm with cardiology if all need to be continued VTE Prophylaxis: Other Resuscitation Status: CPR: Attempt Resuscitation Time spent 30 minutes Radha Perez MD May 12, 2017 14:28
--- NOTE | 2017-05-12 15:33 | NUR ---
To Dialysis Patient given orders for extra dialysis day today. Patient informed of planned time of dialysis. Patient report called and given to [facility] nurse. Patient taken in bed to room 244. Patient chart given to Dialysis nurse.
[2017-05-12] MEDS: Albumin 25% 100 ML IV PRN (16:13)
--- NOTE | 2017-05-12 18:40 | NUR ---
Dialysis note: 3 hrs PUF 2000 ml net UF WESLYE fistula, accessed w/ no problems Pls see DTR for VS details Qb 300 No heparin given O2 @ 2L via NC on during tx Tolerated treatment Fistula needle sites clotted w/in 10 min Stable condition at end of tx Report given to Jessica ESPINOZA
--- NOTE | 2017-05-12 22:00 | NUR ---
A-fib RVR Tele report a-fib 140s-160s for 2 seconds at 1848, then back to 110S-120S sustain. Pt asymptomatic,VSS, BP116/63. Pt reported he went to [facility] at that time. Dr. Natacha enriquez at 2004, let RN to give scheduled Metoprolol 12.5mg po, no other order given. Tele: A-fib remains 100-110s after Metoprolol 12.5 mg given at 2014. Pt is resting in bed comfortably. Dr. Braswell informed at 2153. No order given at this time. Continue monitoring. Addendum: 05/12/17 at 2257 by LEONOR BHAGAT RN Metoprolol 25mg po ordered and administered. Addendum: 05/13/17 at 0724 by LEONOR BHAGAT RN TELE: A-FIB 90s- low 100s after Metoprolol.
[2017-05-13] VITALS (11 sets, daily range): BP systolic 92–126; BP diastolic 58–71; PULSE 84–123; RESP 18–28; O2SAT 90–99
[2017-05-13] MEDS: Albuterol 2.5 mg/3 mL Inhalation Solution NEB PRN ×2 (04:15→21:49)
[2017-05-13] MEDS: Pantoprazole 40 mg ER24 Tablet PO SCH (06:17)
[2017-05-13] MEDS: Albumin 25% 100 ML IV PRN (09:30)
--- NOTE | 2017-05-13 09:32 | NUR ---
[place] [place] [facility] @ 8402. All a.m. medications administered, Metoprolol held. Vitals stable, no c/o sob at rest or pain, report given to Gurpreet Decker RN.
--- NOTE | 2017-05-13 10:01 | DRSVH ---
PROCEDURE: X-RAY CHEST ONE VIEW, PORTABLE ([id number]) INDICATIONS: Shortness of breath TECHNIQUE: One view of the chest was acquired. COMPARISON: Merged With [facility], CR, XR CHEST 1VW (PORTABLE), 05/11/2017, 15:20. FINDINGS: Surgical changes and devices: Median sternotomy wires. Lungs and pleura: Mild edema persistent bibasilar airspace opacities. Trace pleural effusions are li samina present. No pneumothorax. Mediastinum: Mediastinal contours appear normal. Heart size is normal. Bones and chest wall: No suspicious bony lesions. Overlying soft tissues appear unremarkable. IMPRESSION: Mild pulmonary edema and/or pneumonia involving the lung bases similar to prior examinati on. Dictated by: Rick Velasquez RRA Interpreted: Pricila Teague MD on 05/12/2017 at 12:35 Approved by: Pricila Teague M.D. on 05/13/2017 at 10:00
--- NOTE | 2017-05-13 12:20 | NUR ---
Social Work: Attempted Initial Assessment/Multidisciplinary Rounds DAP: SW attempted to meet with pt to complete initial assessment. Pt discussed in multidisciplinary rounds and is not medically stable for discharge. Per multidisciplinary rounds, pt to go for Dialysis from [id number] today. SW attempted to see pt after Dialysis - pt not yet available for assessment - pt not in room at time of attempt. SW will to re-attempt to complete assessment. GAURAV Trujillo
--- NOTE | 2017-05-13 12:52 | PCM.PNNEPH ---
Subjective Date of Service May 13, 2017 Subjective He is seen during HD. Stable. (+) orthopnea but somewhat improved. HD yesterday, UF 2L without complications. Exam Vital Signs Vital Sign - Last Date Time Temp Pulse Resp B/P Pulse Ox O2 Delivery O2 Flow Rate FiO2 05/13/17 09:04 84 05/13/17 07:58 Supplement Oxygen 05/13/17 07:48 36.4 28 102/64 94 05/13/17 04:35 2.00 Intake and Output 05/12/17 05/12/17 05/13/17 Cumulative From/Thru 15:00 23:00 07:00 05/11/17 13:40 - 05/13/17 05:52 Intake Total 10 ml 917 ml 100 ml 1227 ml Output Total 2250 ml 250 ml 2700 ml Balance 10 ml -1333 ml -150 ml -1473 ml Intake Oral 917 ml 100 ml 1217 ml IV Total 10 ml 10 ml Output Urine Total 250 ml 250 ml 700 ml Ultrafiltrate 2000 ml 2000 ml # Bowel Movements 0 1 Exam General: Alert, Oriented X3, Cooperative Head: Normal, Facial Expression & Appearance Eyes: PERRLA, EOMI Mouth: Lips, Mouth Normal, Mucous Membr Moist/Royal Neck: Supple, No Thyromegaly (+) JVD Chest & Lungs: Fine crackles at bases. Cardiovascular: Other (irregular rhythm) Abdomen: Non-tender, Non-distended, No hepatosplenomegaly Extremities: No cyanosis/clubbing/edma bilat, (+) AVF. Lab and Diagnostics Result Diagram: 05/12/17 0520 05/12/17 1240 X-Rays, CTs and MRIs PROCEDURE: X-RAY CHEST ONE VIEW, PORTABLE ([id number]) INDICATIONS: orthopnea TECHNIQUE: One view of the chest was acquired. COMPARISON: [facility], CR, XR CHEST 1VW (PORTABLE), 04/09/2016, 5: 47. FINDINGS: Surgical changes and devices: Postoperative changes of the chest are again evident. Lungs and pleura: There are low lung volumes. Increased lung markings are evident within the bilateral lung bases. No large effusion or definite pneumothorax is appreciated. The pulmonary vasculature slightly prominent. Mediastinum: Mediastinal contours appear normal. Heart size is normal. There is aortic atherosclerosis. Bones and chest wall: No suspicious bony lesions. Overlying soft tissues appear unremarkable. IMPRESSION: 1. Mild bibasilar atelectasis. Superimposed pneumonia is felt to be less likely. 2. Mild vascular congestion without overt heart failure. Dictated by: Harish Waddell M.D. on 05/11/2017 at 14:37 Approved by: Harish Waddell M.D. on 05/11/2017 at 14:39 12-lead ECG EKG on May 11: Atrial fibrillation at a rate of 90 with Q in 3 and aVF Plan Impression 1. End-stage renal disease on HD. 4 hr, 3K, 35HCO3, UF 2L DFR 600, BFR 400, AVF, revaclear. 2. Shortness of breath secondary to fluid overload and Afib with RVR. 3. Coronary artery disease, status post ND with coronary artery bypass and stent placement. 4. Dyslipidemia. 5. Nephrolithiasis. 6. Renal mass and hematuria s/p embolization 7. Mitral regurgitation and aortic stenosis. Plan: Next HD in am for UF 1-2L as tolerated. D/c planning within 24 hr. Yves Mata MD May 13, 2017 12:52
--- NOTE | 2017-05-13 13:40 | NUR ---
Dialysis note: 4 hrs tx 2000 ml net UF WESLEY fistula, accessed w/ no problems Pls see DTR for VS details Qb 400 No heparin given O2 @ 2L via NC on during tx Albumin 25% 100 ml IV given as ordered Tolerated treatment, slept at intervals Fistula needle sites clotted w/in 10 min Stable condition at end of tx Report given to Gregoria ESPINOZA
--- NOTE | 2017-05-13 13:55 | PCM.PNMED ---
Subjective Date of Service May 13, 2017 Subjective Patient just returned from dialysis. That last night he was feeling more short of breath but notes some improvement this morning. Exam Vital Signs Vital Sign - Last Date Time Temp Pulse Resp B/P Pulse Ox O2 Delivery O2 Flow Rate FiO2 05/13/17 09:04 84 05/13/17 07:58 Supplement Oxygen 05/13/17 07:48 36.4 28 102/64 94 05/13/17 04:35 2.00 Intake and Output 05/12/17 05/12/17 05/13/17 Cumulative From/Thru 15:00 23:00 07:00 05/11/17 13:40 - 05/13/17 05:52 Intake Total 10 ml 917 ml 100 ml 1227 ml Output Total 2250 ml 250 ml 2700 ml Balance 10 ml -1333 ml -150 ml -1473 ml Intake Oral 917 ml 100 ml 1217 ml IV Total 10 ml 10 ml Output Urine Total 250 ml 250 ml 700 ml Ultrafiltrate 2000 ml 2000 ml # Bowel Movements 0 1 Exam Constitutional: Elderly male in no acute distress Head: Normocephalic atraumatic Chest: Some scant crackles at his bases Cor: Regular rate and rhythm S1-S2 Abdomen: Soft nontender bowel sounds present Extremities: No pedal edema Skin: No rashes Psych: Mood and affect are appropriate Neuro: Alert and oriented 3, motor strength is intact bilaterally Lab and Diagnostics Laboratory Tests 72 Hours Test 05/11/17 14:10 05/11/17 17:09 05/12/17 05:20 05/12/17 12:26 White Blood Count 3.4th/mm3 (3.8-10.1) 4.8th/mm3 (3.8-10.1) Red Blood Count 3.10mil/mm3 (4.40-5.80) 3.13mil/mm3 (4.40-5.80) Hemoglobin 10.1g/dL (13.8-17.2) 10.4g/dL (13.8-17.2) Hematocrit 31.2% (41.0-50.0) 31.5% (41.0-50.0) Mean Corpuscular Volume 100.6fL (81-100) 100.6fL (81-100) Mean Corpuscular Hemoglobin 32.6pg (27.0-35.0) 33.2pg (27.0-35.0) Mean Corpuscular Hemoglobin Concent 32.4% (32.0-37.0) 33.0% (32.0-37.0) Red Cell Distribution Width 13.4% (12.3-15.4) 13.5% (12.3-15.4) Platelet Count 168bil/L (150-400) 164bil/L (150-400) Neutrophils (%) (Auto) 53.2% (40-74) 62.8% (40-74) Lymphocytes (%) (Auto) 26.7% (14-46) 21.5% (14-46) Monocytes (%) (Auto) 8.7% (4-12) 8.4% (4-12) Eosinophils (%) (Auto) 10.5% (0-5) 6.7% (0-5) Basophils (%) (Auto) 0.9% (0-3) 0.4% (0-3) Sodium Level 138mEq/L (134-144) 139mEq/L (134-144) Potassium Level 3.5mEq/L (3.5-5.2) 4.2mEq/L (3.5-5.2) Chloride Level 96mEq/L (97-108) 98mEq/L (97-108) Carbon Dioxide Level 29mmol/L (18-29) 25mmol/L (18-29) Blood Urea Nitrogen 14mg/dL (8-27) 24mg/dL (8-27) Creatinine 3.04mg/dL (0.76-1.27) 3.66mg/dL (0.76-1.27) Estimat Glomerular Filtration Rate 21mL/min (>59) 17mL/min (>59) Glucose Level 115mg/dL (60-99) 98mg/dL (60-99) Calcium Level 8.7mg/dL (8.5-10.1) 9.4mg/dL (8.5-10.1) Magnesium Level 1.9mg/dL (1.6-2.6) Total Bilirubin 0.3mg/dL (0.0-1.2) Aspartate Amino Transf (AST/SGOT) 8U/L (0-50) Alanine Aminotransferase (ALT/SGPT) 9U/L (0-44) Alkaline Phosphatase 74U/L (25-160) Troponin T 0.028ug/L (0.0-0.011) 0.021ug/L (0.0-0.011) Pro-B-Type Natriuretic Peptide 35751cc/mL (0-486) Total Protein 6.1g/dL (6.4-8.4) Albumin 3.5g/dL (3.4-5.0) Hold Mendez Top Tube Received (Received) Urine Color Yellow (YELLOW) Urine Appearance Clear (CLEAR,HAZY) Urine pH 8.0 (5.0-8.0) Urine Specific [place] 1.015 (1.003-1.035) Urine Protein 100mg/dL (NEG,TRACE) Urine Glucose (UA) Negativemg/dL (NEGATIVE) Urine Ketones Negativemg/dL (NEGATIVE) Urine Occult Blood Trace (NEGATIVE) Urine Nitrite Negative (NEGATIVE) Urine Bilirubin Negative (NEGATIVE) Urine Urobilinogen Normalmg/dL (NORMAL) Urine Leukocyte Esterase Negative (NEGATIVE) Urine RBC 0-2/hpf (0-2) Urine WBC 0-5/hpf (0-5) Urine Epithelial Cells Few/hpf (NONE-MOD) Urine Crystals None seen (NONE SEEN) Urine Bacteria Few/hpf (NONE-FEW) Urine Hyaline Casts None/lpf (NONE) Urine Granular Casts None seen (NONE SEEN) Urine Waxy Casts None seen (NONE SEEN) Urine Red Blood Cell Casts None seen (NONE SEEN) Urine White Blood Cell Casts None seen (NONE SEEN) Urine Mucus None seen (None Seen) Urine Trichomonas None seen (NONE SEEN) Urine Yeast None (NONE SEEN) Urinalysis Comment None Urine Culture Reflexed Not indicated Test 05/12/17 12:40 05/12/17 18:59 Sodium Level 137mEq/L (134-144) Potassium Level 3.9mEq/L (3.5-5.2) Chloride Level 97mEq/L (97-108) Carbon Dioxide Level 25mmol/L (18-29) Blood Urea Nitrogen 26mg/dL (8-27) Creatinine 4.17mg/dL (0.76-1.27) Estimat Glomerular Filtration Rate 15mL/min (>59) Glucose Level 124mg/dL (60-99) Calcium Level 9.5mg/dL (8.5-10.1) Troponin T 0.025ug/L (0.0-0.011) Result Diagram: 05/12/17 0520 05/12/17 1240 X-Rays, CTs and MRIs PROCEDURE: X-RAY CHEST ONE VIEW, PORTABLE ([id number]) INDICATIONS: orthopnea TECHNIQUE: One view of the chest was acquired. COMPARISON: [facility], CR, XR CHEST 1VW (PORTABLE), 04/09/2016, 5: 47. FINDINGS: Surgical changes and devices: Postoperative changes of the chest are again evident. Lungs and pleura: There are low lung volumes. Increased lung markings are evident within the bilateral lung bases. No large effusion or definite pneumothorax is appreciated. The pulmonary vasculature slightly prominent. Mediastinum: Mediastinal contours appear normal. Heart size is normal. There is aortic atherosclerosis. Bones and chest wall: No suspicious bony lesions. Overlying soft tissues appear unremarkable. IMPRESSION: 1. Mild bibasilar atelectasis. Superimposed pneumonia is felt to be less likely. 2. Mild vascular congestion without overt heart failure. Dictated by: Harish Waddell M.D. on 05/11/2017 at 14:37 Approved by: Harish Waddell M.D. on 05/11/2017 at 14:39 12-lead ECG EKG on May 11: Atrial fibrillation at a rate of 90 with Q in 3 and aVF Assessment & Plan 81-year-old male past medical history most significant for new onset atrial fibrillation in conjunction with end-stage renal disease dialysis dependent, admitted on recommendation of cardiology for expectant cardioversion following medical evaluation #Orthopnea/Shortness of Breath, acute, present on admission -Most likely related to both combination of RVR atrial fibrillation with resultant acute systolic congestive heart failure -Post renal dialysis yesterday and and today and is considering another dialysis session tomorrow #Congestive heart failure, systolic type, acute, present on admission - Discussing this case with Dr Chacon, believes Orthopnea is the result of a progressive heart failure in the setting of volume overload - As blood pressures remain low, HD has been less aggressive due to concern for producing worsening hypotension, rate control further complicated by inconsistent metoprolol dosing. - Supplemental oxygen as needed, problem base treatment as detailed below - Pt taking Torsemide at home, this would suggest the ability to create some urine -Repeat chest x-rays pending a day -Echocardiogram done but results pending. -I did speak with Dr. Castro, cardiology, today who reiterates Dr. Chacon's plan to get more fluid off of this patient ,continue on oral anticoagulation and potentially cardioversion in the next several weeks. #Atrial fibrillation, RVR, acute, present on admission - Patient has not responded well to rate control therapy both given after dialysis in addition to borderline low blood pressures - We will monitor on telemetry - Cardiology requesting admission, will consider cardioversion in house proceeded by ADELA - Given difficulties in achieving stable INR, will convert patient to Eliquis at admit, renally dosed at 2.5mg PO BID on recommendation from Dr Chacon. #End stage renal disease dialysis dependent - Continue patient on home medications - Appreciate nephrology consultation - May be possible for achieve more aggressive volume removal in hospital setting given coomorbid hypotension. #Coronary artery disease, history thereof - Continue outpatient medications this time including statin, dual-antiplatelet therapy consisting of aspirin and Plavix therapy, and THI inhibitor. - Note: With the initiation of Eliquis, this may be reconsidered during hospital stay, however give kael of stenting will continue at this time to confirm with cardiology if all need to be continued VTE Prophylaxis: Other VTE Mechanical Devices: Intermittant Pneumatic CD Resuscitation Status: CPR: Attempt Resuscitation Time spent 30 minutes Radha Perez MD May 13, 2017 13:55
[2017-05-13] MEDS: Polyethylene Glycol (PEG) 17 Gm Powder PO PRN (15:37)
--- NOTE | 2017-05-13 17:56 | NUR ---
Elevated HR w/ activity A fib 120-140's w/ mild activity such as sitting at side of bed/standing. A.m. metoprolol held for dialysis, post dialysis, patient BP stable/HR elevated, made aware, order to admin a.m. dose of metoprolol tartrate 25mg. 2L NC placed, SpO2 90% on RA & RR 24-28. States his breathing is better then when he came in. Continuing to monitor.
[2017-05-13] MEDS: oxyCODONE-Acetamin 10-325 mg Tablet PO PRN (23:59)
[2017-05-14] VITALS (13 sets, daily range): BP systolic 84–116; BP diastolic 56–76; PULSE 86–118; RESP 18–24; O2SAT 91–95
--- NOTE | 2017-05-14 04:37 | NUR ---
Pain/Tele Pt c/o general pain 11/18 and was given Percocet 10-325mg which was helpful per pt. Schedule one time Metoprolol 25mg given; Tele Afib hr 139 per welding technician and hr reduced to 106. Care continues.
[2017-05-14] MEDS: Pantoprazole 40 mg ER24 Tablet PO SCH (06:21)
[2017-05-14] MEDS ORDERED: MeTOProlol 1 mg/mL 5 mL Inj IVPUSH ONE (07:05)
[2017-05-14] MEDS ORDERED: Albumin 25% 25 Gm/100 mL IV ONE (08:00)
--- NOTE | 2017-05-14 09:01 | NUR ---
Off Unit: Patient transported to [facility] rm #[id number] via bed accompanied by DIRECTOR OF ANALYTICS. Albumin accompanied patient, systems planner aware. Attempt to call report to MOC RN. NVC RN to return call. airframe and powerplant technician notified.
--- NOTE | 2017-05-14 12:15 | NUR ---
Dialysis note: 2 1/2 hrs PUF 2000 ml net UF WESLEY fistula, accessed w/ no problems Pls see DTR for VS details Qb 300 No heparin given O2 @ 2L via NC on during tx Albumin 25% 100 ml IV given as ordered Tolerated treatment, slept at intervals Fistula needle sites clotted w/in 10 min Stable condition at end of tx Report given to Gloria ESPINOZA
--- NOTE | 2017-05-14 12:49 | PCM.PNMED ---
Subjective Date of Service May 14, 2017 Subjective Patient still having some issues with rate control. He still notes some shortness of breath with exertion. Exam Vital Signs Vital Sign - Last Date Time Temp Pulse Resp B/P Pulse Ox O2 Delivery O2 Flow Rate FiO2 05/14/17 12:32 37.1 86 18 96/59 94 05/14/17 07:31 Supplement Oxygen 05/14/17 04:21 2.00 Intake and Output 05/13/17 05/13/17 05/14/17 Cumulative From/Thru 15:00 23:00 07:00 05/11/17 13:40 - 05/14/17 06:17 Intake Total 837 ml 200 ml 2264 ml Output Total 2000 ml 150 ml 770 ml 5620 ml Balance -2000 ml 687 ml -570 ml -3356 ml Intake Oral 737 ml 200 ml 2154 ml IV Total 100 ml 110 ml Output Urine Total 150 ml 770 ml 1620 ml Ultrafiltrate 2000 ml 4000 ml # Bowel Movements 0 0 1 Exam Past usual: Elderly male in no acute distress Head: Normocephalic atraumatic Chest: Clear to auscultation Cor: Irregular regular rate and rhythm S1-S2 tachycardic Abdomen: Soft nontender bowel sounds present Extremities: No pedal edema Neuro: Alert and oriented 3, motor strength is intact bilaterally Lab and Diagnostics Laboratory Tests 72 Hours Test 05/11/17 14:10 05/11/17 17:09 05/12/17 05:20 05/12/17 12:26 White Blood Count 3.4th/mm3 (3.8-10.1) 4.8th/mm3 (3.8-10.1) Red Blood Count 3.10mil/mm3 (4.40-5.80) 3.13mil/mm3 (4.40-5.80) Hemoglobin 10.1g/dL (13.8-17.2) 10.4g/dL (13.8-17.2) Hematocrit 31.2% (41.0-50.0) 31.5% (41.0-50.0) Mean Corpuscular Volume 100.6fL (81-100) 100.6fL (81-100) Mean Corpuscular Hemoglobin 32.6pg (27.0-35.0) 33.2pg (27.0-35.0) Mean Corpuscular Hemoglobin Concent 32.4% (32.0-37.0) 33.0% (32.0-37.0) Red Cell Distribution Width 13.4% (12.3-15.4) 13.5% (12.3-15.4) Platelet Count 168bil/L (150-400) 164bil/L (150-400) Neutrophils (%) (Auto) 53.2% (40-74) 62.8% (40-74) Lymphocytes (%) (Auto) 26.7% (14-46) 21.5% (14-46) Monocytes (%) (Auto) 8.7% (4-12) 8.4% (4-12) Eosinophils (%) (Auto) 10.5% (0-5) 6.7% (0-5) Basophils (%) (Auto) 0.9% (0-3) 0.4% (0-3) Sodium Level 138mEq/L (134-144) 139mEq/L (134-144) Potassium Level 3.5mEq/L (3.5-5.2) 4.2mEq/L (3.5-5.2) Chloride Level 96mEq/L (97-108) 98mEq/L (97-108) Carbon Dioxide Level 29mmol/L (18-29) 25mmol/L (18-29) Blood Urea Nitrogen 14mg/dL (8-27) 24mg/dL (8-27) Creatinine 3.04mg/dL (0.76-1.27) 3.66mg/dL (0.76-1.27) Estimat Glomerular Filtration Rate 21mL/min (>59) 17mL/min (>59) Glucose Level 115mg/dL (60-99) 98mg/dL (60-99) Calcium Level 8.7mg/dL (8.5-10.1) 9.4mg/dL (8.5-10.1) Magnesium Level 1.9mg/dL (1.6-2.6) Total Bilirubin 0.3mg/dL (0.0-1.2) Aspartate Amino Transf (AST/SGOT) 8U/L (0-50) Alanine Aminotransferase (ALT/SGPT) 9U/L (0-44) Alkaline Phosphatase 74U/L (25-160) Troponin T 0.028ug/L (0.0-0.011) 0.021ug/L (0.0-0.011) Pro-B-Type Natriuretic Peptide 44173ep/mL (0-486) Total Protein 6.1g/dL (6.4-8.4) Albumin 3.5g/dL (3.4-5.0) Hold Mendez Top Tube Received (Received) Urine Color Yellow (YELLOW) Urine Appearance Clear (CLEAR,HAZY) Urine pH 8.0 (5.0-8.0) Urine Specific [place] 1.015 (1.003-1.035) Urine Protein 100mg/dL (NEG,TRACE) Urine Glucose (UA) Negativemg/dL (NEGATIVE) Urine Ketones Negativemg/dL (NEGATIVE) Urine Occult Blood Trace (NEGATIVE) Urine Nitrite Negative (NEGATIVE) Urine Bilirubin Negative (NEGATIVE) Urine Urobilinogen Normalmg/dL (NORMAL) Urine Leukocyte Esterase Negative (NEGATIVE) Urine RBC 0-2/hpf (0-2) Urine WBC 0-5/hpf (0-5) Urine Epithelial Cells Few/hpf (NONE-MOD) Urine Crystals None seen (NONE SEEN) Urine Bacteria Few/hpf (NONE-FEW) Urine Hyaline Casts None/lpf (NONE) Urine Granular Casts None seen (NONE SEEN) Urine Waxy Casts None seen (NONE SEEN) Urine Red Blood Cell Casts None seen (NONE SEEN) Urine White Blood Cell Casts None seen (NONE SEEN) Urine Mucus None seen (None Seen) Urine Trichomonas None seen (NONE SEEN) Urine Yeast None (NONE SEEN) Urinalysis Comment None Urine Culture Reflexed Not indicated Test 05/12/17 12:40 05/12/17 18:59 05/13/17 14:20 05/14/17 05:55 Sodium Level 137mEq/L (134-144) 142mEq/L (134-144) 141mEq/L (134-144) Potassium Level 3.9mEq/L (3.5-5.2) 4.6mEq/L (3.5-5.2) 4.3mEq/L (3.5-5.2) Chloride Level 97mEq/L (97-108) 99mEq/L (97-108) 99mEq/L (97-108) Carbon Dioxide Level 25mmol/L (18-29) 27mmol/L (18-29) 27mmol/L (18-29) Blood Urea Nitrogen 26mg/dL (8-27) 10mg/dL (8-27) 17mg/dL (8-27) Creatinine 4.17mg/dL (0.76-1.27) 2.06mg/dL (0.76-1.27) 3.20mg/dL (0.76-1.27) Estimat Glomerular Filtration Rate 15mL/min (>59) 33mL/min (>59) 20mL/min (>59) Glucose Level 124mg/dL (60-99) 99mg/dL (60-99) 120mg/dL (60-99) Calcium Level 9.5mg/dL (8.5-10.1) 9.5mg/dL (8.5-10.1) 9.7mg/dL (8.5-10.1) Troponin T 0.025ug/L (0.0-0.011) Result Diagram: 05/12/17 0520 05/14/17 0555 X-Rays, CTs and MRIs PROCEDURE: X-RAY CHEST ONE VIEW, PORTABLE ([id number]) INDICATIONS: orthopnea TECHNIQUE: One view of the chest was acquired. COMPARISON: [facility], CR, XR CHEST 1VW (PORTABLE), 04/09/2016, 5: 47. FINDINGS: Surgical changes and devices: Postoperative changes of the chest are again evident. Lungs and pleura: There are low lung volumes. Increased lung markings are evident within the bilateral lung bases. No large effusion or definite pneumothorax is appreciated. The pulmonary vasculature slightly prominent. Mediastinum: Mediastinal contours appear normal. Heart size is normal. There is aortic atherosclerosis. Bones and chest wall: No suspicious bony lesions. Overlying soft tissues appear unremarkable. IMPRESSION: 1. Mild bibasilar atelectasis. Superimposed pneumonia is felt to be less likely. 2. Mild vascular congestion without overt heart failure. Dictated by: Harish Waddell M.D. on 05/11/2017 at 14:37 Approved by: Harish Waddell M.D. on 05/11/2017 at 14:39 12-lead ECG EKG on May 11: Atrial fibrillation at a rate of 90 with Q in 3 and aVF Cardiac Echo Impressions Results are still not available from May 12. Assessment & Plan 81-year-old male past medical history most significant for new onset atrial fibrillation in conjunction with end-stage renal disease dialysis dependent, admitted on recommendation of cardiology for expectant cardioversion following medical evaluation #Orthopnea/Shortness of Breath, acute, present on admission -Most likely related to both combination of RVR atrial fibrillation with resultant acute systolic congestive heart failure -Patient's having another dialysis session today #Congestive heart failure, systolic type, acute, present on admission - Discussing this case with Dr Chacon, believes Orthopnea is the result of a progressive heart failure in the setting of volume overload - As blood pressures remain low, HD has been less aggressive due to concern for producing worsening hypotension, rate control further complicated by inconsistent metoprolol dosing. - Supplemental oxygen as needed, problem base treatment as detailed below - Pt taking Torsemide at home, this would suggest the ability to create some urine -Repeat chest x-rays pending a day -Echocardiogram done but results pending. -I did speak with Dr. Castro, cardiology, today who reiterates Dr. Chacon's plan to get more fluid off of this patient ,continue on oral anticoagulation and potentially cardioversion in the next several weeks. #Atrial fibrillation, RVR, acute, present on admission - Patient has not responded well to rate control therapy both given after dialysis in addition to borderline low blood pressures - We will monitor on telemetry - Cardiology requesting admission, will consider cardioversion in house proceeded by ADELA - Given difficulties in achieving stable INR, will convert patient to Eliquis at admit, renally dosed at 2.5mg PO BID on recommendation from Dr Chacon. -Have again increased his oral metoprolol to 37.5 mg by mouth twice a day and will also order IV metoprolol when necessary heart rate greater than 120 -If blood pressure will not tolerate metoprolol will go ahead and use digoxin both by mouth and IV for better rate control #End stage renal disease dialysis dependent - Continue patient on home medications - Appreciate nephrology consultation - May be possible for achieve more aggressive volume removal in hospital setting given coomorbid hypotension. #Coronary artery disease, history thereof - Continue outpatient medications this time including statin, dual-antiplatelet therapy consisting of aspirin and Plavix therapy, and THI inhibitor. - Note: With the initiation of Eliquis, this may be reconsidered during hospital stay, however give kael of stenting will continue at this time to confirm with cardiology if all need to be continued VTE Prophylaxis: Other VTE Mechanical Devices: Intermittant Pneumatic CD Resuscitation Status: CPR: Attempt Resuscitation Time spent 20 minutes Radha Perez MD May 14, 2017 12:49
[2017-05-14] MEDS ORDERED: Digoxin 0.25 mg/mL 2 mL Inj IV ONE (12:50)
[2017-05-14] MEDS ORDERED: MeTOProlol 1 mg/mL 5 mL Inj IVPUSH PRN (12:55)
--- NOTE | 2017-05-14 17:58 | NUR ---
Social Work: [facility] SW unable to obtain signature for [facility]. Patient was off floor most of day, Patient is now in room asleep. Patient did not wake when called by name. SW will reattempt at a later time. GAURAV Dubose
[2017-05-14] MEDS: oxyCODONE-Acetamin 10-325 mg Tablet PO PRN (21:10)
[2017-05-14] MEDS: Polyethylene Glycol (PEG) 17 Gm Powder PO PRN (21:14)
[2017-05-15] VITALS (11 sets, daily range): BP systolic 91–108; BP diastolic 55–69; PULSE 74–97; RESP 16–24; O2SAT 91–95
--- NOTE | 2017-05-15 05:42 | NUR ---
Pain At HS PT complained of generalized for chronic pain 2/10, requesting Oxycontin for comfort, Oxycontin 10-325 given with good effect and PT rested quietly through the night.
[2017-05-15] MEDS ORDERED: 0.9% Sodium Chloride 250 ML IV ONE ×2 (08:20→14:04)
[2017-05-15] MEDS: Pantoprazole 40 mg ER24 Tablet PO SCH (08:29)
--- NOTE | 2017-05-15 09:25 | NUR ---
Social Work-initial assessment: Data:See initial assessment. Pt is a 81 y/o male who was admitted on 05/11/17 for new Afib per H&P. Pt's insurance is [employer] and PCP is Valdo Horvath MD.EMR Reviewed. Pt's readmission score is 5-high risk. SW met with pt at bedside, SW role explained. Pt is alert and oriented x3. Pt resides at home alone on [address] where he remains independent with ADLs. Pt uses a fww at baseline and drives. Pt has no HH or SNF history. Pt has no [facility] care insurance or VA benefit. SW discussed DPOA/ advanced directive, pt confirms this has been completed, SW encouraged a copy to be brought in. Pt goes to dialysis T//Sat in [facility]. No concerns noted around pt's capacity for self care from RN or MD. No SW orders from MD. SW provided pt with discharge planning checklist and encouraged pt to call with any questions,phone number provided on white board in room. Pt confirms he will transport himself home. No anticipated discharge needs. SW will continue to follow if needs arise. Assessment:Pt who is independent at baseline. Plan:Pt to discharge home when medically stable via POV. No anticipated discharge needs. SW will continue to follow if needs arise. GAURAV Nichols Addendum: 05/15/17 at 0929 by CARLITO HILLS SS Amended: Links added.
--- NOTE | 2017-05-15 10:32 | PCM.PNNEPH ---
Subjective Date of Service May 15, 2017 Subjective HD x 3 consecutive days. Low BP noted, NS 250 ml given. (+) MOSLEY, Afib with RVR. Exam Vital Signs Vital Sign - Last Date Time Temp Pulse Resp B/P Pulse Ox O2 Delivery O2 Flow Rate FiO2 05/15/17 08:47 36.6 96 16 94/57 92 Nasal Cannula 1.00 Intake and Output 05/14/17 05/14/17 05/15/17 Cumulative From/Thru 15:00 23:00 07:00 05/11/17 13:40 - 05/15/17 05:14 Intake Total 855 ml 3119 ml Output Total 2000 ml 50 ml 7670 ml Balance -2000 ml 805 ml -4551 ml Intake Oral 855 ml 3009 ml IV Total 110 ml Output Urine Total 50 ml 1670 ml Ultrafiltrate 2000 ml 6000 ml # Bowel Movements 1 Exam General: Alert, Oriented X3, Cooperative Head: Normal, Facial Expression & Appearance Eyes: PERRLA, EOMI Mouth: Lips, Mouth Normal, Mucous Membr Moist/[place] Neck: Supple, No Thyromegaly (+) JVD Chest & Lungs: Fine crackles at bases. Cardiovascular: Other (irregular rhythm) Abdomen: Non-tender, Non-distended, No hepatosplenomegaly Extremities: No cyanosis/clubbing/edma bilat, (+) AVF. Lab and Diagnostics Result Diagram: 05/12/17 0520 05/15/17 0540 X-Rays, CTs and MRIs PROCEDURE: X-RAY CHEST ONE VIEW, PORTABLE ([id number]) INDICATIONS: orthopnea TECHNIQUE: One view of the chest was acquired. COMPARISON: [facility], CR, XR CHEST 1VW (PORTABLE), 04/09/2016, 5: 47. FINDINGS: Surgical changes and devices: Postoperative changes of the chest are again evident. Lungs and pleura: There are low lung volumes. Increased lung markings are evident within the bilateral lung bases. No large effusion or definite pneumothorax is appreciated. The pulmonary vasculature slightly prominent. Mediastinum: Mediastinal contours appear normal. Heart size is normal. There is aortic atherosclerosis. Bones and chest wall: No suspicious bony lesions. Overlying soft tissues appear unremarkable. IMPRESSION: 1. Mild bibasilar atelectasis. Superimposed pneumonia is felt to be less likely. 2. Mild vascular congestion without overt heart failure. Dictated by: Harish Waddell M.D. on 05/11/2017 at 14:37 Approved by: Harish Waddell M.D. on 05/11/2017 at 14:39 12-lead ECG EKG on May 11: Atrial fibrillation at a rate of 90 with Q in 3 and aVF Cardiac Echo Impressions Results are still not available from May 12. Plan Impression 1. End-stage renal disease on HD. HDx3 consecutive days given fluid overload. Low BP noted, NS 250 ml IV bolus. Will hold HD today. 2. Shortness of breath secondary to fluid overload and Afib with RVR. 3. Coronary artery disease, status post AR with coronary artery bypass and stent placement. 4. Dyslipidemia. 5. Nephrolithiasis. 6. Renal mass and hematuria s/p embolization 7. Mitral regurgitation and aortic stenosis. Plan: Hold HD today. Next HD in am with UF 0.5-1L. Repeat CXR. The rest of management as per primary team. Yves Mata MD May 15, 2017 10:32
[2017-05-15] MEDS ORDERED: Digoxin 0.25 mg/mL 2 mL Inj IV ONE (12:10)
--- NOTE | 2017-05-15 13:47 | DRSVH ---
PROCEDURE: X-RAY CHEST ONE VIEW, PORTABLE ([id number]) INDICATIONS: CONGESTIVE HEART FAILURE; ESRD TECHNIQUE: One view of the chest was acquired. COMPARISON: [facility], CR, XR CHEST 1VW (PORTABLE), 05/12/2017, 11:54. FINDINGS: Surgical changes and devices: Postsurgical changes are redemonstrated in the mediastinum. Lungs and pleura: There is decreased but persistent mild pulmonary edema. There are also persistent small bilateral pleural effusions. Patchy bibasilar opacities are redemonstrated consistent with at electasis, consolidation, or aspiration. Mediastinum: Mediastinal contours appear unchanged. Heart size is borderline enlarged. Bones and chest wall: No suspicious bony lesions. Overlying soft tissues appear unremarkable. IMPRESSION: 1. Decreased but persistent mild pulmonary edema. 2. Persistent bilateral small pleural effusions and bibasilar atelectasis, consolidation, or aspirat ion. Dictated by: Negrito Carreno M.D. on 05/15/2017 at 13:39 Approved by: Negrito Carreno M.D. on 05/15/2017 at 13:45
--- NOTE | 2017-05-15 14:50 | PCM.PNMED ---
Subjective Date of Service May 15, 2017 Subjective Patient continues to feel although somewhat improved with his shortness of breath but continues to have RVR A. fib when he does anything such as walking. He also has been having some relatively low blood pressures after yesterday's dialysis. Exam Vital Signs Vital Sign - Last Date Time Temp Pulse Resp B/P Pulse Ox O2 Delivery O2 Flow Rate FiO2 05/15/17 12:52 36.9 87 16 91/62 94 Room Air 05/15/17 08:47 1.00 Intake and Output 05/14/17 05/14/17 05/15/17 Cumulative From/Thru 15:00 23:00 07:00 05/11/17 13:40 - 05/15/17 05:14 Intake Total 855 ml 3119 ml Output Total 2000 ml 50 ml 7670 ml Balance -2000 ml 805 ml -4551 ml Intake Oral 855 ml 3009 ml IV Total 110 ml Output Urine Total 50 ml 1670 ml Ultrafiltrate 2000 ml 6000 ml # Bowel Movements 1 Exam Constitutional: Elderly male in no acute distress sitting at the edge of his bed Head: Normocephalic atraumatic Chest: Scant crackles at his bases Cor: Irregular regular rate and rhythm S1-S2 Abdomen: Soft nontender bowel sounds present Extremities: No pedal edema Neuro: Alert and oriented 3, motor strength is intact bilaterally IVs and Medications Medications Reviewed: Medications were reviewed in detail Lab and Diagnostics Laboratory Tests 72 Hours Test 05/12/17 18:59 05/13/17 14:20 05/14/17 05:55 05/14/17 12:44 Troponin T 0.025ug/L (0.0-0.011) Sodium Level 142mEq/L (134-144) 141mEq/L (134-144) 139mEq/L (134-144) Potassium Level 4.6mEq/L (3.5-5.2) 4.3mEq/L (3.5-5.2) 4.2mEq/L (3.5-5.2) Chloride Level 99mEq/L (97-108) 99mEq/L (97-108) 96mEq/L (97-108) Carbon Dioxide Level 27mmol/L (18-29) 27mmol/L (18-29) 28mmol/L (18-29) Blood Urea Nitrogen 10mg/dL (8-27) 17mg/dL (8-27) 21mg/dL (8-27) Creatinine 2.06mg/dL (0.76-1.27) 3.20mg/dL (0.76-1.27) 3.45mg/dL (0.76-1.27) Estimat Glomerular Filtration Rate 33mL/min (>59) 20mL/min (>59) 18mL/min (>59) Glucose Level 99mg/dL (60-99) 120mg/dL (60-99) 105mg/dL (60-99) Calcium Level 9.5mg/dL (8.5-10.1) 9.7mg/dL (8.5-10.1) 9.8mg/dL (8.5-10.1) Test 05/15/17 05:40 05/15/17 10:45 Sodium Level 139mEq/L (134-144) Potassium Level 4.2mEq/L (3.5-5.2) Chloride Level 96mEq/L (97-108) Carbon Dioxide Level 26mmol/L (18-29) Blood Urea Nitrogen 29mg/dL (8-27) Creatinine 4.32mg/dL (0.76-1.27) Estimat Glomerular Filtration Rate 14mL/min (>59) Glucose Level 121mg/dL (60-99) Calcium Level 9.7mg/dL (8.5-10.1) Digoxin Level 0.6nG/mL (0.9-2.0) Result Diagram: 05/12/17 0520 05/15/17 0540 X-Rays, CTs and MRIs PROCEDURE: X-RAY CHEST ONE VIEW, PORTABLE ([id number]) INDICATIONS: orthopnea TECHNIQUE: One view of the chest was acquired. COMPARISON: [facility], CR, XR CHEST 1VW (PORTABLE), 04/09/2016, 5: 47. FINDINGS: Surgical changes and devices: Postoperative changes of the chest are again evident. Lungs and pleura: There are low lung volumes. Increased lung markings are evident within the bilateral lung bases. No large effusion or definite pneumothorax is appreciated. The pulmonary vasculature slightly prominent. Mediastinum: Mediastinal contours appear normal. Heart size is normal. There is aortic atherosclerosis. Bones and chest wall: No suspicious bony lesions. Overlying soft tissues appear unremarkable. IMPRESSION: 1. Mild bibasilar atelectasis. Superimposed pneumonia is felt to be less likely. 2. Mild vascular congestion without overt heart failure. Dictated by: Harish Waddell M.D. on 05/11/2017 at 14:37 Approved by: Harish Waddell M.D. on 05/11/2017 at 14:39 12-lead ECG EKG on May 11: Atrial fibrillation at a rate of 90 with Q in 3 and aVF Cardiac Echo Impressions Results are still not available from May 12. Assessment & Plan 81-year-old male past medical history most significant for new onset atrial fibrillation in conjunction with end-stage renal disease dialysis dependent, admitted on recommendation of cardiology for expectant cardioversion following medical evaluation #Orthopnea/Shortness of Breath, acute, present on admission -Most likely related to both combination of RVR atrial fibrillation with resultant acute systolic congestive heart failure -Patient has no dialysis schedule for today -Patient was relatively hypotensive got 250 mg normal saline remain slightly hypotensive we will get another 250 mils of normal saline #Congestive heart failure, systolic type, acute, present on admission - Discussing this case with Dr Chacon, believes Orthopnea is the result of a progressive heart failure in the setting of volume overload - As blood pressures remain low, HD has been less aggressive due to concern for producing worsening hypotension, rate control further complicated by inconsistent metoprolol dosing. - Supplemental oxygen as needed, problem base treatment as detailed below - Pt taking Torsemide at home, this would suggest the ability to create some urine -Repeat chest x-rays pending today -Echocardiogram done but results pending. #Atrial fibrillation, RVR, acute, present on admission - Patient has not responded well to rate control therapy both given after dialysis in addition to borderline low blood pressures - We will monitor on telemetry - Cardiology requesting admission, will consider cardioversion in house proceeded by ADELA - Given difficulties in achieving stable INR, will convert patient to Eliquis at admit, renally dosed at 2.5mg PO BID on recommendation from Dr Chacon. -Have again increased his oral metoprolol to 37.5 mg by mouth twice a day and will also order IV metoprolol when necessary heart rate greater than 120 -If blood pressure will not tolerate metoprolol will go ahead and use digoxin both by mouth and IV for better rate control -Getting some normal saline fluid and hopefully this will also help his RVR A. fib #End stage renal disease dialysis dependent - Continue patient on home medications - Appreciate nephrology consultation -The directions per nephrology no dialysis today #Coronary artery disease, history thereof - Continue outpatient medications this time including statin, dual-antiplatelet therapy consisting of aspirin and Plavix therapy, and THI inhibitor. - Note: With the initiation of Eliquis, this may be reconsidered during hospital stay, however give kael of stenting will continue at this time to confirm with cardiology if all need to be continued VTE Prophylaxis: Other VTE Mechanical Devices: Intermittant Pneumatic CD Resuscitation Status: CPR: Attempt Resuscitation Time spent 25 minutes Radha Perez MD May 15, 2017 14:50
[2017-05-15 15:06] LABS: Unsaturated Iron Binding 118.4 ug/dL
--- NOTE | 2017-05-15 17:56 | NUR ---
Constipation Pt reports not having BM for 2 days, likes to be regular. Reports to have tried miralax and senna last night with no success. Requests to have glycerine suppository. MD notified, order given. Medication administered. Pt self administered (by request) suppository and reports having a small BM.
--- NOTE | 2017-05-15 18:18 | NUR ---
HR/Hypotension Pt in Afib with HR in 80-90 w/ occ PVCs, towards end up shift going to 95-105 and up to 130 with activity. Pt asymptomatic, denies dizziness, or heart palpitations. Pt instructed to use call light, bed alarm on for safety. MD informed of status, medications (Digoxin) and NS 250 bolus x2 ordered. Tele reports no change in HR with exception of HR elevating into 95-105. BP remaining around 90/60. Continuing to monitor.
[2017-05-16] VITALS (12 sets, daily range): BP systolic 90–111; BP diastolic 56–66; PULSE 79–109; RESP 16–20; O2SAT 92–99
[2017-05-16] MEDS: Pantoprazole 40 mg ER24 Tablet PO SCH (05:34)
--- NOTE | 2017-05-16 06:20 | NUR ---
NOC PT slept well off and on. Denies any pain. UP ad lucy to BR. Gait is steady. [place] alarm removed. HR has been below 100 all shift. Remains in afib. RUE fistula +thrill/bruit. Skin to UE is dry and discolored due to renal fx. BP remains a little hypotensive. Denies any SOB. Tele shows afib with PVC's. Will CTM HR.
[2017-05-16] MEDS ORDERED: Albumin 25% 25 Gm/100 mL IV PRN (09:00)
--- NOTE | 2017-05-16 09:13 | PCM.DICHF ---
CHF Discharge Instructions Dates of Hospitalization Date of Hospital Admission May 11, 2017 at 15:59 Date of Discharge: May 16, 2017 Providers Admitting Physician: Carlton Steel DO Primary Care Physician: Valdo Horvath MD Attending Physician: Radha Perez MD Diagnosis at Time of Discharge Diagnosis at time of discharge RVR A. fib with acute systolic congestive heart failure secondary to rapid rate Problems: Labs Laboratory Tests Test Range/Units 05/11/17 14:10 05/12/17 18:59 05/15/17 05:40 05/16/17 05:40 Magnesium Level 1.6-2.6 mg/dL 1.9 Total Bilirubin 0.0-1.2 mg/dL 0.3 Aspartate Amino Transf (AST/SGOT) 0-50 U/L 8 Alanine Aminotransferase (ALT/SGPT) 0-44 U/L 9 Alkaline Phosphatase 25-160 U/L 74 Pro-B-Type Natriuretic Peptide 0-486 pg/mL 03803 Total Protein 6.4-8.4 g/dL 6.1 Albumin 3.4-5.0 g/dL 3.5 Hold Mendez Top Tube Received Received Troponin T 0.0-0.011 ug/L 0.025 Iron Level 35-150 ug/dL 31 Total Iron Binding Capacity 250-450 ug/dL 149 Percent Iron Saturation 15-50 %sat 21 Unsaturated Iron Binding ug/dL 118.4 Sodium Level 134-144 mEq/L 138 Potassium Level 3.5-5.2 mEq/L 4.5 Chloride Level 97-108 mEq/L 99 Carbon Dioxide Level 18-29 mmol/L 26 Blood Urea Nitrogen 8-27 mg/dL 36 Creatinine 0.76-1.27 mg/dL 4.83 Estimat Glomerular Filtration Rate >59 mL/min 12 Glucose Level 60-99 mg/dL 92 Calcium Level 8.5-10.1 mg/dL 9.5 Discharge Medications Other Medication Instructions You have received instructions on the medications your physician has prescribed at discharge. A list of these medications has been provided to you. Keep this and a list of all current medications with you. Keep the dates when you received the Flu and Pneumococcal (Pneumonia) Vaccines. Last known date of receiving Flu Vaccine declines Last known date of receiving Pneumococcal (Pneumonia) Vaccine 11/12/14 Diet CHF Discharge Diet: Low fat, Low Sodium Diet Instructions CHF Low Salt diet ( 2 grams or less sodium/day) Choose foods and drinks with low or no salt. Remove salt shaker from the table. Read Nutritional Facts labels. Activity CHF Discharge Activity: Balance rest and activity, Stop when short breath/pain/ dizzy Weight Monitoring 1. Weigh yourself every day at the same time and write it down. 2. Take your weight log to your doctor visits. 3. Call your doctor if you gain 3-5 pounds over 2-3 days. 4. Your weight today is 193.78 lbs. Additional Instructions CHF Teaching Packet given and: Yes Smoking--Tobacco Use If you smoke, you are strongly encouraged to stop. If you have recently quit smoking, CONGRATULATIONS. For further information to stop smoking or to remain smoke-free, Follow Up Plan Follow Up Plan Dr. Chacon, roll examiner Follow Up: Days (3-5 days, sooner if problems) Report or call your Doctor REPORT TO YOUR DOCTOR OR SEEK MEDICAL ATTENTION: *Shortness of breath or have more difficulty breathing. *Swelling of your feet, ankles, hands or abdomen. *Feeling tired with normal activity or experiencing dizziness or fainting. *Trouble sleeping or waking up feeling short of breath or coughing. *Chest pain or pressure. *Weight gain of 3-5 pounds over 2-3 days. *Inability to take medications or follow treatment plan Heart Attach warning signs HEART ATTACK WARNING SIGNS * Chest discomfort. *Discomfort or pain in one or both arms, back, neck, jaw or stomach. *Shortness of breath. *Breaking out in a cold sweat, nausea, or lightheadedness. If you're having heart attack warning signs: CALL . DON'T WAIT MORE THAN A FEW MINUTES - 5 MINUTES AT MOST - TO CALL . Radha Perez MD May 16, 2017 09:13
[2017-05-16] MEDS ORDERED: METO25TA6 PO (09:19)
[2017-05-16] MEDS ORDERED: DIGO125T73 AD (09:19)
[2017-05-16] MEDS ORDERED: APIX5TAB PO (09:19)
--- NOTE | 2017-05-16 09:33 | DRSVH ---
[facility] [address] [place] [address] Echocardiogram Report Name: ОЛЬГА CLARK Date: 09/2016 Height: 6 9 in Hospital Exam Location: [facility] Weight: 1 97 lb Gender: Male BSA: 2B1 m2 : 1935 Age: 81 yrs BP: 114/7 2 mmHg Reason For Study: Atrial fibrillation Ordering Physician: [facility]OSPITALIST [facility] Performed By: Opal Rome Referring Physician: Baldev Pradhan Interpretation Summary Afib with RVR Moderately dilated LV; there is global hypokinesis with severe apical hypokinesis. EF is 30-35%. EPSS is 1 consistent with cardiomyopathy. There is severe LA enlargement and moderate RA enlargement. Normal RV size. Aortic valve leaflets are severely thickened and calcified with limited leaflet excursion. In particular right and non-coronary leaflets demonstrate particularly impaired mobility, while left coronary leaflet moves the best. While peak velocity is 2.8 m/sec, this could be low gradient . DVI is 0.32. There is mild MAC with mildly thickened leaflets and moderate associated MR. There is mild TR with estimated PASP of 43 mm Hg. Comapred to prior study afib is new, cardiomyopathy is new. EF is down from 50-55% to 30-35%. Peak aortic velocity is unchanged. Procedure: A two-dimensional transthoracic echocardiogram with color flow and Doppler was performed. The study quality was technically adequate. Comparison is made with the echocardiogram of 04/03/16. The patient was in atrial fibrillation with heart rates between 86 to 157 bpm during the exam. Left Ventricle: The left ventricle is moderately dilated. There is normal left ventricular wall thickness. There is no thrombus. Trabeculae near apex are visualized. No thrombus is observed. A false chord is noted (normal variant). The ejection fraction is estimated to be 30-35%. There is basal anteroseptal wall akinesis. There is mid anteroseptal wall akinesis. There is mid inferoseptal wall akinesis. Diastolic function could not be accurately assessed due to atrial fibrillation. Right Ventricle: The right ventricle is normal size. Right ventricular systolic function has decreased since previous exam. Atria: The left atrium is severely dilated. The right atrium is moderately dilated. A patent foramen ovale is present. Mitral Valve: The mitral valve leaflets appear thickened, but open well. The mitral valve leaflets appear to open well. There is mild mitral annular calcification. There is severe mitral regurgitation. Flow reversal noted in pulmonary veins consistent with significant mitral regurgitation. Aortic Valve: The aortic valve is trileaflet. The aortic valve is moderately calcified. There is discrete nodular thickening of the right coronary cusp. There is mild to moderate aortic stenosis. The aortic valve area is 1.2 centimeters squared by planimetry. The peak aortic velocity is 2.7 m/sec. The peak aortic velocity on the previous exam was 2.8 m/sec. The aortic valve mean gradient is 18 mmHg. There has been no significant change since the previous study. No aortic regurgitation is present. Tricuspid Valve: The tricuspid valve is normal. There is mild tricuspid regurgitation. The right ventricular systolic pressure is estimated at least 64 mmHg assuming a right atrial pressure of 15 mm Hg. Compared to the prior echo exam, there has been an increase in the severity of pulmonary hypertension. Pulmonic Valve: The pulmonic valve leaflets are thin and pliable; valve motion is normal. There is a trace or physiologic amount of pulmonic regurgitation. Great Vessels: The aortic root is normal size. The ascending aorta is at the upper limits of normal in size. The pulmonary is not well visualized. The IVC is dilated (diameter is greater than 2.1 cm) and it collapses less than 50% with a sniff. This suggests a high right atrial pressure of 15 mm Hg. Pericardium/ Pleura There is no pericardial effusion. There is no pleural effusion. MMode/2D Measurements & Calculations LVIDd: 6B4 cm RA long axis: 5B3 cm LVOT diam LVIDs: 5B0 cmLA A2 area: 34B4 cm FS: 22B0 % LA A4 area: 37B6 cm RA area: 21B1 cm AoV Opening EPSS: 1B0 cm LA length (vol): 7B2 cm RA vol: 71B3 ml IVSd: 0B85 cmLA vol: 153B3 ml RA : 34B7 ml/m2 Ao root diam LVPWd: 1B1 cm LA vol index: 74B7 ml/m asc Aorta Diam IVC diam: 2B4 cm MARIA M (plan) LV castrejon. diameter/BSA LV sys. diameter/BSA RVD1 (basal) (cm/m^2): 3B1 (cm/m^2): 2B4 : 5B2 cm : 1B2 cm2 RVD2 (mid) TAPSE: 1B1 cm : 4B3 cm Doppler Measurements & Calculations Ao V2 max MV E max melvin Med Peak E' Melvin TR max melvin : 269B4 cm/sec : 105B1 cm/sec : 350B0 cm/sec Ao max PG E/E' med: 12B6 TR max PB0 mmHg : 29B3 mmHg Lat Peak E' Melvin PA V2 max: 83B6 cm/sec Ao mean PG PA mean PB3 mmHg : 18B4 mmHg E/E' lat: 8B0 PA Accel Time LVOT Max Melvin E/e' average : 0B06 sec : 89B9 cm/sec MARIA M(I,D): 1B7 cm sev ratio Ao V2 mean LV V1 max PG PA V2 mean MARIA M indexed to BSA : 203B6 cm/sec : 52B2 cm/sec (cm^2/m^2): 0B81 Ao V2 VTI LV V1 VTI: 17B2 cm MARIA M(V,D): 1B6 cm2 Reading Physician:09:32 AM
--- NOTE | 2017-05-16 10:02 | NUR ---
Pt off floor to Dialysis, Rm 243 #1. Report given to Marianne ESPINOZA, Tele notified.
--- NOTE | 2017-05-16 10:27 | PCM.DC.MED ---
Discharge Summary Date of Service May 16, 2017 Dates of Hospitalization Date of Hospital Admission May 11, 2017 at 15:59 Date of Discharge: May 16, 2017 Providers: Admitting Physician: Carlton Steel DO Primary Care Physician: Valdo Horvath MD Attending Physician: Radha Perez MD Diagnosis at Time of Discharge Diagnosis at Time of Discharge RVR A. fib with acute systolic congestive heart failure secondary to rapid rate Consultations Cardiology Procedures XRay, CTs & MRIs PROCEDURE: X-RAY CHEST ONE VIEW, PORTABLE ([id number]) INDICATIONS: orthopnea TECHNIQUE: One view of the chest was acquired. COMPARISON: [facility], CR, XR CHEST 1VW (PORTABLE), 04/09/2016, 5: 47. FINDINGS: Surgical changes and devices: Postoperative changes of the chest are again evident. Lungs and pleura: There are low lung volumes. Increased lung markings are evident within the bilateral lung bases. No large effusion or definite pneumothorax is appreciated. The pulmonary vasculature slightly prominent. Mediastinum: Mediastinal contours appear normal. Heart size is normal. There is aortic atherosclerosis. Bones and chest wall: No suspicious bony lesions. Overlying soft tissues appear unremarkable. IMPRESSION: 1. Mild bibasilar atelectasis. Superimposed pneumonia is felt to be less likely. 2. Mild vascular congestion without overt heart failure. Dictated by: Harish Waddell M.D. on 05/11/2017 at 14:37 Approved by: Harish Waddell M.D. on 05/11/2017 at 14:39 ECG 12 Lead EKG on May 11: Atrial fibrillation at a rate of 90 with Q in 3 and aVF Cardiac Echo Impression Echocardiogram Report Name: ОЛЬГА CLARK Date: 09/2016 Height: 6 9 in Hospital Exam Location: [facility] Weight: 1 97 lb Gender: Male BSA: 2B1 m2 : 1935 Age: 81 yrs BP: 114/7 2 mmHg Reason For Study: Atrial fibrillation Ordering Physician: HOSPITALIST [facility] Performed By: Opal Rome Referring Physician: Baldev Hospitalist Interpretation Summary Afib with RVR Moderately dilated LV; there is global hypokinesis with severe apical hypokinesis. EF is 30-35%. EPSS is 1 consistent with cardiomyopathy. There is severe LA enlargement and moderate RA enlargement. Normal RV size. Aortic valve leaflets are severely thickened and calcified with limited leaflet excursion. In particular right and non-coronary leaflets demonstrate particularly impaired mobility, while left coronary leaflet moves the best. While peak velocity is 2.8 m/sec, this could be low gradient . DVI is 0.32. There is mild MAC with mildly thickened leaflets and moderate associated MR. There is mild TR with estimated PASP of 43 mm Hg. Comapred to prior study afib is new, cardiomyopathy is new. EF is down from 50-55% to 30-35%. Peak aortic velocity is unchanged. Brief History This is an 81 yo M with PMH of ESRD, CAD s/p CABG, dyslipidemia, nephrolithiasis , Afib, CHF, renal mass s/p embolization who was sent to ER by his watch inspector final movement due to uncontrolled Afib. Renal was consulted to manage ESRD. He has had worsening shortness of breath over the past 4 days. He was evaluated by his watch inspector final movement and planned to have cardioversion due to unsuccessful rate control with beta-patricia and hypotension. He is a patient of Dr. Khoury. He is dialyzed at [facility] every Monday, and Monday. He had treatment this morning. During my visit, he reports no chest pain, SOB, fever, chills, nausea, vomiting or diarrhea. PAST MEDICAL HISTORY: 1. End-stage renal disease on HD. 2. Coronary artery disease, status post WI with coronary artery bypass and stent placement. 3. Hyperlipidemia. 4. Renal lithiasis. 5. Renal mass and hematuria s/p embolization 6. Mitral regurgitation and aortic stenosis. 7. Atrial fibrillation. 8. Congestive heart failure. 9. Hypertension with hypertensive heart disease and hypertensive nephrosclerosis. PAST SURGICAL HISTORY: 1. s/p CABG 2. AVF creation 3. Lithotripsy SOCIAL HISTORY: h/o alcohol abuse former smoker ALLERGIES: Quinolone, ciprofloxacin FAMILY HISTORY: Significant for heart failure. REVIEW OF SYSTEMS: 14 point ROS performed. Hospital Course 81-year-old male past medical history most significant for new onset atrial fibrillation in conjunction with end-stage renal disease dialysis dependent, admitted on recommendation of cardiology for expectant cardioversion following medical evaluation #Orthopnea/Shortness of Breath, acute, present on admission -Most likely related to both combination of RVR atrial fibrillation with resultant acute systolic congestive heart failure -Patient has no dialysis schedule for today -Patient was relatively hypotensive got 250 mg normal saline remain slightly hypotensive we will get another 250 mils of normal saline #Congestive heart failure, systolic type, acute, present on admission - Discussing this case with Dr Chacon, believes Orthopnea is the result of a progressive heart failure in the setting of volume overload - As blood pressures remain low, HD has been less aggressive due to concern for producing worsening hypotension, rate control further complicated by inconsistent metoprolol dosing. - Supplemental oxygen as needed, problem base treatment as detailed below - Pt taking Torsemide at home, this would suggest the ability to create some urine -Repeat chest x-rays pending today -Echocardiogram showed worsening left ventricular ejection fraction down from 50 -55% to 30-35% (please see report as noted above) -As per Dr. Chacon patient will follow-up in her office for consideration of cardioversion #Atrial fibrillation, RVR, acute, present on admission - Patient has not responded well to rate control therapy both given after dialysis in addition to borderline low blood pressures - We will monitor on telemetry - Cardiology requesting admission, will consider cardioversion in house proceeded by ADELA - Given difficulties in achieving stable INR, will convert patient to Eliquis at admit, renally dosed at 2.5mg PO BID on recommendation from Dr Chacon. -Have again increased his oral metoprolol to 37.5 mg by mouth twice a day but have written hold parameters for systolic blood pressure less than or equal to 100. -Patient's blood pressures were a little bit low given aggressive dialysis to get rid of edema and did initiate IV digoxin which she had good heart rate control with and hence will put on stable dose of digoxin 62.5 g by mouth every 48 hours dosing. #End stage renal disease dialysis dependent - Continue patient on home medications - Appreciate nephrology consultation -Continue outpatient dialysis schedule as per nephrology #Coronary artery disease, history thereof - Continue outpatient medications this time including statin, dual-antiplatelet therapy consisting of aspirin and Plavix therapy, and THI inhibitor. Addendum: Patient's discharge was canceled due to the fact that with ambulating he had RVR A. fib. So please use this as the progress note for the current date of May 16 Exam Vital Signs (Last) Date Time Temp Pulse Resp B/P Pulse Ox O2 Delivery O2 Flow Rate FiO2 05/16/17 09:19 99 05/16/17 08:43 36.7 18 90/56 96 Room Air 05/16/17 08:13 0.50 Exam Constitutional: Elderly male in no acute distress sitting at bedside Head: Normocephalic atraumatic Chest: Clear to auscultation Cor: Irregular irregular rate and rhythm S1-S2 abdomen: Soft nontender bowel sounds present Extremities: No pedal edema Psych: Mood and affect are appropriate Skin: No rashes Neuro: Alert and oriented 3, motor strength is intact bilaterally Test 05/11/17 14:10 05/11/17 17:09 05/12/17 05:20 05/12/17 18:59 Magnesium Level 1.9mg/dL (1.6-2.6) Total Bilirubin 0.3mg/dL (0.0-1.2) Aspartate Amino Transf (AST/SGOT) 8U/L (0-50) Alanine Aminotransferase (ALT/SGPT) 9U/L (0-44) Alkaline Phosphatase 74U/L (25-160) Pro-B-Type Natriuretic Peptide 02146qg/mL (0-486) Total Protein 6.1g/dL (6.4-8.4) Albumin 3.5g/dL (3.4-5.0) Hold Mendez Top Tube Received (Received) Urine Color Yellow (YELLOW) Urine Appearance Clear (CLEAR,HAZY) Urine pH 8.0 (5.0-8.0) Urine Specific [place] 1.015 (1.003-1.035) Urine Protein 100mg/dL (NEG,TRACE) Urine Glucose (UA) Negativemg/dL (NEGATIVE) Urine Ketones Negativemg/dL (NEGATIVE) Urine Occult Blood Trace (NEGATIVE) Urine Nitrite Negative (NEGATIVE) Urine Bilirubin Negative (NEGATIVE) Urine Urobilinogen Normalmg/dL (NORMAL) Urine Leukocyte Esterase Negative (NEGATIVE) Urine RBC 0-2/hpf (0-2) Urine WBC 0-5/hpf (0-5) Urine Epithelial Cells Few/hpf (NONE-MOD) Urine Crystals None seen (NONE SEEN) Urine Bacteria Few/hpf (NONE-FEW) Urine Hyaline Casts None/lpf (NONE) Urine Granular Casts None seen (NONE SEEN) Urine Waxy Casts None seen (NONE SEEN) Urine Red Blood Cell Casts None seen (NONE SEEN) Urine White Blood Cell Casts None seen (NONE SEEN) Urine Mucus None seen (None Seen) Urine Trichomonas None seen (NONE SEEN) Urine Yeast None (NONE SEEN) Urinalysis Comment None Urine Culture Reflexed Not indicated White Blood Count 4.8th/mm3 (3.8-10.1) Red Blood Count 3.13mil/mm3 (4.40-5.80) Hemoglobin 10.4g/dL (13.8-17.2) Hematocrit 31.5% (41.0-50.0) Mean Corpuscular Volume 100.6fL (81-100) Mean Corpuscular Hemoglobin 33.2pg (27.0-35.0) Mean Corpuscular Hemoglobin Concent 33.0% (32.0-37.0) Red Cell Distribution Width 13.5% (12.3-15.4) Platelet Count 164bil/L (150-400) Neutrophils (%) (Auto) 62.8% (40-74) Lymphocytes (%) (Auto) 21.5% (14-46) Monocytes (%) (Auto) 8.4% (4-12) Eosinophils (%) (Auto) 6.7% (0-5) Basophils (%) (Auto) 0.4% (0-3) Troponin T 0.025ug/L (0.0-0.011) Test 05/15/17 05:40 05/15/17 10:45 05/16/17 05:40 Iron Level 31ug/dL (35-150) Total Iron Binding Capacity 149ug/dL (250-450) Percent Iron Saturation 21%sat (15-50) Unsaturated Iron Binding 118.4ug/dL Digoxin Level 0.6nG/mL (0.9-2.0) Sodium Level 138mEq/L (134-144) Potassium Level 4.5mEq/L (3.5-5.2) Chloride Level 99mEq/L (97-108) Carbon Dioxide Level 26mmol/L (18-29) Blood Urea Nitrogen 36mg/dL (8-27) Creatinine 4.83mg/dL (0.76-1.27) Estimat Glomerular Filtration Rate 12mL/min (>59) Glucose Level 92mg/dL (60-99) Calcium Level 9.5mg/dL (8.5-10.1) Discharge Medications Discharge Medications Apixaban (Eliquis) 5 Mg Tablet 2.5 MG PO BID Prescribed by: RADHA PEREZ MD Aspirin (Aspirin) 81 Mg Tablet 81 MG PO QAM (Reported) Atorvastatin Calcium (Atorvastatin Calcium) 80 Mg Tablet 40 MG PO HS (Reported) Calcitriol (Rocaltrol) 0.25 Mcg Capsule 0.5 MCG PO QAM (Reported) Cholecalciferol (Vitamin D3) (Vitamin D3) 2,000 Unit Tablet 2,000 UNIT PO QAM ( Reported) Clopidogrel Bisulfate (Plavix) 75 Mg Tablet 75 MG PO QAM (Reported) Digoxin (Digoxin) 125 Mcg Tablet 62.5 MCG AD Q48H Prescribed by: RADHA PEREZ MD Digoxin (Lanoxin) 0.125 Mg Tablet 0.125 MG PO DAILY@12 Prescribed by: GIUSEPPE HERNANDEZ MD Finasteride (Finasteride) 5 Mg Tablet 5 MG PO QAM (Reported) Fluorouracil (Fluoroplex) 30 Gm Cream..g. 1 APPLIC TP BID (Reported) TO CANCEROUS SKIN LESIONS Lysine (Lysine) 1,000 Mg Tablet 1,000 MG PO QAM (Reported) Metoprolol Tartrate (Metoprolol Tartrate) 25 Mg Tablet 37.5 MG PO BID Hold for Systolic BP less than 100 Prescribed by: RADHA PEREZ MD Sevelamer Carbonate (Renvela) 800 Mg Tablet 800 MG PO TIDWM (Reported) Tamsulosin ER (Tamsulosin ER) 0.4 Mg Cap.er.24h 0.4 MG PO BID (Reported) Torsemide (Torsemide) 20 Mg Tablet 20 MG PO QAM (Reported) As needed Albuterol HFA (Proair HFA) 8.5 Gm Hfa.aer.ad 2 PUFFS INHALATION Q4H PRN PRN For Shortness of Breath (Reported) Diltiazem (Diltiazem) 30 Mg Tablet 30 MG PO QID PRN PRN palpitations Prescribed by: GIUSEPPE HERNANDEZ MD Hyoscyamine (Hyoscyamine) 0.125 Mg Tablet 0.125 MG PO Q4H PRN PRN BLADDER SPASMS (Reported) Nitroglycerin SL (Nitrostat) 0.4 Mg Tablet 0.4 MG SL Q5MIN PRN PRN For Chest Pain Prescribed by: EDISON CALDERON MD Oxycodone HCl/Acetaminophen (Endocet 10-325 mg Tablet) 1 Each Tablet 1-2 EACH PO Q4H PRN PRN For Pain (Reported) Sennosides (Senna) 8.6 Mg Tablet 8.6 MG PO QAM PRN PRN For Constipation ( Reported) Triamcinolone Acet (Triamcinolone Acetonide Ointment) 1 Applic/0.25 Gm Oint 1 APPLIC TOP BID PRN PRN RASH (Reported) Followup Plan Follow-up plan Dr. Chacon, watch inspector final movement Follow-up Provider: Valdo Horvath MD Follow-up with PCP in: Other (2-3 days, sooner if problems) Time spent 60 minutes copies to: Janeth Chacon MD; Valdo Horvath MD, Cheryl A MD May 16, 2017 10:27
--- NOTE | 2017-05-16 10:54 | PCM.PNNEPH ---
Subjective Date of Service May 16, 2017 Subjective The patient was seen and examined and I have thoroughly reviewed the patient's chart. Mr. Castro has a history of end-stage renal disease and atrial fibrillation. He was admitted to [facility] for rapid ventricular response and acute congestive heart failure. Since admission his had several dialysis treatments and states that he feels considerably better today. His ejection fraction shows a value of about 30-35%. This morning he states that he feels much better and denies any chest pain, shortness of breath, palpitations, nausea, vomiting, or diminished appetite. His systolic blood pressures have been averaging in the 90-110-120 range. This morning his sodium is 138, potassium 4.5, chloride 99, bicarbonate 26, BUN and creatinine were 36 and 4.83 respectively. Exam Vital Signs Vital Sign - Last Date Time Temp Pulse Resp B/P Pulse Ox O2 Delivery O2 Flow Rate FiO2 05/16/17 09:19 99 05/16/17 08:43 36.7 18 90/56 96 Room Air 05/16/17 08:13 0.50 Intake and Output 05/15/17 05/15/17 05/16/17 Cumulative From/Thru 15:00 23:00 07:00 05/11/17 13:40 - 05/16/17 06:47 Intake Total 450 ml 710 ml 300 ml 4579 ml Output Total 0 ml 225 ml 340 ml 8235 ml Balance 450 ml 485 ml -40 ml -3656 ml Intake Oral 200 ml 710 ml 300 ml 4219 ml IV Total 250 ml 360 ml Output Urine Total 0 ml 225 ml 340 ml 2235 ml Ultrafiltrate 6000 ml # Bowel Movements 2 1 4 Exam Neck is supple without adenopathy, thyromegaly, or jugular venous distention. Lungs are clear to auscultation though somewhat diminished in both bases. Heart was irregularly irregular. Abdomen is soft without any tenderness or rebound guarding masses or hepatosplenomegaly. Extremities do not show any evidence of any clubbing, cyanosis, or edema. Skin turgor is good and there is evidence of [id number] nails but no evidence of any rashes. Lab and Diagnostics Result Diagram: 05/12/17 0520 05/16/17 0540 X-Rays, CTs and MRIs PROCEDURE: X-RAY CHEST ONE VIEW, PORTABLE ([id number]) INDICATIONS: orthopnea TECHNIQUE: One view of the chest was acquired. COMPARISON: [facility], CR, XR CHEST 1VW (PORTABLE), 04/09/2016, 5: 47. FINDINGS: Surgical changes and devices: Postoperative changes of the chest are again evident. Lungs and pleura: There are low lung volumes. Increased lung markings are evident within the bilateral lung bases. No large effusion or definite pneumothorax is appreciated. The pulmonary vasculature slightly prominent. Mediastinum: Mediastinal contours appear normal. Heart size is normal. There is aortic atherosclerosis. Bones and chest wall: No suspicious bony lesions. Overlying soft tissues appear unremarkable. IMPRESSION: 1. Mild bibasilar atelectasis. Superimposed pneumonia is felt to be less likely. 2. Mild vascular congestion without overt heart failure. Dictated by: Harish Waddell M.D. on 05/11/2017 at 14:37 Approved by: Harish Waddell M.D. on 05/11/2017 at 14:39 12-lead ECG EKG on May 11: Atrial fibrillation at a rate of 90 with Q in 3 and aVF Cardiac Echo Impressions Echocardiogram Report Name: ОЛЬГА CASTRO EStudy Date: 09/2016 Height: 6 9 in Hospital Exam Location: [facility] Weight: 1 97 lb Gender: Male BSA: 2B1 m2 : 1935 Age: 81 yrs BP: 114/7 2 mmHg Reason For Study: Atrial fibrillation Ordering Physician: SARAHIST [facility] Performed By: Opal Rome Referring Physician: Baldev Pradhan Interpretation Summary Afib with RVR Moderately dilated LV; there is global hypokinesis with severe apical hypokinesis. EF is 30-35%. EPSS is 1 consistent with cardiomyopathy. There is severe LA enlargement and moderate RA enlargement. Normal RV size. Aortic valve leaflets are severely thickened and calcified with limited leaflet excursion. In particular right and non-coronary leaflets demonstrate particularly impaired mobility, while left coronary leaflet moves the best. While peak velocity is 2.8 m/sec, this could be low gradient . DVI is 0.32. There is mild MAC with mildly thickened leaflets and moderate associated MR. There is mild TR with estimated PASP of 43 mm Hg. Comapred to prior study afib is new, cardiomyopathy is new. EF is down from 50-55% to 30-35%. Peak aortic velocity is unchanged. Plan Impression Impression #1 acute decompensated congestive heart failure which is resolving # 2 atrial fibrillation with rapid ventricular response which is resolved #3 hypertension with hypertensive heart disease and hypertensive nephrosclerosis with congestive heart failure which is resolved number for end-stage renal disease #5 history of renal mass with embolization Recommendations #1 the patient to be dialyzed today for 4 hours on a standard dialyzer, 3 potassium bath, no heparin, Cardizem 37 sodium 135 bicarbonate take approximately 1 L off. From my point of view he can be discharged per the primary team. Valdo Strange DO May 16, 2017 10:54
--- NOTE | 2017-05-16 10:57 | NUR ---
Social Work-readiness for discharge/multidisciplinary rounds: Data:EMR reviewed. Pt is on day 5 of hospitalization for new AFIB per H&P. Pt is likely medically stable later today or tomorrow. Per RN notes, pt has been up independent in his room. No MD orders for SW at this time. RT to see pt and evaluate for home O2 needs. No anticipated discharge needs. SW will continue to follow if needs arise. Assessment:Pt who is independent at baseline. Plan:Pt to discharge home when medically stable via POV. RT to see pt and evaluate for home O2 needs. No anticipated discharge needs. SW will continue to follow if needs arise. GAURAV Nichols
--- NOTE | 2017-05-16 11:29 | NUR ---
Dialysis Note pt presented to dialysis in stable condition, no complaints of pain R UA AVF washed soap/water, cleaned with chloraprep, cannulated with 15g needles x1 attempt per site without difficulty, site benign treatment started, pt tolerated well Addendum: 05/16/17 at 1438 by ANA GARCIA RN total treatment time 4.0 hours total net removed 1200 treatment ended blood returned, pt held x10 minutes per site, bleeding stopped, gauze and tape applied pt tolerated treatment well, no complaints, plans for discharge post treatment Report called to Eduardo ESPINOZA, pt stable upon discharge See DTR for complete treatment record
--- NOTE | 2017-05-16 15:19 | NUR ---
Pt amb on RA with SaO2 reading 95% and HR 79. After ~ 200 feet pt's SaO2 dropped to 84% with HR increasing to 88. Pt C/O increased SOB. O2 at 2 lpm placed on pt nasal cannula. Pt recovery time x 4 minutes with 2 lpm to be able to amb again. Pt able to finish amb of 600 feet with 2 lpm and maintain SaO2 between 93-95% with rest time of 15minutes post amb.
[2017-05-16] MEDS: Diphen-Lido-Mylanta 1:1:1 Susp 15 mL Syringe PO PRN (17:01)
--- NOTE | 2017-05-16 22:29 | NUR ---
HR Pt preparing for discharge. Tele notified pt rate was: Afib in 140s while walking in [place] with RT. RT said pt was satting in 80s but not in any apparent distress and pulse was around 80. MD notified and reviewed TELE strips. Discharge cancelled. Later in evening around 0 Tele reported pt rate was: Afib 144. Pt was found to be sitting on edge of bed, doing some ADLs -asymptomatic. Instructed to report any palpitations or chest pain. Tele reading stabilized when pt at rest: Afib 96.
[2017-05-17] VITALS (10 sets, daily range): BP systolic 93–120; BP diastolic 55–70; PULSE 81–103; RESP 16–20; O2SAT 90–97
--- NOTE | 2017-05-17 05:44 | NUR ---
NOC Activity Pt denies any chest pain, sob, n/v or abd discomfort. Has been pleasant and cooperative with care. Telemetry monitoring noted A-fib 90's, could go 110's with activity. VSS and has been afebrile. Continuing to monitor.
[2017-05-17] MEDS: Pantoprazole 40 mg ER24 Tablet PO SCH (06:38)
[2017-05-17] MEDS ORDERED: MeTOProlol XL 25 mg ER24 Tablet PO ONE (10:55)
--- NOTE | 2017-05-17 11:03 | PCM.PNNEPH ---
Subjective Date of Service May 17, 2017 Subjective The patient continues to do well with the exception of his ongoing atrial fibrillation with intermittent ventricular rapid ventricular response. He denies any current chest pain, shortness of breath, dizziness, lightheadedness, nausea or vomiting. Exam Vital Signs Vital Sign - Last Date Time Temp Pulse Resp B/P Pulse Ox O2 Delivery O2 Flow Rate FiO2 05/17/17 10:03 103 05/17/17 08:47 36.8 17 93/55 94 Room Air 05/16/17 15:33 2.00 Intake and Output 05/16/17 05/16/17 05/17/17 Cumulative From/Thru 15:00 23:00 07:00 05/11/17 13:40 - 05/17/17 04:58 Intake Total 400 ml 300 ml 5279 ml Output Total 1200 ml 300 ml 100 ml 9835 ml Balance -1200 ml 100 ml 200 ml -4556 ml Intake Oral 400 ml 300 ml 4919 ml IV Total 360 ml Output Urine Total 300 ml 100 ml 2635 ml Ultrafiltrate 1200 ml 7200 ml # Voids 1 1 # Bowel Movements 0 1 5 Exam Neck is supple without adenopathy, thyromegaly, or jugular venous distention. Lungs are clear to auscultation. Heart was irregularly irregular. Abdomen is soft out any tenderness or rebound guarding masses or hepatosplenomegaly. Extremities not showing evidence of any clubbing cyanosis or edema. Lab and Diagnostics Result Diagram: 05/12/17 0520 05/17/17 0530 X-Rays, CTs and MRIs PROCEDURE: X-RAY CHEST ONE VIEW, PORTABLE ([id number]) INDICATIONS: orthopnea TECHNIQUE: One view of the chest was acquired. COMPARISON: [facility], CR, XR CHEST 1VW (PORTABLE), 04/09/2016, 5: 47. FINDINGS: Surgical changes and devices: Postoperative changes of the chest are again evident. Lungs and pleura: There are low lung volumes. Increased lung markings are evident within the bilateral lung bases. No large effusion or definite pneumothorax is appreciated. The pulmonary vasculature slightly prominent. Mediastinum: Mediastinal contours appear normal. Heart size is normal. There is aortic atherosclerosis. Bones and chest wall: No suspicious bony lesions. Overlying soft tissues appear unremarkable. IMPRESSION: 1. Mild bibasilar atelectasis. Superimposed pneumonia is felt to be less likely. 2. Mild vascular congestion without overt heart failure. Dictated by: Harish Waddell M.D. on 05/11/2017 at 14:37 Approved by: Harish Waddell M.D. on 05/11/2017 at 14:39 12-lead ECG EKG on May 11: Atrial fibrillation at a rate of 90 with Q in 3 and aVF Cardiac Echo Impressions Echocardiogram Report Name: ОЛЬГА CLARK EStudy Date: 09/2016 Height: 6 9 in Hospital Exam Location: [facility] Weight: 1 97 lb Gender: Male BSA: 2B1 m2 : 1935 Age: 81 yrs BP: 114/7 2 mmHg Reason For Study: Atrial fibrillation Ordering Physician: HOSPITALIST [facility] Performed By: Opal Rome Referring Physician: Baldev Pradhan Interpretation Summary Afib with RVR Moderately dilated LV; there is global hypokinesis with severe apical hypokinesis. EF is 30-35%. EPSS is 1 consistent with cardiomyopathy. There is severe LA enlargement and moderate RA enlargement. Normal RV size. Aortic valve leaflets are severely thickened and calcified with limited leaflet excursion. In particular right and non-coronary leaflets demonstrate particularly impaired mobility, while left coronary leaflet moves the best. While peak velocity is 2.8 m/sec, this could be low gradient . DVI is 0.32. There is mild MAC with mildly thickened leaflets and moderate associated MR. There is mild TR with estimated PASP of 43 mm Hg. Comapred to prior study afib is new, cardiomyopathy is new. EF is down from 50-55% to 30-35%. Peak aortic velocity is unchanged. Plan Impression Impression #1 end-stage renal disease dialysis dependent #2 ischemic cardiomyopathy #3 hypertension with hypertensive heart disease and hypertensive nephrosclerosis with concomitant congestive heart failure which is resolving and number for renal mass status post ablation Recommendations #1 chromic arrangements for his dialysis in the morning. Valdo Strange DO May 17, 2017 11:03
[2017-05-17] MEDS: Diphen-Lido-Mylanta 1:1:1 Susp 15 mL Syringe PO PRN (11:05)
--- NOTE | 2017-05-17 11:06 | PCM.PNMED ---
Subjective Date of Service May 17, 2017 Subjective Doing well. No chest pain or dyspnea. No abdomen pain. No fevers or chills, palpitations. No overnight events. Exam Vital Signs Vital Sign - Last Date Time Temp Pulse Resp B/P Pulse Ox O2 Delivery O2 Flow Rate FiO2 05/17/17 10:03 103 05/17/17 08:47 36.8 17 93/55 94 Room Air 05/16/17 15:33 2.00 Intake and Output 05/16/17 05/16/17 05/17/17 Cumulative From/Thru 15:00 23:00 07:00 05/11/17 13:40 - 05/17/17 04:58 Intake Total 400 ml 300 ml 5279 ml Output Total 1200 ml 300 ml 100 ml 9835 ml Balance -1200 ml 100 ml 200 ml -4556 ml Intake Oral 400 ml 300 ml 4919 ml IV Total 360 ml Output Urine Total 300 ml 100 ml 2635 ml Ultrafiltrate 1200 ml 7200 ml # Voids 1 1 # Bowel Movements 0 1 5 Exam Alert and in no distress Anicteric sclera Lungs clear Heart irregular with 3/6 systolic murmur Abdomen soft, non tender No rash No edema IVs and Medications Medications Reviewed: Medications were reviewed in detail Lab and Diagnostics Result Diagram: 05/12/17 0520 05/17/17 0530 X-Rays, CTs and MRIs PROCEDURE: X-RAY CHEST ONE VIEW, PORTABLE ([id number]) INDICATIONS: orthopnea TECHNIQUE: One view of the chest was acquired. COMPARISON: [facility], CR, XR CHEST 1VW (PORTABLE), 04/09/2016, 5: 47. FINDINGS: Surgical changes and devices: Postoperative changes of the chest are again evident. Lungs and pleura: There are low lung volumes. Increased lung markings are evident within the bilateral lung bases. No large effusion or definite pneumothorax is appreciated. The pulmonary vasculature slightly prominent. Mediastinum: Mediastinal contours appear normal. Heart size is normal. There is aortic atherosclerosis. Bones and chest wall: No suspicious bony lesions. Overlying soft tissues appear unremarkable. IMPRESSION: 1. Mild bibasilar atelectasis. Superimposed pneumonia is felt to be less likely. 2. Mild vascular congestion without overt heart failure. Dictated by: Harish Waddell M.D. on 05/11/2017 at 14:37 Approved by: Harish Waddell M.D. on 05/11/2017 at 14:39 12-lead ECG EKG on May 11: Atrial fibrillation at a rate of 90 with Q in 3 and aVF Cardiac Echo Impressions Echocardiogram Report Name: ОЛЬГА CLARK Date: 09/2016 Height: 6 9 in Hospital Exam Location: [facility] Weight: 1 97 lb Gender: Male BSA: 2B1 m2 : 1935 Age: 81 yrs BP: 114/7 2 mmHg Reason For Study: Atrial fibrillation Ordering Physician: HOSPITALIST [facility] Performed By: Opal Rome Referring Physician: Baldev Pradhan Interpretation Summary Afib with RVR Moderately dilated LV; there is global hypokinesis with severe apical hypokinesis. EF is 30-35%. EPSS is 1 consistent with cardiomyopathy. There is severe LA enlargement and moderate RA enlargement. Normal RV size. Aortic valve leaflets are severely thickened and calcified with limited leaflet excursion. In particular right and non-coronary leaflets demonstrate particularly impaired mobility, while left coronary leaflet moves the best. While peak velocity is 2.8 m/sec, this could be low gradient . DVI is 0.32. There is mild MAC with mildly thickened leaflets and moderate associated MR. There is mild TR with estimated PASP of 43 mm Hg. Comapred to prior study afib is new, cardiomyopathy is new. EF is down from 50-55% to 30-35%. Peak aortic velocity is unchanged. Assessment & Plan 81-year-old male past medical history most significant for new onset atrial fibrillation in conjunction with end-stage renal disease dialysis dependent, admitted on recommendation of cardiology for expectant cardioversion following medical evaluation #. Orthopnea/Shortness of Breath, acute, present on admission and active. Hypoxic with exertion -Most likely related to both combination of RVR atrial fibrillation with resultant acute systolic congestive heart failure -Patient has no dialysis schedule for today -Patient was relatively hypotensive got 250 mg normal saline remain slightly hypotensive we will get another 250 mils of normal saline Home with oxygen for exertion #. Congestive heart failure, systolic type, acute, present on admission and improved. - Discussing this case with Dr Chacon, believes Orthopnea is the result of a progressive heart failure in the setting of volume overload - As blood pressures remain low, HD has been less aggressive due to concern for producing worsening hypotension, rate control further complicated by inconsistent metoprolol dosing. - Supplemental oxygen as needed, problem base treatment as detailed below - Pt taking Torsemide at home, this would suggest the ability to create some urine -Repeat chest x-rays pending today -Echocardiogram showed worsening left ventricular ejection fraction down from 50 -55% to 30-35% (please see report as noted above) -As per Dr. Chacon patient will follow-up in her office for consideration of cardioversion #. Atrial fibrillation, RVR, acute, present on admission and active - Patient has not responded well to rate control therapy both given after dialysis in addition to borderline low blood pressures - We will monitor on telemetry - Cardiology requesting admission, will consider cardioversion in house proceeded by [facility] - Given difficulties in achieving stable INR, will convert patient to Eliquis at admit, renally dosed at 2.5mg PO BID on recommendation from Dr Chacon. -Have again increased his oral metoprolol to 37.5 mg by mouth twice a day but have written hold parameters for systolic blood pressure less than or equal to 100. --continue digoxin and add metoprolol 25 this am. Ambulate. Titrate medications as needed today. #. End stage renal disease dialysis dependent, present on admission and stable - Continue patient on home medications - Appreciate nephrology consultation -HD tomorrow before discharge #. Coronary artery disease, present on admission and stable - Continue outpatient medications this time including statin, dual-antiplatelet therapy consisting of aspirin and Plavix therapy, and so on Delay discharge until for rate control VTE Prophylaxis: Other VTE Mechanical Devices: Intermittant Pneumatic CD Resuscitation Status: CPR: Attempt Resuscitation Bradley Carson MD May 17, 2017 11:06
--- NOTE | 2017-05-17 19:43 | NUR ---
Ambulation eval HR/O2 Pt ambulated around unit 1x with PERSONAL CARE ATTENDANT on RA. O2 Available, Tele watching for change in readings. Pt denies SOB and CP. Tolerated well, PERSONAL CARE ATTENDANT reports that SpO2 was suspiciously in mid 90s entire time. Suggest to repeat eval with different pulse ox monitoring. Tele reports HR was elevated but no more than 110s.
[2017-05-18] VITALS (7 sets, daily range): BP systolic 82–117; BP diastolic 50–70; PULSE 78–104; RESP 18–21; O2SAT 93–95
[2017-05-18] MEDS: Pantoprazole 40 mg ER24 Tablet PO SCH (06:54)
--- NOTE | 2017-05-18 08:45 | NUR ---
off unit Pt is of unit to [facility] [place] rm 244. Metoprolol and digoxin held. Tele notified. no s/s of distress at time of transfer BP 107/70 afibb 92
--- NOTE | 2017-05-18 11:11 | PCM.PNNEPH ---
Subjective Date of Service May 18, 2017 Subjective Patient continues to do fair and offers no new complaints. He is scheduled for discharge today following his dialysis treatment. This morning his sodium is 137, potassium 4.2, chloride of 96, bicarbonate 27, BUN and creatinine were 30 and 4.98 respectively. Exam Vital Signs Vital Sign - Last Date Time Temp Pulse Resp B/P Pulse Ox O2 Delivery O2 Flow Rate FiO2 05/18/17 09:12 91 05/18/17 08:15 18 93 Room Air 05/18/17 07:49 36.8 107/70 05/16/17 15:33 2.00 Intake and Output 05/17/17 05/17/17 05/18/17 Cumulative From/Thru 15:00 23:00 07:00 05/11/17 13:40 - 05/18/17 05:39 Intake Total 300 ml 5579 ml Output Total 9835 ml Balance 300 ml -4256 ml Intake Oral 300 ml 5219 ml IV Total 360 ml Output Urine Total 2635 ml Ultrafiltrate 7200 ml # Voids 2 3 # Bowel Movements 0 5 Exam Neck is supple without adenopathy, thyromegaly, or jugular venous distention. Lungs are clear to auscultation. Heart is irregularly irregular. Abdomen is soft without any tenderness rebound guarding masses or hepatosplenomegaly. Extremities do not show any evidence of any clubbing cyanosis or edema. Lab and Diagnostics Result Diagram: 05/12/17 0520 05/18/17 0529 X-Rays, CTs and MRIs PROCEDURE: X-RAY CHEST ONE VIEW, PORTABLE ([id number]) INDICATIONS: orthopnea TECHNIQUE: One view of the chest was acquired. COMPARISON: [facility], CR, XR CHEST 1VW (PORTABLE), 04/09/2016, 5: 47. FINDINGS: Surgical changes and devices: Postoperative changes of the chest are again evident. Lungs and pleura: There are low lung volumes. Increased lung markings are evident within the bilateral lung bases. No large effusion or definite pneumothorax is appreciated. The pulmonary vasculature slightly prominent. Mediastinum: Mediastinal contours appear normal. Heart size is normal. There is aortic atherosclerosis. Bones and chest wall: No suspicious bony lesions. Overlying soft tissues appear unremarkable. IMPRESSION: 1. Mild bibasilar atelectasis. Superimposed pneumonia is felt to be less likely. 2. Mild vascular congestion without overt heart failure. Dictated by: Harish Waddell M.D. on 05/11/2017 at 14:37 Approved by: Harish Waddell M.D. on 05/11/2017 at 14:39 12-lead ECG EKG on May 11: Atrial fibrillation at a rate of 90 with Q in 3 and aVF Cardiac Echo Impressions Echocardiogram Report Name: ОЛЬГА CLARK Date: 09/2016 Height: 6 9 in Hospital Exam Location: [facility] Weight: 1 97 lb Gender: Male BSA: 2B1 m2 : 1935 Age: 81 yrs BP: 114/7 2 mmHg Reason For Study: Atrial fibrillation Ordering Physician: HOSPITALIST [facility] Performed By: Opal Rome Referring Physician: Baldev Pradhan Interpretation Summary Afib with RVR Moderately dilated LV; there is global hypokinesis with severe apical hypokinesis. EF is 30-35%. EPSS is 1 consistent with cardiomyopathy. There is severe LA enlargement and moderate RA enlargement. Normal RV size. Aortic valve leaflets are severely thickened and calcified with limited leaflet excursion. In particular right and non-coronary leaflets demonstrate particularly impaired mobility, while left coronary leaflet moves the best. While peak velocity is 2.8 m/sec, this could be low gradient . DVI is 0.32. There is mild MAC with mildly thickened leaflets and moderate associated MR. There is mild TR with estimated PASP of 43 mm Hg. Comapred to prior study afib is new, cardiomyopathy is new. EF is down from 50-55% to 30-35%. Peak aortic velocity is unchanged. Plan Impression Impression #1 end-stage renal disease dialysis dependent #2 ischemic cardiomyopathy #3 hypertension with hypertensive heart disease and hypertensive nephrosclerosis all with congestive heart failure which is resolved Recommendations #1 the patient be dialyzed today for 4 hours on a standard dialyzer, 3 potassium bath, 137 sodium, 35 bicarbonate, 400 rate with a 600 dialysate flow rate, no heparin, and will take 1-2 L of fluid off. Valdo Strange DO May 18, 2017 11:11
[2017-05-18] MEDS ORDERED: LAN125 PO (11:42)
--- NOTE | 2017-05-18 11:45 | PCM.DICHF ---
CHF Discharge Instructions Dates of Hospitalization Date of Hospital Admission May 11, 2017 at 15:59 Providers Admitting Physician: Carlton Steel DO Primary Care Physician: Valdo Horvath MD Attending Physician: Bradley Carson MD Diagnosis at Time of Discharge Diagnosis at time of discharge RVR A. fib with acute systolic congestive heart failure secondary to rapid rate Problems: Labs Ejection Fraction Laboratory Tests Test Range/Units 05/11/17 14:10 05/12/17 18:59 05/15/17 05:40 05/18/17 05:29 Magnesium Level 1.6-2.6 mg/dL 1.9 Total Bilirubin 0.0-1.2 mg/dL 0.3 Aspartate Amino Transf (AST/SGOT) 0-50 U/L 8 Alanine Aminotransferase (ALT/SGPT) 0-44 U/L 9 Alkaline Phosphatase 25-160 U/L 74 Pro-B-Type Natriuretic Peptide 0-486 pg/mL 60974 Total Protein 6.4-8.4 g/dL 6.1 Albumin 3.4-5.0 g/dL 3.5 Hold Mendez Top Tube Received Received Troponin T 0.0-0.011 ug/L 0.025 Iron Level 35-150 ug/dL 31 Total Iron Binding Capacity 250-450 ug/dL 149 Percent Iron Saturation 15-50 %sat 21 Unsaturated Iron Binding ug/dL 118.4 Vitamin B12 Level 211-946 pg/mL 493 Folate >3.0 ng/mL 10.5 Sodium Level 134-144 mEq/L 137 Potassium Level 3.5-5.2 mEq/L 4.2 Chloride Level 97-108 mEq/L 96 Carbon Dioxide Level 18-29 mmol/L 27 Blood Urea Nitrogen 8-27 mg/dL 30 Creatinine 0.76-1.27 mg/dL 4.98 Estimat Glomerular Filtration Rate >59 mL/min 12 Glucose Level 60-99 mg/dL 90 Calcium Level 8.5-10.1 mg/dL 9.6 Discharge Medications Other Medication Instructions You have received instructions on the medications your physician has prescribed at discharge. A list of these medications has been provided to you. Keep this and a list of all current medications with you. Keep the dates when you received the Flu and Pneumococcal (Pneumonia) Vaccines. Last known date of receiving Flu Vaccine declines Last known date of receiving Pneumococcal (Pneumonia) Vaccine 11/12/14 Diet CHF Discharge Diet: Low fat, Low Sodium Diet Instructions CHF Low Salt diet ( 2 grams or less sodium/day) Choose foods and drinks with low or no salt. Remove salt shaker from the table. Read Nutritional Facts labels. Activity CHF Discharge Activity: Balance rest and activity, Stop when short breath/pain/ dizzy Weight Monitoring 1. Weigh yourself every day at the same time and write it down. 2. Take your weight log to your doctor visits. 3. Call your doctor if you gain 3-5 pounds over 2-3 days. 4. Your weight today is 190.92 lbs. Additional Instructions Smoking--Tobacco Use If you smoke, you are strongly encouraged to stop. If you have recently quit smoking, CONGRATULATIONS. 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 *Swelling of your feet, ankles, hands or abdomen. *Feeling tired with normal activity or experiencing dizziness or fainting. *Trouble sleeping or waking up feeling short of breath or coughing. *Chest pain or pressure. *Weight gain of 3-5 pounds over 2-3 days. *Inability to take medications or follow treatment plan Heart Attach warning signs HEART ATTACK WARNING SIGNS * Chest discomfort. *Discomfort or pain in one or both arms, back, neck, jaw or stomach. *Shortness of breath. *Breaking out in a cold sweat, nausea, or lightheadedness. If you're having heart attack warning signs: CALL . DON'T WAIT MORE THAN A FEW MINUTES - 5 MINUTES AT MOST - TO CALL . Bradley Carson MD May 18, 2017 11:44
--- NOTE | 2017-05-18 12:48 | NUR ---
Social Work: Discharge Data & Assessment: EMR reviewed. Patient is on day 7 of hospitalization for new a-fib & chronic renal failure per H&P. Patient was discussed in morning rounds. Patient has been deemed medically stable for discharge today per MD. Patient will discharge home. Transportation will be provided by family member. Patient has no additional needs at this time. Plan: Patient will discharge home today. Transportation will be provided by family member. Patient has no additional needs at this time. GAURAV Dubose
--- NOTE | 2017-05-18 13:50 | NUR ---
Dialysis note: 4 hrs tx 1000 ml net UF WESLEY fistula, accessed w/ no problems Pls see DTR for VS details Qb 400 No heparin given O2 @ 2L via NC on during tx Tolerated treatment, slept at intervals Fistula needle sites clotted w/in 10 min Stable condition at end of tx Report given to Beatris ESPINOZA
--- NOTE | 2017-05-18 13:51 | NUR ---
Pt completed dialysis: Pt completed dialysis treatment and may return to [facility]. Pt tolerated dialysis with no complaints or requests. Report given to Tara Carvajal RN. [email or web address] aware of room change.
--- NOTE | 2017-05-18 14:03 | PCM.DC.MED ---
Discharge Summary Date of Service May 18, 2017 Dates of Hospitalization Date of Hospital Admission May 11, 2017 at 15:59 Date of Discharge: May 18, 2017 Providers: Admitting Physician: Carlton Steel DO Primary Care Physician: Valdo Horvath MD Attending Physician: Bradley Hernandez MD Diagnosis at Time of Discharge Diagnosis at Time of Discharge RVR A. fib with acute systolic congestive heart failure secondary to rapid rate Consultations Cardiology Procedures XRay, CTs & MRIs PROCEDURE: X-RAY CHEST ONE VIEW, PORTABLE ([id number]) INDICATIONS: orthopnea TECHNIQUE: One view of the chest was acquired. COMPARISON: [facility], CR, XR CHEST 1VW (PORTABLE), 04/09/2016, 5: 47. FINDINGS: Surgical changes and devices: Postoperative changes of the chest are again evident. Lungs and pleura: There are low lung volumes. Increased lung markings are evident within the bilateral lung bases. No large effusion or definite pneumothorax is appreciated. The pulmonary vasculature slightly prominent. Mediastinum: Mediastinal contours appear normal. Heart size is normal. There is aortic atherosclerosis. Bones and chest wall: No suspicious bony lesions. Overlying soft tissues appear unremarkable. IMPRESSION: 1. Mild bibasilar atelectasis. Superimposed pneumonia is felt to be less likely. 2. Mild vascular congestion without overt heart failure. Dictated by: Harish Waddell M.D. on 05/11/2017 at 14:37 Approved by: Harish Waddell M.D. on 05/11/2017 at 14:39 ECG 12 Lead EKG on May 11: Atrial fibrillation at a rate of 90 with Q in 3 and aVF Cardiac Echo Impression Echocardiogram Report Name: ОЛЬГА CLARK EStudy Date: 09/2016 Height: 6 9 in Hospital Exam Location: [facility] Weight: 1 97 lb Gender: Male BSA: 2B1 m2 : 1935 Age: 81 yrs BP: 114/7 2 mmHg Reason For Study: Atrial fibrillation Ordering Physician: HOSPITALIST [facility] Performed By: Opal Rome Referring Physician: Baldev Hospitalist Interpretation Summary Afib with RVR Moderately dilated LV; there is global hypokinesis with severe apical hypokinesis. EF is 30-35%. EPSS is 1 consistent with cardiomyopathy. There is severe LA enlargement and moderate RA enlargement. Normal RV size. Aortic valve leaflets are severely thickened and calcified with limited leaflet excursion. In particular right and non-coronary leaflets demonstrate particularly impaired mobility, while left coronary leaflet moves the best. While peak velocity is 2.8 m/sec, this could be low gradient . DVI is 0.32. There is mild MAC with mildly thickened leaflets and moderate associated MR. There is mild TR with estimated PASP of 43 mm Hg. Comapred to prior study afib is new, cardiomyopathy is new. EF is down from 50-55% to 30-35%. Peak aortic velocity is unchanged. Invasive Procedures Dialysis on normal schedule while in hospital including day of discharge. Brief History This is an 81 yo M with PMH of ESRD, CAD s/p CABG, dyslipidemia, nephrolithiasis , Afib, CHF, renal mass s/p embolization who was sent to ER by his solar installation helper due to uncontrolled Afib. Renal was consulted to manage ESRD. He has had worsening shortness of breath over the past 4 days. He was evaluated by his solar installation helper and planned to have cardioversion due to unsuccessful rate control with beta-patricia and hypotension. He is a patient of Dr. Khoury. He is dialyzed at [facility] every Monday, and Monday. He had treatment this morning. During my visit, he reports no chest pain, SOB, fever, chills, nausea, vomiting or diarrhea. PAST MEDICAL HISTORY: 1. End-stage renal disease on HD. 2. Coronary artery disease, status post TN with coronary artery bypass and stent placement. 3. Hyperlipidemia. 4. Renal lithiasis. 5. Renal mass and hematuria s/p embolization 6. Mitral regurgitation and aortic stenosis. 7. Atrial fibrillation. 8. Congestive heart failure. 9. Hypertension with hypertensive heart disease and hypertensive nephrosclerosis. PAST SURGICAL HISTORY: 1. s/p CABG 2. AVF creation 3. Lithotripsy SOCIAL HISTORY: h/o alcohol abuse former smoker ALLERGIES: Quinolone, ciprofloxacin FAMILY HISTORY: Significant for heart failure. REVIEW OF SYSTEMS: 14 point ROS performed. Hospital Course 81-year-old male past medical history most significant for new onset atrial fibrillation in conjunction with end-stage renal disease dialysis dependent, admitted on recommendation of cardiology for expectant cardioversion following medical evaluation #. Orthopnea/Shortness of Breath, acute, present on admission and active. Hypoxic with exertion -Most likely related to both combination of RVR atrial fibrillation with resultant acute systolic congestive heart failure -Patient has no dialysis schedule for today -Patient was relatively hypotensive got 250 mg normal saline remain slightly hypotensive we will get another 250 mils of normal saline Home with oxygen for exertion #. Congestive heart failure, systolic type, acute, present on admission and improved. - Discussing this case with Dr Chacon, believes Orthopnea is the result of a progressive heart failure in the setting of volume overload - As blood pressures remain low, HD has been less aggressive due to concern for producing worsening hypotension, rate control further complicated by inconsistent metoprolol dosing. - Supplemental oxygen as needed, problem base treatment as detailed below - Pt taking Torsemide at home, this would suggest the ability to create some urine -Repeat chest x-rays pending today -Echocardiogram showed worsening left ventricular ejection fraction down from 50 -55% to 30-35% (please see report as noted above) -As per Dr. Chacon patient will follow-up in her office for consideration of cardioversion #. Atrial fibrillation, RVR, acute, present on admission and active - Patient has not responded well to rate control therapy both given after dialysis in addition to borderline low blood pressures - We will monitor on telemetry - Cardiology requesting admission, will consider cardioversion in house proceeded by [facility] - Given difficulties in achieving stable INR, will convert patient to Eliquis at admit, renally dosed at 2.5mg PO BID on recommendation from Dr Chacon. -Have again increased his oral metoprolol to 37.5 mg by mouth twice a day but have written hold parameters for systolic blood pressure less than or equal to 100. --continue digoxin and add metoprolol 25 this am. Ambulate. Titrate medications as needed today. #. End stage renal disease dialysis dependent, present on admission and stable - Continue patient on home medications - Appreciate nephrology consultation -HD tomorrow before discharge #. Coronary artery disease, present on admission and stable - Continue outpatient medications this time including statin, dual-antiplatelet therapy consisting of aspirin and Plavix therapy, and so on Delay discharge until for rate control Hospital course. Patient was admitted for volume overload. He was treated for acute on chronic systolic heart failure. The patient was continued on hemodialysis without difficulty while in the hospital. He was also diuresed. The patient did have atrial fibrillation with intermittent rapid ventricular response. His metoprolol was titrated up to 37.5 mg twice a day and digoxin was started at 125 mg daily. The patient was started on a course and taken off warfarin at time of admitted owing to difficulty achieving and maintaining a stable INR. This was based on discussions with cardiology, Dr. Chacon. The patient did have ongoing rate control difficulties really prompting a 37.5 twice a day dose of metoprolol last 2 days of admission. The day of discharge he felt that he was at his baseline. He also noted he did not really feel any palpitations or other symptoms when he had periodic rapid ventricular response. Exam Vital Signs (Last) Date Time Temp Pulse Resp B/P Pulse Ox O2 Delivery O2 Flow Rate FiO2 05/18/17 09:12 91 05/18/17 08:15 18 93 Room Air 05/18/17 07:49 36.8 107/70 05/16/17 15:33 2.00 Exam Patient was seen and examined on the day of discharge. Test 05/11/17 14:10 05/11/17 17:09 05/12/17 05:20 05/12/17 18:59 Magnesium Level 1.9mg/dL (1.6-2.6) Total Bilirubin 0.3mg/dL (0.0-1.2) Aspartate Amino Transf (AST/SGOT) 8U/L (0-50) Alanine Aminotransferase (ALT/SGPT) 9U/L (0-44) Alkaline Phosphatase 74U/L (25-160) Pro-B-Type Natriuretic Peptide 47554mz/mL (0-486) Total Protein 6.1g/dL (6.4-8.4) Albumin 3.5g/dL (3.4-5.0) Hold Mendez Top Tube Received (Received) Urine Color Yellow (YELLOW) Urine Appearance Clear (CLEAR,HAZY) Urine pH 8.0 (5.0-8.0) Urine Specific [place] 1.015 (1.003-1.035) Urine Protein 100mg/dL (NEG,TRACE) Urine Glucose (UA) Negativemg/dL (NEGATIVE) Urine Ketones Negativemg/dL (NEGATIVE) Urine Occult Blood Trace (NEGATIVE) Urine Nitrite Negative (NEGATIVE) Urine Bilirubin Negative (NEGATIVE) Urine Urobilinogen Normalmg/dL (NORMAL) Urine Leukocyte Esterase Negative (NEGATIVE) Urine RBC 0-2/hpf (0-2) Urine WBC 0-5/hpf (0-5) Urine Epithelial Cells Few/hpf (NONE-MOD) Urine Crystals None seen (NONE SEEN) Urine Bacteria Few/hpf (NONE-FEW) Urine Hyaline Casts None/lpf (NONE) Urine Granular Casts None seen (NONE SEEN) Urine Waxy Casts None seen (NONE SEEN) Urine Red Blood Cell Casts None seen (NONE SEEN) Urine White Blood Cell Casts None seen (NONE SEEN) Urine Mucus None seen (None Seen) Urine Trichomonas None seen (NONE SEEN) Urine Yeast None (NONE SEEN) Urinalysis Comment None Urine Culture Reflexed Not indicated White Blood Count 4.8th/mm3 (3.8-10.1) Red Blood Count 3.13mil/mm3 (4.40-5.80) Hemoglobin 10.4g/dL (13.8-17.2) Hematocrit 31.5% (41.0-50.0) Mean Corpuscular Volume 100.6fL (81-100) Mean Corpuscular Hemoglobin 33.2pg (27.0-35.0) Mean Corpuscular Hemoglobin Concent 33.0% (32.0-37.0) Red Cell Distribution Width 13.5% (12.3-15.4) Platelet Count 164bil/L (150-400) Neutrophils (%) (Auto) 62.8% (40-74) Lymphocytes (%) (Auto) 21.5% (14-46) Monocytes (%) (Auto) 8.4% (4-12) Eosinophils (%) (Auto) 6.7% (0-5) Basophils (%) (Auto) 0.4% (0-3) Troponin T 0.025ug/L (0.0-0.011) Test 05/15/17 05:40 05/15/17 10:45 05/18/17 05:29 Iron Level 31ug/dL (35-150) Total Iron Binding Capacity 149ug/dL (250-450) Percent Iron Saturation 21%sat (15-50) Unsaturated Iron Binding 118.4ug/dL Vitamin B12 Level 493pg/mL (211-946) Folate 10.5ng/mL (>3.0) Digoxin Level 0.6nG/mL (0.9-2.0) Sodium Level 137mEq/L (134-144) Potassium Level 4.2mEq/L (3.5-5.2) Chloride Level 96mEq/L (97-108) Carbon Dioxide Level 27mmol/L (18-29) Blood Urea Nitrogen 30mg/dL (8-27) Creatinine 4.98mg/dL (0.76-1.27) Estimat Glomerular Filtration Rate 12mL/min (>59) Glucose Level 90mg/dL (60-99) Calcium Level 9.6mg/dL (8.5-10.1) Discharge Medications Discharge Medications Apixaban (Eliquis) 5 Mg Tablet 2.5 MG PO BID Prescribed by: АННА SAAB MD Aspirin (Aspirin) 81 Mg Tablet 81 MG PO QAM (Reported) Atorvastatin Calcium (Atorvastatin Calcium) 80 Mg Tablet 40 MG PO HS (Reported) Calcitriol (Rocaltrol) 0.25 Mcg Capsule 0.5 MCG PO QAM (Reported) Cholecalciferol (Vitamin D3) (Vitamin D3) 2,000 Unit Tablet 2,000 UNIT PO QAM ( Reported) Clopidogrel Bisulfate (Plavix) 75 Mg Tablet 75 MG PO QAM (Reported) Digoxin (Digoxin) 125 Mcg Tablet 62.5 MCG AD Q48H Prescribed by: АННА SAAB MD Digoxin (Lanoxin) 0.125 Mg Tablet 0.125 MG PO DAILY@12 Prescribed by: BRADLEY HERNANDEZ MD Finasteride (Finasteride) 5 Mg Tablet 5 MG PO QAM (Reported) Fluorouracil (Fluoroplex) 30 Gm Cream..g. 1 APPLIC TP BID (Reported) TO CANCEROUS SKIN LESIONS Lysine (Lysine) 1,000 Mg Tablet 1,000 MG PO QAM (Reported) Metoprolol Tartrate (Metoprolol Tartrate) 25 Mg Tablet 37.5 MG PO BID Hold for Systolic BP less than 100 Prescribed by: АННА SAAB MD Sevelamer Carbonate (Renvela) 800 Mg Tablet 800 MG PO TIDWM (Reported) Tamsulosin ER (Tamsulosin ER) 0.4 Mg Cap.er.24h 0.4 MG PO BID (Reported) Torsemide (Torsemide) 20 Mg Tablet 20 MG PO QAM (Reported) As needed Albuterol HFA (Proair HFA) 8.5 Gm Hfa.aer.ad 2 PUFFS INHALATION Q4H PRN PRN For Shortness of Breath (Reported) Diltiazem (Diltiazem) 30 Mg Tablet 30 MG PO QID PRN PRN palpitations Prescribed by: BRADLEY HERNANDEZ MD Hyoscyamine (Hyoscyamine) 0.125 Mg Tablet 0.125 MG PO Q4H PRN PRN BLADDER SPASMS (Reported) Nitroglycerin SL (Nitrostat) 0.4 Mg Tablet 0.4 MG SL Q5MIN PRN PRN For Chest Pain Prescribed by: EDISON CALDERON MD Oxycodone HCl/Acetaminophen (Endocet 10-325 mg Tablet) 1 Each Tablet 1-2 EACH PO Q4H PRN PRN For Pain (Reported) Sennosides (Senna) 8.6 Mg Tablet 8.6 MG PO QAM PRN PRN For Constipation ( Reported) Triamcinolone Acet (Triamcinolone Acetonide Ointment) 1 Applic/0.25 Gm Oint 1 APPLIC TOP BID PRN PRN RASH (Reported) Followup Plan Disposition: Home Follow-up plan Dr. Chacon, solar installation helper Follow-up Provider: Valdo Horvath MD Follow-up with PCP in: Other (2-3 days, sooner if problems) Time spent 40 minutes Bradley Hernandez MD May 18, 2017 14:03
--- NOTE | 2017-05-18 15:31 | NUR ---
discharge went over discharge instructions and followup appointment with pt who verbally acknowledged understanding. Removed intact IV. Pt left with no s/s of distress in wheelchair with [employer] to vehicle.
== END 2017-05-18 15:28 | disposition home or self-care (01) | DRG 308 ==
LOC: SED 13:35 → MPC 15:59
PROVIDERS: ADMIT Family Medicine; ATTEND Hospitalist
PROC: 5A1D60Z (ICD-10-PCS; principal; 2017-05-12)
DX: I48.91 Unspecified atrial fibrillation (principal); I50.21 Acute systolic (congestive) heart failure; N18.6 End stage renal disease; I13.2 Hypertensive heart and chronic kidney disease with heart failure and with stage 5 chronic kidney disease, or end stage renal disease; E78.5 Hyperlipidemia, unspecified; K21.9 Gastro-esophageal reflux disease without esophagitis; I25.10 Atherosclerotic heart disease of native coronary artery without angina pectoris; I25.5 Ischemic cardiomyopathy; I34.0 Nonrheumatic mitral (valve) insufficiency; Z99.2 Dependence on renal dialysis; Z79.82 Long term (current) use of aspirin; I25.2 Old myocardial infarction; Z87.891 Personal history of nicotine dependence; Z95.1 Presence of aortocoronary bypass graft; Z95.5 Presence of coronary angioplasty implant and graft